=== PATIENT | male | born 1955 | race Caucasian/White ===

== ENCOUNTER 2021-10-15 08:17 | Outpatient (CLI) | payer MEDICARE, MEDICAID, SELFPAY | END 2021-10-15 08:18 | disposition home or self-care (01) | LOC: ANHBWCAUD 08:19 | DX: H90.3 Sensorineural hearing loss, bilateral (principal) | CPT/HCPCS: 92557; 92567 ==

== ENCOUNTER 2024-10-02 08:19 | Outpatient (CLI) | payer MEDICARE, MEDICAID, SELFPAY ==
--- OUTSIDE RECORDS SUMMARY | 2024-10-02 08:37 | XMS_ITS | Encounter Summary ---
Author Organization [facility] Address [address] [place] [address] Phone Care Team Providers Care Monotype Operator Name Role Phone Leopoldo Rodriguez MD Unavailable [phone] Chris Bourgeois MD Primary Care Provider [phone] Encounter Details Date Type Department Care Team (Late st Contact Info) Description 07/07/2021 [facility] 1 [place] [address] Sher Nuñez MD [address] [place] [address] [place] [address] Social History Tobacco Use Types Packs/Day Years Used Date Smoking Tobacco: Never Smokeless Tobacco: Never Alcohol Use Standard Drinks/Week Comments Not Currently 0 (1 standard drink = 0.6 oz pur e alcohol) Sexually Active Control Partners Comments Never Sex and Gender Information Value Date Recorded Sex Assigned at Not on file Legal Sex Male 4:11 PM RINK RAT Gender Identity Not on file Sexual Orientation Not on file documented as of this encounter Plan of Treatment Not on file documented as of this encounter Visit Diagnoses Not on filedocumented in this encounter Additional Health Concerns Infection Onset Date Last Indicated Resolved Time COVID - 19 04/14/2021 08/11/2021 08/13/2021 9:45 AM RINK RAT COVID - 19 Confirmed 08/11/2021 08/11/2021 022 12:16 AM RINK RAT COVID - 19 09/01/2021 09/01/2021 09/21/2021 12:1 6 AM RINK RAT COVID - 19 09/29/2021 10/06/2021 10/26/2021 12:1 7 AM CDT COVID - 19 11/03/2021 05/04/2022 05/05/2022 12:1 8 AM CDT COVID - 19 Confirmed 05/04/2022 05/04/2022 022 12:16 AM CDT COVID - 19 07/20/2022 10/05/2022 10/15/2022 12:1 6 AM CDT COVID - 19 06/09/2024 06/09/2024 06/09/2024 1:18 AM RINK RAT Respiratory Rule-Out 08/27/2024 08/27/2024 025 12:16 AM RINK RAT documented as of this encounter Care Teams Monotype Operator Relationship Specialty Start Date End Date Chris Bourgeois MD [address] [place] [address] PCP - General Internal Medicine 07/03/19 Leopoldo Rodriguez MD Consulting Physician Neurology 09/14/17 06/09/24 documented as of this encounter
--- OUTSIDE RECORDS SUMMARY | 2024-10-02 08:37 | XMS_ITS | Encounter Summary ---
Author Organization [facility] Address [address] [place] [address] Phone Care Team Providers Care Math And Physics Instructor Name Role Phone Leopoldo Rodriguez MD Unavailable [phone] Chris Bourgeois MD Primary Care Provider [phone] Encounter Details Date Type Department Care Team (Late st Contact Info) Description 04/21/2021 Lab Requisition [facility] Laboratory Services 1 [place] [id number] Sher Nuñez MD [address] [place] [address] [facility] [address] [place] [address] Social History Tobacco Use Types Packs/Day Years Used Date Smoking Tobacco: Never Smokeless Tobacco: Never Alcohol Use Standard Drinks/Week Comments Not Currently 0 (1 standard drink = 0.6 oz pur e alcohol) Sexually Active Control Partners Comments Never Sex and Gender Information Value Date Recorded Sex Assigned at Not on file Legal Sex Male 4:11 PM STUDENT SUCCESS COUNSELOR Gender Identity Not on file Sexual Orientation Not on file documented as of this encounter Plan of Treatment Not on file documented as of this encounter Procedures Procedure Name Priority Date/Time Associated Diagnosis Comments SARS-COV-2 BY MOLECULAR Routine 04/21/2021 7:50 AM CDT documented in this encounter Results * SARS-COV-2 BY MOLECULAR (04/21/2021 7:50 AM CDT) SARSCOV2 NOT DETECTED (Referen ce Range for this test is Not Detected ) [facility] THERMOFISHER FAST DX 04/22/2021 5:10 AM CDT [facility] Comment:This test was perfor med by a RT-PCR method. Other Non-Phlebotomy Collection / Unknown 04/21/2021 7:50 AM CDT 04/21/2021 10:55 AM CDT Narrative [facility] - 04/22/2021 5:10 AM CDT Authorized Fact Sheets about this test for providers and patients are available at: https://www.fda.gov/medical-devices/ttaqokkml-znkabilfka-sxlkkmq-devices/emergen -us e-authorizations us Sher Nuñez MD MICROBIOLOGY - GENERAL ORDERAB LES Final Result [facility] [address] [place] [address], documented in this encounter Visit Diagnoses Not on filedocumented in this encounter Additional Health Concerns Infection Onset Date Last Indicated Resolved Time COVID - 19 04/14/2021 08/11/2021 08/13/2021 9:45 AM STUDENT SUCCESS COUNSELOR COVID - 19 Confirmed 08/11/2021 08/11/2021 022 12:16 AM STUDENT SUCCESS COUNSELOR COVID - 19 09/01/2021 09/01/2021 09/21/2021 12:1 6 AM STUDENT SUCCESS COUNSELOR COVID - 19 09/29/2021 10/06/2021 10/26/2021 12:1 7 AM CDT COVID - 19 11/03/2021 05/04/2022 05/05/2022 12:1 8 AM CDT COVID - 19 Confirmed 05/04/2022 05/04/2022 022 12:16 AM CDT COVID - 19 07/20/2022 10/05/2022 10/15/2022 12:1 6 AM CDT COVID - 19 06/09/2024 06/09/2024 06/09/2024 1:18 AM STUDENT SUCCESS COUNSELOR Respiratory Rule-Out 08/27/2024 08/27/2024 025 12:16 AM STUDENT SUCCESS COUNSELOR documented as of this encounter Care Teams Math And Physics Instructor Relationship Specialty Start Date End Date Chris Bourgeois MD [address] [place] [address] PCP - General Internal Medicine 07/03/19 Leopoldo Rodriguez MD Consulting Physician Neurology 09/14/17 06/09/24 documented as of this encounter
--- OUTSIDE RECORDS SUMMARY | 2024-10-02 08:37 | XMS_ITS | Encounter Summary ---
Author Organization [facility] Address [address] [place] [address] Phone Care Team Providers Care Cook Frozen Dessert Name Role Phone Leopoldo Rodriguez MD Unavailable [phone] Chris Bourgeois MD Primary Care Provider [phone] Encounter Details Date Type Department Care Team (Late st Contact Info) Description 07/21/2021 Lab Requisition [facility] Laboratory Services 1 [place] [address] Sher Nuñez MD [address] [place] [address] [facility] [address] [place] [address] Encounter for screening for COVID-19 Social History Tobacco Use Types Packs/Day Years Used Date Smoking Tobacco: Never Smokeless Tobacco: Never Alcohol Use Standard Drinks/Week Comments Not Currently 0 (1 standard drink = 0.6 oz pur e alcohol) Sexually Active Control Partners Comments Never Sex and Gender Information Value Date Recorded Sex Assigned at Not on file Legal Sex Male 4:11 PM DINKEY OPERATOR [place]ATE Gender Identity Not on file Sexual Orientation Not on file documented as of this encounter Plan of Treatment Not on file documented as of this encounter Procedures Procedure Name Priority Date/Time Associated Diagnosis Comments SARS-COV-2 BY MOLECULAR Routine 07/21/2021 7:42 AM DINKEY OPERATOR [place]ATE Encounter for screening for COVID-19 documented in this encounter Results * SARS-COV-2 BY MOLECULAR (07/21/2021 7:42 AM DINKEY OPERATOR [place]) SARSCOV2 NOT DETECTED (Referen ce Range for this test is Not Detected ) [facility] THERMOFISHER FAST DX 07/24/2021 11:18 AM DINKEY OPERATOR [place] [facility] Comment:This test was perfor med by a RT-PCR method. Other No Phlebotomy Charged / Unknown 07/21/2021 7:42 AM DINKEY OPERATOR [place] 07/21/2021 11:03 AM DINKEY OPERATOR [place] Narrative [facility] - 07/24/2021 11:18 AM DINKEY OPERATOR [place] Authorized Fact Sheets about this test for providers and patients are available at: https://www.fda.gov/medical-devices/quffsxtyi-iledqejtlo-eshwfnb-devices/emergen cy-us e-authorizations us Sher Nuñez MD MICROBIOLOGY - GENERAL ORDERAB LES Final Result [facility] [address] [place] [address], documented in this encounter Visit Diagnoses Diagnosis Encounter for screening for COVID-19 documented in this encounter Additional Health Concerns Infection Onset Date Last Indicated Resolved Time COVID - 19 04/14/2021 08/11/2021 08/13/2021 9:45 AM DINKEY OPERATOR [place] COVID - 19 Confirmed 08/11/2021 08/11/2021 022 12:16 AM DINKEY OPERATOR [place] COVID - 19 09/01/2021 09/01/2021 09/21/2021 12:1 6 AM DINKEY OPERATOR [place] COVID - 19 09/29/2021 10/06/2021 10/26/2021 12:1 7 AM CDT COVID - 19 11/03/2021 05/04/2022 05/05/2022 12:1 8 AM CDT COVID - 19 Confirmed 05/04/2022 05/04/2022 022 12:16 AM CDT COVID - 19 07/20/2022 10/05/2022 10/15/2022 12:1 6 AM CDT COVID - 19 06/09/2024 06/09/2024 06/09/2024 1:18 AM DINKEY OPERATOR [place] Respiratory Rule-Out 08/27/2024 08/27/2024 025 12:16 AM DINKEY OPERATOR [place] documented as of this encounter Care Teams Cook Frozen Dessert Relationship Specialty Start Date End Date Chris Bourgeois MD [address] [facility] [address] [place] [address] PCP - General Internal Medicine 07/03/19 Leopoldo Rodriguez MD Consulting Physician Neurology 09/14/17 06/09/24 documented as of this encounter
--- OUTSIDE RECORDS SUMMARY | 2024-10-02 08:37 | XMS_ITS | Encounter Summary ---
Author Organization [facility] Address [address] [place] [address] Phone Care Team Providers Care Chief Design Branch Name Role Phone Leopoldo Rodriguez MD Unavailable [phone] Chris Bourgeois MD Primary Care Provider [phone] Encounter Details Date Type Department Care Team (Late st Contact Info) Description 07/14/2021 Lab Requisition [facility] Laboratory Services 1 [place] [address] Sher Nuñez MD [address] [place] [address] [facility] [address] [place] [address] Encounter for screening for COVID-19 Social History Tobacco Use Types Packs/Day Years Used Date Smoking Tobacco: Never Smokeless Tobacco: Never Alcohol Use Standard Drinks/Week Comments Not Currently 0 (1 standard drink = 0.6 oz pur e alcohol) Sexually Active Control Partners Comments Never Sex and Gender Information Value Date Recorded Sex Assigned at Not on file Legal Sex Male 4:11 PM GOLF CLUB HEAD INSPECTOR AND ADJUSTER Gender Identity Not on file Sexual Orientation Not on file documented as of this encounter Plan of Treatment Not on file documented as of this encounter Procedures Procedure Name Priority Date/Time Associated Diagnosis Comments SARS-COV-2 BY MOLECULAR Routine 07/14/2021 7:30 AM GOLF CLUB HEAD INSPECTOR AND ADJUSTER Encounter for screening for COVID-19 documented in this encounter Results * SARS-COV-2 BY MOLECULAR (07/14/2021 7:30 AM GOLF CLUB HEAD INSPECTOR AND ADJUSTER) SARSCOV2 NOT DETECTED (Referen ce Range for this test is Not Detected ) [facility] THERMOFISHER FAST DX 07/17/2021 8:57 AM GOLF CLUB HEAD INSPECTOR AND ADJUSTER [facility] Comment:This test was perfor med by a RT-PCR method. Other No Phlebotomy Charged / Unknown 07/14/2021 7:30 AM GOLF CLUB HEAD INSPECTOR AND ADJUSTER 07/14/2021 10:46 AM GOLF CLUB HEAD INSPECTOR AND ADJUSTER Narrative [facility] - 07/17/2021 8:57 AM GOLF CLUB HEAD INSPECTOR AND ADJUSTER Authorized Fact Sheets about this test for providers and patients are available at: https://www.fda.gov/medical-devices/ubupnbjlo-yzhtlljmyz-oupjunb-devices/emergen cy-us e-authorizations us Sher Nuñez MD MICROBIOLOGY - GENERAL ORDERAB LES Final Result [facility] [address] [place] [address], documented in this encounter Visit Diagnoses Diagnosis Encounter for screening for COVID-19 documented in this encounter Additional Health Concerns Infection Onset Date Last Indicated Resolved Time COVID - 19 04/14/2021 08/11/2021 08/13/2021 9:45 AM GOLF CLUB HEAD INSPECTOR AND ADJUSTER COVID - 19 Confirmed 08/11/2021 08/11/2021 022 12:16 AM GOLF CLUB HEAD INSPECTOR AND ADJUSTER COVID - 19 09/01/2021 09/01/2021 09/21/2021 12:1 6 AM GOLF CLUB HEAD INSPECTOR AND ADJUSTER COVID - 19 09/29/2021 10/06/2021 10/26/2021 12:1 7 AM CDT COVID - 19 11/03/2021 05/04/2022 05/05/2022 12:1 8 AM CDT COVID - 19 Confirmed 05/04/2022 05/04/2022 022 12:16 AM CDT COVID - 19 07/20/2022 10/05/2022 10/15/2022 12:1 6 AM CDT COVID - 19 06/09/2024 06/09/2024 06/09/2024 1:18 AM GOLF CLUB HEAD INSPECTOR AND ADJUSTER Respiratory Rule-Out 08/27/2024 08/27/2024 025 12:16 AM GOLF CLUB HEAD INSPECTOR AND ADJUSTER documented as of this encounter Care Teams Chief Design Branch Relationship Specialty Start Date End Date Chris Bourgeois MD [address] [facility] [address] [place] [address] PCP - General Internal Medicine 07/03/19 Leopoldo Rodriguez MD Consulting Physician Neurology 09/14/17 06/09/24 documented as of this encounter
--- OUTSIDE RECORDS SUMMARY | 2024-10-02 08:37 | XMS_ITS | Encounter Summary ---
Author Organization [facility] Address [address] [place] [address] Phone Care Team Providers Care Bean Sorter Name Role Phone Leopoldo Rodriguez MD Unavailable [phone] Chris Bourgeois MD Primary Care Provider [phone] Encounter Details Date Type Department Care Team (Late st Contact Info) Description 07/07/2021 Lab Requisition [facility] Laboratory Services 1 [place] [address] Sher Nuñez MD [address] [place] [address] [facility] [address] [place] [address] Encounter for screening for COVID-19 Social History Tobacco Use Types Packs/Day Years Used Date Smoking Tobacco: Never Smokeless Tobacco: Never Alcohol Use Standard Drinks/Week Comments Not Currently 0 (1 standard drink = 0.6 oz pur e alcohol) Sexually Active Control Partners Comments Never Sex and Gender Information Value Date Recorded Sex Assigned at Not on file Legal Sex Male 4:11 PM FOOD SERVICE TECHNICIAN Gender Identity Not on file Sexual Orientation Not on file documented as of this encounter Plan of Treatment Not on file documented as of this encounter Procedures Procedure Name Priority Date/Time Associated Diagnosis Comments SARS-COV-2 BY MOLECULAR Routine 07/07/2021 7:34 AM FOOD SERVICE TECHNICIAN Encounter for screening for COVID-19 documented in this encounter Results * SARS-COV-2 BY MOLECULAR (07/07/2021 7:34 AM FOOD SERVICE TECHNICIAN) SARSCOV2 NOT DETECTED (Referen ce Range for this test is Not Detected ) [facility] THERMOFISHER FAST DX 07/09/2021 2:29 PM FOOD SERVICE TECHNICIAN [facility] Comment:This test was perfor med by a RT-PCR method. Other No Phlebotomy Charged / Unknown 07/07/2021 7:34 AM FOOD SERVICE TECHNICIAN 07/07/2021 11:34 AM FOOD SERVICE TECHNICIAN Narrative [facility] - 07/09/2021 2:29 PM FOOD SERVICE TECHNICIAN Authorized Fact Sheets about this test for providers and patients are available at: https://www.fda.gov/medical-devices/mvusiqdnt-cwmymehppt-thoupik-devices/emergen cy-us e-authorizations us Sher Nuñez MD MICROBIOLOGY - GENERAL ORDERAB LES Final Result [facility] [address] [place] [address], documented in this encounter Visit Diagnoses Diagnosis Encounter for screening for COVID-19 documented in this encounter Additional Health Concerns Infection Onset Date Last Indicated Resolved Time COVID - 19 04/14/2021 08/11/2021 08/13/2021 9:45 AM FOOD SERVICE TECHNICIAN COVID - 19 Confirmed 08/11/2021 08/11/2021 022 12:16 AM FOOD SERVICE TECHNICIAN COVID - 19 09/01/2021 09/01/2021 09/21/2021 12:1 6 AM FOOD SERVICE TECHNICIAN COVID - 19 09/29/2021 10/06/2021 10/26/2021 12:1 7 AM CDT COVID - 19 11/03/2021 05/04/2022 05/05/2022 12:1 8 AM CDT COVID - 19 Confirmed 05/04/2022 05/04/2022 022 12:16 AM CDT COVID - 19 07/20/2022 10/05/2022 10/15/2022 12:1 6 AM CDT COVID - 19 06/09/2024 06/09/2024 06/09/2024 1:18 AM FOOD SERVICE TECHNICIAN Respiratory Rule-Out 08/27/2024 08/27/2024 025 12:16 AM FOOD SERVICE TECHNICIAN documented as of this encounter Care Teams Bean Sorter Relationship Specialty Start Date End Date Chris Bourgeois MD [address] [place] [address] PCP - General Internal Medicine 07/03/19 Leopoldo Rodriguez MD Consulting Physician Neurology 09/14/17 06/09/24 documented as of this encounter
--- OUTSIDE RECORDS SUMMARY | 2024-10-02 08:37 | XMS_ITS | Encounter Summary ---
Author Organization [facility] Address [address] [place] [address] Phone Care Team Providers Care Calibration Specialist Name Role Phone Leopoldo Rodriguez MD Unavailable [phone] Chris Bourgeois MD Primary Care Provider [phone] Encounter Details Date Type Department Care Team (Late st Contact Info) Description 04/14/2021 Lab Requisition [facility] Laboratory Services 1 [place] [address] Sher Nuñez MD [address] [place] [address] [address] [place] [address] Encounter for screening for COVID-19 Social History Tobacco Use Types Packs/Day Years Used Date Smoking Tobacco: Never Smokeless Tobacco: Never Alcohol Use Standard Drinks/Week Comments Not Currently 0 (1 standard drink = 0.6 oz pur e alcohol) Sexually Active Control Partners Comments Never Sex and Gender Information Value Date Recorded Sex Assigned at Not on file Legal Sex Male 4:11 PM CLAIMS SERVICE ADJUSTOR Gender Identity Not on file Sexual Orientation Not on file documented as of this encounter Plan of Treatment Not on file documented as of this encounter Procedures Procedure Name Priority Date/Time Associated Diagnosis Comments SARS-COV-2 BY MOLECULAR Routine 04/14/2021 8:58 AM CDT documented in this encounter Results * SARS-COV-2 BY MOLECULAR (04/14/2021 8:58 AM CDT) SARSCOV2 NOT DETECTED (Referen ce Range for this test is Not Detected ) [facility] THERMOFISHER FAST DX 04/15/2021 8:26 AM CDT [facility] Comment:This test was perfor med by a RT-PCR method. Other No Phlebotomy Charged / Unknown 04/14/2021 8:58 AM CDT 04/14/2021 11:15 AM CDT Narrative [facility] - 04/15/2021 8:26 AM CDT Authorized Fact Sheets about this test for providers and patients are available at: https://www.fda.gov/medical-devices/ikrsozeqq-ilrdabbwzm-xjugnwn-devices/emergen cy-us e-authorizations us Sher Nuñez MD MICROBIOLOGY - GENERAL ORDERAB LES Final Result [facility] [address] [place] [address], documented in this encounter Visit Diagnoses Diagnosis Encounter for screening for COVID-19 documented in this encounter Additional Health Concerns Infection Onset Date Last Indicated Resolved Time COVID - 19 04/14/2021 08/11/2021 08/13/2021 9:45 AM CLAIMS SERVICE ADJUSTOR COVID - 19 Confirmed 08/11/2021 08/11/2021 022 12:16 AM CLAIMS SERVICE ADJUSTOR COVID - 19 09/01/2021 09/01/2021 09/21/2021 12:1 6 AM CLAIMS SERVICE ADJUSTOR COVID - 19 09/29/2021 10/06/2021 10/26/2021 12:1 7 AM CDT COVID - 19 11/03/2021 05/04/2022 05/05/2022 12:1 8 AM CDT COVID - 19 Confirmed 05/04/2022 05/04/2022 022 12:16 AM CDT COVID - 19 07/20/2022 10/05/2022 10/15/2022 12:1 6 AM CDT COVID - 19 06/09/2024 06/09/2024 06/09/2024 1:18 AM CLAIMS SERVICE ADJUSTOR Respiratory Rule-Out 08/27/2024 08/27/2024 025 12:16 AM CLAIMS SERVICE ADJUSTOR documented as of this encounter Care Teams Calibration Specialist Relationship Specialty Start Date End Date Chris Bourgeois MD [address] [place] [address] PCP - General Internal Medicine 07/03/19 Leopoldo Rodriguez MD Consulting Physician Neurology 09/14/17 06/09/24 documented as of this encounter
--- OUTSIDE RECORDS SUMMARY | 2024-10-02 08:37 | XMS_ITS | Encounter Summary ---
Author Organization [facility] Address [address] [place] [address] Phone Care Team Providers Care Chinchilla Machine Operator Name Role Phone Leopoldo Rodriguez MD Unavailable [phone] Chris Bourgeois MD Primary Care Provider [phone] Reason for Referral * Radiology Services (Routine) - Closed Specialty Diagnoses / Procedures Referred By Yoav levine Referred To Contact Radiology Diagnoses Pre-operative cardiovascular examination Encounter for preoperative screening laboratory testing for COVID-19 virus Localized osteoarthritis of knees, bilateral Procedures EKG 12 LEAD Yohan Camargo MD Phone: tel: fax: Referral ID Status Reason Start Date Expiration Date Visits Re quested Visits Authorized [id number] Closed 08/05/2020 1 1 TING CLERK * Radiology Services (Routine) - Closed Specialty Diagnoses / Procedures Referred By Yoav levine Referred To Contact Radiology Diagnoses Pre-operative cardiovascular examination Encounter for preoperative screening laboratory testing for COVID-19 virus Localized osteoarthritis of knees, bilateral Procedures XR CHEST SINGLE VIEW Yohan Camargo MD Phone: tel: fax: Referral ID Status Reason Start Date Expiration Date Visits Re quested Visits Authorized [id number] Closed 08/05/2020 1 1 TING CLERK Encounter Details Date Type Department Care Team (Latest Contact Info) Description 08/05/2020 Transcribe Orders [facility] Admitting 1 [place] [address] Yohan Camargo MD [address] [id number] Pre-operative cardiovascular examination (Primary Dx); Encounter for preoperative screening laboratory testing for COVID-19 virus; Localized osteoarthritis of knees, bilateral Social History Tobacco Use Types Packs/Day Years Used Date Smoking Tobacco: Never Smokeless Tobacco: Never Alcohol Use Standard Drinks/Week Comments Not Currently 0 (1 standard drink = 0.6 oz pur e alcohol) Sexually Active Control Partners Comments Never Sex and Gender Information Value Date Recorded Sex Assigned at Not on file Legal Sex Male 4:11 PM CHARTING CLERK Gender Identity Not on file Sexual Orientation Not on file COVID-19 Exposure Response Date Recorded In the last month, have you been in contact with someone who was confirmed or suspected to have Coronavirus / COVID-19? No / Unsure 08/06/2020 8:45 AM CHARTING CLERK documented as of this encounter Plan of Treatment Scheduled Orders Name Type Priority Associated Diagnoses Orde r Schedule XR CHEST SINGLE VIEW Imaging Routine Pre-operative cardiovascular examination Encounter for preoperative screening laboratory testing for COVID-19 virus Localized osteoarthritis of knees, bilateral Expected: 08/05/2020, Expires: 08/05/2021 EKG 12 LEAD ECG Routine Pre-operative cardiovascular examination Encounter for preoperative screening laboratory testing for COVID-19 virus Localized osteoarthritis of knees, bilateral Expected: 08/05/2020, Expires: 08/05/2021 documented as of this encounter Visit Diagnoses Diagnosis Pre-operative cardiovascular examination- Primary Encounter for preoperative screening laboratory testing for COVID-19 virus Localized osteoarthritis of knees, bilateral documented in this encounter Additional Health Concerns Infection Onset Date Last Indicated Resolved Time COVID - 19 04/14/2021 08/11/2021 08/13/2021 9:45 AM CHARTING CLERK COVID - 19 Confirmed 08/11/2021 08/11/2021 022 12:16 AM CHARTING CLERK COVID - 19 09/01/2021 09/01/2021 09/21/2021 12:1 6 AM CHARTING CLERK COVID - 19 09/29/2021 10/06/2021 10/26/2021 12:1 7 AM CDT COVID - 19 11/03/2021 05/04/202205/0505/05/2022 12:1 8 AM CDT COVID - 19 Confirmed 05/04/2022 05/04/2022 022 12:16 AM CDT COVID - 19 07/20/2022 10/05/2022 10/15/2022 12:1 6 AM CDT COVID - 19 06/09/2024 06/09/2024 06/09/2024 1:18 AM CHARTING CLERK Respiratory Rule-Out 08/27/2024 08/27/2024 025 12:16 AM CHARTING CLERK documented as of this encounter Care Teams Chinchilla Machine Operator Relationship Specialty Start Date End Date Chris Bourgeois MD [address] [address] PCP - General Internal Medicine 07/03/19 Leopoldo Rodriguez MD Consulting Physician Neurology 09/14/17 06/09/24 documented as of this encounter
--- OUTSIDE RECORDS SUMMARY | 2024-10-02 08:38 | XMS_ITS | Encounter Summary ---
Author Organization [facility] Address [address] [place] [address] Phone Care Team Providers Care River Guide Name Role Phone Leopoldo Rodriguez MD Unavailable [phone] Chris Bourgeois MD Primary Care Provider [phone] Encounter Details Date Type Department Care Team (Late st Contact Info) Description 09/14/2022 Lab Requisition [facility] Laboratory Services 1 [place] [address] Sher Nuñez MD [address] [place] [address] [facility] [address] [place] [address] Encounter for screening for COVID-19 Social History Tobacco Use Types Packs/Day Years Used Date Smoking Tobacco: Never Smokeless Tobacco: Never Alcohol Use Standard Drinks/Week Comments Not Currently 0 (1 standard drink = 0.6 oz pur e alcohol) Sexually Active Control Partners Comments Never Sex and Gender Information Value Date Recorded Sex Assigned at Not on file Legal Sex Male 4:11 PM CARBIDE POWDER PROCESSOR Gender Identity Not on file Sexual Orientation Not on file documented as of this encounter Plan of Treatment Not on file documented as of this encounter Procedures Procedure Name Priority Date/Time Associated Diagnosis Comments SARS-COV-2 BY MOLECULAR Routine 09/14/2022 7:36 AM CARBIDE POWDER PROCESSOR Encounter for screening for COVID-19 documented in this encounter Results * SARS-COV-2 BY MOLECULAR (09/14/2022 7:36 AM CARBIDE POWDER PROCESSOR) SARSCOV2 NOT DETECTED (Referen ce Range for this test is Not Detected ) [facility] THERMOFISHER FAST DX 09/15/2022 12:34 AM CARBIDE POWDER PROCESSOR [facility] Comment:This test was perfor med by a RT-PCR method. Other Non-Phlebotomy Collection / Unknown 09/14/2022 7:36 AM CARBIDE POWDER PROCESSOR 09/14/2022 10:21 AM CARBIDE POWDER PROCESSOR Narrative [facility] - 09/15/2022 12:34 AM CARBIDE POWDER PROCESSOR Authorized Fact Sheets about this test for providers and patients are available at: https://www.fda.gov/medical-devices/pdvrlbckx-lchgthtqnt-sehvrgo-devices/emergen cy-us e-authorizations us Sher Nuñez MD MICROBIOLOGY - GENERAL ORDERAB LES Final Result [facility] [address] [place] [address], documented in this encounter Visit Diagnoses Diagnosis Encounter for screening for COVID-19 documented in this encounter Additional Health Concerns Infection Onset Date Last Indicated Resolved Time COVID - 19 07/20/2022 10/05/2022 10/15/2022 12:1 6 AM CDT COVID - 19 06/09/2024 06/09/2024 06/09/2024 1:18 AM CARBIDE POWDER PROCESSOR Respiratory Rule-Out 08/27/2024 08/27/2024 025 12:16 AM CARBIDE POWDER PROCESSOR documented as of this encounter Care Teams River Guide Relationship Specialty Start Date End Date Chris Bourgeois MD [address] [facility] [address] [place] [address] PCP - General Internal Medicine 07/03/19 Leopoldo Rodriguez MD Consulting Physician Neurology 09/14/17 06/09/24 documented as of this encounter
--- OUTSIDE RECORDS SUMMARY | 2024-10-02 08:38 | XMS_ITS | Encounter Summary ---
Author Organization [facility] Address [address] [place] [address] Phone Care Team Providers Care Bottom Liquor Attendant Name Role Phone Leopoldo Rodriguez MD Unavailable [phone] Chris Bourgeois MD Primary Care Provider Encounter Details Date Type Department Care Team (Late st Contact Info) Description 06/23/2021 Lab Requisition [facility] Laboratory Services 1 [place] [id number] Sher Nuñez MD [address] [place] [address] [facility] [address] [place] [address] Social History Tobacco Use Types Packs/Day Years Used Date Smoking Tobacco: Never Smokeless Tobacco: Never Alcohol Use Standard Drinks/Week Comments Not Currently 0 (1 standard drink = 0.6 oz pur e alcohol) Sexually Active Control Partners Comments Never Sex and Gender Information Value Date Recorded Sex Assigned at Not on file Legal Sex Male 4:11 PM CHEMICAL INSPECTOR Gender Identity Not on file Sexual Orientation Not on file documented as of this encounter Plan of Treatment Not on file documented as of this encounter Procedures Procedure Name Priority Date/Time Associated Diagnosis Comments SARS-COV-2 BY MOLECULAR Routine 06/23/2021 7:23 AM CHEMICAL INSPECTOR documented in this encounter Results * SARS-COV-2 BY MOLECULAR (06/23/2021 7:23 AM CHEMICAL INSPECTOR) SARSCOV2 NOT DETECTED (Referen ce Range for this test is Not Detected ) [facility] THERMOFISHER FAST DX 06/24/2021 6:32 PM CHEMICAL INSPECTOR [facility] Comment:This test was perfor med by a RT-PCR method. Other Non-Phlebotomy Collection / Unknown 06/23/2021 7:23 AM CHEMICAL INSPECTOR 06/23/2021 11:28 AM CHEMICAL INSPECTOR Narrative [facility] - 06/24/2021 6:32 PM CHEMICAL INSPECTOR Authorized Fact Sheets about this test for providers and patients are available at: https://www.fda.gov/medical-devices/fwmxdjnjx-fgqpqkfikf-ezeevbk-devices/emergen cy-us e-authorizations us Sher Nuñez MD MICROBIOLOGY - GENERAL ORDERAB LES Final Result [facility] [address] [place] [address], documented in this encounter Visit Diagnoses Not on filedocumented in this encounter Additional Health Concerns Infection Onset Date Last Indicated Resolved Time COVID - 19 04/14/2021 08/11/2021 08/13/2021 9:45 AM CHEMICAL INSPECTOR COVID - 19 Confirmed 08/11/2021 08/11/2021 022 12:16 AM CHEMICAL INSPECTOR COVID - 19 09/01/2021 09/01/2021 09/21/2021 12:1 6 AM CHEMICAL INSPECTOR COVID - 19 09/29/2021 10/06/2021 10/26/2021 12:1 7 AM CDT COVID - 19 11/03/2021 05/04/2022 05/05/2022 12:1 8 AM CDT COVID - 19 Confirmed 05/04/2022 05/04/2022 022 12:16 AM CDT COVID - 19 07/20/2022 10/05/2022 10/15/2022 12:1 6 AM CDT COVID - 19 06/09/2024 06/09/2024 06/09/2024 1:18 AM CHEMICAL INSPECTOR Respiratory Rule-Out 08/27/2024 08/27/2024 025 12:16 AM CHEMICAL INSPECTOR documented as of this encounter Care Teams Bottom Liquor Attendant Relationship Specialty Start Date End Date Chris Bourgeois MD [address] [place] [address] PCP - General Internal Medicine 07/03/19 Leopoldo Rodriguez MD Consulting Physician Neurology 09/14/17 06/09/24 documented as of this encounter
--- OUTSIDE RECORDS SUMMARY | 2024-10-02 08:38 | XMS_ITS | Encounter Summary ---
Author Organization [facility] Address [address] [place] [address] Phone Care Team Providers Care Insurance Billing Clerk Name Role Phone Leopoldo Rodriguez MD Unavailable [phone] Chris Bourgeois MD Primary Care Provider [phone] Encounter Details Date Type Department Care Team (Late st Contact Info) Description 09/21/2022 Lab Requisition [facility] Laboratory Services 1 [place] [address] Sher Nuñez MD [address] [place] [address] [facility] [address] [place] [address] Encounter for screening for COVID-19 Social History Tobacco Use Types Packs/Day Years Used Date Smoking Tobacco: Never Smokeless Tobacco: Never Alcohol Use Standard Drinks/Week Comments Not Currently 0 (1 standard drink = 0.6 oz pur e alcohol) Sexually Active Control Partners Comments Never Sex and Gender Information Value Date Recorded Sex Assigned at Not on file Legal Sex Male 4:11 PM MESSAGING ARCHITECT Gender Identity Not on file Sexual Orientation Not on file documented as of this encounter Plan of Treatment Not on file documented as of this encounter Procedures Procedure Name Priority Date/Time Associated Diagnosis Comments SARS-COV-2 BY MOLECULAR Routine 09/21/2022 7:44 AM MESSAGING ARCHITECT Encounter for screening for COVID-19 documented in this encounter Results * SARS-COV-2 BY MOLECULAR (09/21/2022 7:44 AM MESSAGING ARCHITECT) SARSCOV2 NOT DETECTED (Referen ce Range for this test is Not Detected ) [facility] THERMOFISHER FAST DX 09/22/2022 8:02 AM MESSAGING ARCHITECT [facility] Comment:This test was perfor med by a RT-PCR method. Other Non-Phlebotomy Collection / Unknown 09/21/2022 7:44 AM MESSAGING ARCHITECT 09/21/2022 10:38 AM MESSAGING ARCHITECT Narrative [facility] - 09/22/2022 8:02 AM MESSAGING ARCHITECT Authorized Fact Sheets about this test for providers and patients are available at: https://www.fda.gov/medical-devices/dhfjdgukt-wjlqjphabn-shgjpha-devices/emergen cy-us e-authorizations us Sher Nuñez MD MICROBIOLOGY - GENERAL ORDERAB LES Final Result [facility] [address] [place] [address], documented in this encounter Visit Diagnoses Diagnosis Encounter for screening for COVID-19 documented in this encounter Additional Health Concerns Infection Onset Date Last Indicated Resolved Time COVID - 19 07/20/2022 10/05/2022 10/15/2022 12:1 6 AM CDT COVID - 19 06/09/2024 06/09/2024 06/09/2024 1:18 AM MESSAGING ARCHITECT Respiratory Rule-Out 08/27/2024 08/27/2024 025 12:16 AM MESSAGING ARCHITECT documented as of this encounter Care Teams Insurance Billing Clerk Relationship Specialty Start Date End Date Chris Bourgeois MD [address] [facility] [address] [place] [address] PCP - General Internal Medicine 07/03/19 Leopoldo Rodriguez MD Consulting Physician Neurology 09/14/17 06/09/24 documented as of this encounter
--- OUTSIDE RECORDS SUMMARY | 2024-10-02 08:38 | XMS_ITS | Encounter Summary ---
Author Organization [facility] Address [address] [place] [address] Phone Care Team Providers Care Electron Microscopist Name Role Phone Leopoldo Rodriguez MD Unavailable [phone] Chris Bourgeois MD Primary Care Provider [phone] Encounter Details Date Type Department Care Team (Late st Contact Info) Description 08/31/2022 Lab Requisition [facility] Laboratory Services 1 [place] [address] Sher Nuñez MD [address] [place] [address] [facility] [address] [place] [address] Encounter for screening for COVID-19 Social History Tobacco Use Types Packs/Day Years Used Date Smoking Tobacco: Never Smokeless Tobacco: Never Alcohol Use Standard Drinks/Week Comments Not Currently 0 (1 standard drink = 0.6 oz pur e alcohol) Sexually Active Control Partners Comments Never Sex and Gender Information Value Date Recorded Sex Assigned at Not on file Legal Sex Male 4:11 PM FLOUR INSPECTOR Gender Identity Not on file Sexual Orientation Not on file documented as of this encounter Plan of Treatment Not on file documented as of this encounter Procedures Procedure Name Priority Date/Time Associated Diagnosis Comments SARS-COV-2 BY MOLECULAR Routine 08/31/2022 7:33 AM FLOUR INSPECTOR Encounter for screening for COVID-19 documented in this encounter Results * SARS-COV-2 BY MOLECULAR (08/31/2022 7:33 AM FLOUR INSPECTOR) SARSCOV2 NOT DETECTED (Referen ce Range for this test is Not Detected ) [facility] THERMOFISHER FAST DX 08/31/2022 11:05 PM FLOUR INSPECTOR [facility] Comment:This test was perfor med by a RT-PCR method. Other Non-Phlebotomy Collection / Unknown 08/31/2022 7:33 AM FLOUR INSPECTOR 08/31/2022 10:20 AM FLOUR INSPECTOR Narrative [facility] - 08/31/2022 11:05 PM FLOUR INSPECTOR Authorized Fact Sheets about this test for providers and patients are available at: https://www.fda.gov/medical-devices/jngxhybxt-kujdqvuvau-obwhkig-devices/emergen cy-us e-authorizations us Sher Nuñez MD MICROBIOLOGY - GENERAL ORDERAB LES Final Result [facility] [address] [place] [address], documented in this encounter Visit Diagnoses Diagnosis Encounter for screening for COVID-19 documented in this encounter Additional Health Concerns Infection Onset Date Last Indicated Resolved Time COVID - 19 07/20/2022 10/05/2022 10/15/2022 12:1 6 AM CDT COVID - 19 06/09/2024 06/09/2024 06/09/2024 1:18 AM FLOUR INSPECTOR Respiratory Rule-Out 08/27/2024 08/27/2024 025 12:16 AM FLOUR INSPECTOR documented as of this encounter Care Teams Electron Microscopist Relationship Specialty Start Date End Date Chris Bourgeois MD [address] [facility] [address] [place] [address] PCP - General Internal Medicine 07/03/19 Leopoldo Rodriguez MD Consulting Physician Neurology 09/14/17 06/09/24 documented as of this encounter
--- OUTSIDE RECORDS SUMMARY | 2024-10-02 08:38 | XMS_ITS | Encounter Summary ---
Author Organization [facility] Address [address] [place] [address] Phone Care Team Providers Care Field Secretary Name Role Phone Leoopldo Rodriguez MD Unavailable [phone] Chris Bourgeois MD Primary Care Provider [phone] Encounter Details Date Type Department Care Team (Late st Contact Info) Description 08/10/2022 Lab Requisition [facility] Laboratory Services 1 [place] [address] Sher Nuñez MD [address] [place] [address] [facility] [address] [place] [address] Encounter for screening for COVID-19 Social History Tobacco Use Types Packs/Day Years Used Date Smoking Tobacco: Never Smokeless Tobacco: Never Alcohol Use Standard Drinks/Week Comments Not Currently 0 (1 standard drink = 0.6 oz pur e alcohol) Sexually Active Control Partners Comments Never Sex and Gender Information Value Date Recorded Sex Assigned at Not on file Legal Sex Male 4:11 PM CASH APPLICATIONS SPECIALIST Gender Identity Not on file Sexual Orientation Not on file documented as of this encounter Plan of Treatment Not on file documented as of this encounter Procedures Procedure Name Priority Date/Time Associated Diagnosis Comments SARS-COV-2 BY MOLECULAR Routine 08/10/2022 7:24 AM CASH APPLICATIONS SPECIALIST Encounter for screening for COVID-19 documented in this encounter Results * SARS-COV-2 BY MOLECULAR (08/10/2022 7:24 AM CASH APPLICATIONS SPECIALIST) SARSCOV2 NOT DETECTED (Referen ce Range for this test is Not Detected ) [facility] THERMOFISHER FAST DX 08/10/2022 8:36 PM CASH APPLICATIONS SPECIALIST [facility] Comment:This test was perfor med by a RT-PCR method. Other COVID 19 Collection / Unknown 08/10/2022 7:24 AM CASH APPLICATIONS SPECIALIST 08/10/2022 10:03 AM CASH APPLICATIONS SPECIALIST Narrative [facility] - 08/10/2022 8:36 PM CASH APPLICATIONS SPECIALIST Authorized Fact Sheets about this test for providers and patients are available at: https://www.fda.gov/medical-devices/vwjgrxmma-nklqzndgkt-puwvcbu-devices/emergen cy-us e-authorizations us Sher Nuñez MD MICROBIOLOGY - GENERAL ORDERAB LES Final Result [facility] [address] [place] [address], documented in this encounter Visit Diagnoses Diagnosis Encounter for screening for COVID-19 documented in this encounter Additional Health Concerns Infection Onset Date Last Indicated Resolved Time COVID - 19 07/20/2022 10/05/2022 10/15/2022 12:1 6 AM CDT COVID - 19 06/09/2024 06/09/2024 06/09/2024 1:18 AM CASH APPLICATIONS SPECIALIST Respiratory Rule-Out 08/27/2024 08/27/2024 025 12:16 AM CASH APPLICATIONS SPECIALIST documented as of this encounter Care Teams Field Secretary Relationship Specialty Start Date End Date Chris Bourgeois MD [address] [facility] [address] [place] [address] PCP - General Internal Medicine 07/03/19 Leopoldo Rodriguez MD Consulting Physician Neurology 09/14/17 06/09/24 documented as of this encounter
--- OUTSIDE RECORDS SUMMARY | 2024-10-02 08:38 | XMS_ITS | Encounter Summary ---
Author Organization [facility] Address [address] [place] [address] Phone Care Team Providers Care .Net Architect Name Role Phone Leopoldo Rodriguez MD Unavailable [phone] Chris Bourgeois MD Primary Care Provider [phone] Encounter Details Date Type Department Care Team (Late st Contact Info) Description 07/27/2022 Lab Requisition [facility] Laboratory Services 1 [place] [address] Sher Nuñez MD [address] [place] [address] [facility] [address] [place] [address] Encounter for screening for COVID-19 Social History Tobacco Use Types Packs/Day Years Used Date Smoking Tobacco: Never Smokeless Tobacco: Never Alcohol Use Standard Drinks/Week Comments Not Currently 0 (1 standard drink = 0.6 oz pur e alcohol) Sexually Active Control Partners Comments Never Sex and Gender Information Value Date Recorded Sex Assigned at Not on file Legal Sex Male 4:11 PM INSTRUMENT OPERATOR Gender Identity Not on file Sexual Orientation Not on file documented as of this encounter Plan of Treatment Not on file documented as of this encounter Procedures Procedure Name Priority Date/Time Associated Diagnosis Comments SARS-COV-2 BY MOLECULAR Routine 07/27/2022 7:17 AM INSTRUMENT OPERATOR Encounter for screening for COVID-19 documented in this encounter Results * SARS-COV-2 BY MOLECULAR (07/27/2022 7:17 AM INSTRUMENT OPERATOR) SARSCOV2 NOT DETECTED (Referen ce Range for this test is Not Detected ) [facility] THERMOFISHER FAST DX 07/27/2022 9:20 PM INSTRUMENT OPERATOR [facility] Comment:This test was perfor med by a RT-PCR method. Other COVID 19 Collection / Unknown 07/27/2022 7:17 AM INSTRUMENT OPERATOR 07/27/2022 9:50 AM INSTRUMENT OPERATOR Narrative [facility] - 07/27/2022 9:20 PM INSTRUMENT OPERATOR Authorized Fact Sheets about this test for providers and patients are available at: https://www.fda.gov/medical-devices/cfnqgwilm-hhlpzkbqrw-lddpaed-devices/emergen cy-us e-authorizations us Sher Nuñez MD MICROBIOLOGY - GENERAL ORDERAB LES Final Result [facility] [address] [place] [address], documented in this encounter Visit Diagnoses Diagnosis Encounter for screening for COVID-19 documented in this encounter Additional Health Concerns Infection Onset Date Last Indicated Resolved Time COVID - 19 07/20/2022 10/05/2022 10/15/2022 12:1 6 AM CDT COVID - 19 06/09/2024 06/09/2024 06/09/2024 1:18 AM INSTRUMENT OPERATOR Respiratory Rule-Out 08/27/2024 08/27/2024 025 12:16 AM INSTRUMENT OPERATOR documented as of this encounter Care Teams .Net Architect Relationship Specialty Start Date End Date Chris Bourgeois MD [address] [facility] [address] [place] [address] PCP - General Internal Medicine 07/03/19 Leopoldo Rodriguez MD Consulting Physician Neurology 09/14/17 06/09/24 documented as of this encounter
--- OUTSIDE RECORDS SUMMARY | 2024-10-02 08:38 | XMS_ITS | Encounter Summary ---
Author Organization [facility] Address [address] [place] [address] Phone Care Team Providers Care Split Leather Mosser Name Role Phone Leopoldo Rodriguez MD Unavailable [phone] Chris Bourgeois MD Primary Care Provider [phone] Reason for Visit * Reason Comments Medication Refill Encounter Details Date Type Department Care Team (Late st Contact Info) Description 04/21/2021 Refill [facility] [place] [address] Josue Lira MD [address] [facility] [address] [place] [address] Medication Refill Social History Tobacco Use Types Packs/Day Years Used Date Smoking Tobacco: Never Smokeless Tobacco: Never Alcohol Use Standard Drinks/Week Comments Not Currently 0 (1 standard drink = 0.6 oz pur e alcohol) Sexually Active Control Partners Comments Never Sex and Gender Information Value Date Recorded Sex Assigned at Not on file Legal Sex Male 4:11 PM POST ADOPTION COORDINATOR Gender Identity Not on file Sexual Orientation Not on file documented as of this encounter Miscellaneous Notes * Telephone Encounter - Bonnie Cody RN - 04/22/2021 7:39 AM CDT Medication failed the protocol, provider to review and approve the medication order if appropriate. Requested Prescriptions Pending Prescriptions Disp Refills oxybutynin (DITROPAN) 5 MG Tablet [Pharmacy Med Name: OXYBUTYNIN 5 MG TABLET] 60 Tablet 0 Sig: TAKE (1) TABLET BY MOUTH TWICE DAILY. Urinary Anticholinergics Protocol Failed - 04/21/2021 4:38 PM Failed - Active on medication list Passed - Visit with relevant provider in past 12 months or upcoming 90 days Recent Visits Date Type Provider Dept 08/03/20 Telemedicine Josue Lira MD [facility] [place] 06/15/20 Telemedicine Josue Lira MD [facility] [place] Showing recent visits within past 365 days and meeting all other requirements Future Appointments No visits were found meeting these conditions. Showing future appointments within next 90 days and meeting all other requirements Passed - GFR greater than or equal to 30 in past 12 months GFR, EST. NONAFRICAN Date Value Ref Range Status 08/14/2020 >60 >=60 Final documented in this encounter Plan of Treatment Not on file documented as of this encounter Visit Diagnoses Not on filedocumented in this encounter Additional Health Concerns Infection Onset Date Last Indicated Resolved Time COVID - 19 04/14/2021 08/11/2021 08/13/2021 9:45 AM POST ADOPTION COORDINATOR COVID - 19 Confirmed 08/11/2021 08/11/2021 022 12:16 AM POST ADOPTION COORDINATOR COVID - 19 09/01/2021 09/01/2021 09/21/2021 12:1 6 AM POST ADOPTION COORDINATOR COVID - 19 09/29/2021 10/06/2021 10/26/2021 12:1 7 AM CDT COVID - 19 11/03/2021 05/04/2022 05/05/2022 12:1 8 AM CDT COVID - 19 Confirmed 05/04/2022 05/04/2022 022 12:16 AM CDT COVID - 19 07/20/2022 10/05/2022 10/15/2022 12:1 6 AM CDT COVID - 19 06/09/2024 06/09/2024 06/09/2024 1:18 AM POST ADOPTION COORDINATOR Respiratory Rule-Out 08/27/2024 08/27/2024 025 12:16 AM POST ADOPTION COORDINATOR documented as of this encounter Care Teams Split Leather Mosser Relationship Specialty Start Date End Date Chris Bourgeois MD [address] [place] [address] PCP - General Internal Medicine 07/03/19 Leopoldo Rodriguez MD Consulting Physician Neurology 09/14/17 06/09/24 documented as of this encounter
--- OUTSIDE RECORDS SUMMARY | 2024-10-02 08:38 | XMS_ITS | Encounter Summary ---
Author Organization [facility] Address [address] [place] [address] Phone Care Team Providers Care Conductor/Brakeman Name Role Phone Leopoldo Rodriguez MD Unavailable [phone] Chris Bourgeois MD Primary Care Provider [phone] Encounter Details Date Type Department Care Team (Late st Contact Info) Description 08/04/2021 Lab Requisition [facility] Laboratory Services 1 [place] [id number] Sher Nuñez MD [address] [place] [address] [facility] [address] [place] [address] Social History Tobacco Use Types Packs/Day Years Used Date Smoking Tobacco: Never Smokeless Tobacco: Never Alcohol Use Standard Drinks/Week Comments Not Currently 0 (1 standard drink = 0.6 oz pur e alcohol) Sexually Active Control Partners Comments Never Sex and Gender Information Value Date Recorded Sex Assigned at Not on file Legal Sex Male 4:11 PM SCHEDULE CHECKER Gender Identity Not on file Sexual Orientation Not on file documented as of this encounter Plan of Treatment Not on file documented as of this encounter Procedures Procedure Name Priority Date/Time Associated Diagnosis Comments SARS-COV-2 BY MOLECULAR Routine 08/04/2021 8:26 AM SCHEDULE CHECKER documented in this encounter Results * SARS-COV-2 BY MOLECULAR (08/04/2021 8:26 AM SCHEDULE CHECKER) SARSCOV2 NOT DETECTED (Referen ce Range for this test is Not Detected ) [facility] THERMOFISHER FAST DX 08/06/2021 6:12 AM SCHEDULE CHECKER [facility] Comment:This test was perfor med by a RT-PCR method. Other Non-Phlebotomy Collection / Unknown 08/04/2021 8:26 AM SCHEDULE CHECKER 08/04/2021 11:00 AM SCHEDULE CHECKER Narrative [facility] - 08/06/2021 6:12 AM SCHEDULE CHECKER Authorized Fact Sheets about this test for providers and patients are available at: https://www.fda.gov/medical-devices/nfwpctrve-bthiwucedr-znmvgnj-devices/emergen cy-us e-authorizations us Sher Nuñez MD MICROBIOLOGY - GENERAL ORDERAB LES Final Result [facility] [address] [place] [address], documented in this encounter Visit Diagnoses Not on filedocumented in this encounter Additional Health Concerns Infection Onset Date Last Indicated Resolved Time COVID - 19 04/14/2021 08/11/2021 08/13/2021 9:45 AM SCHEDULE CHECKER COVID - 19 Confirmed 08/11/2021 08/11/2021 022 12:16 AM SCHEDULE CHECKER COVID - 19 09/01/2021 09/01/2021 09/21/2021 12:1 6 AM SCHEDULE CHECKER COVID - 19 09/29/2021 10/06/2021 10/26/2021 12:1 7 AM CDT COVID - 19 11/03/2021 05/04/2022 05/05/2022 12:1 8 AM CDT COVID - 19 Confirmed 05/04/2022 05/04/2022 022 12:16 AM CDT COVID - 19 07/20/2022 10/05/2022 10/15/2022 12:1 6 AM CDT COVID - 19 06/09/2024 06/09/2024 06/09/2024 1:18 AM SCHEDULE CHECKER Respiratory Rule-Out 08/27/2024 08/27/2024 025 12:16 AM SCHEDULE CHECKER documented as of this encounter Care Teams Conductor/Brakeman Relationship Specialty Start Date End Date Chris Bourgeois MD [address] [place] [address] PCP - General Internal Medicine 07/03/19 Leopoldo Rodriguez MD Consulting Physician Neurology 09/14/17 06/09/24 documented as of this encounter
--- OUTSIDE RECORDS SUMMARY | 2024-10-02 08:38 | XMS_ITS | Encounter Summary ---
Author Organization [facility] Address [address] [place] [address] Phone Care Team Providers Care Labor Relations Manager Name Role Phone Leopoldo Rodriguez MD Unavailable [phone] Chris Bourgeois MD Primary Care Provider [phone] Encounter Details Date Type Department Care Team (Late st Contact Info) Description 06/16/2021 Lab Requisition [facility] Laboratory Services 1 [place] [phone] Sher Nuñez MD [address] [place] [address] [facility] [address] [place] [address] Social History Tobacco Use Types Packs/Day Years Used Date Smoking Tobacco: Never Smokeless Tobacco: Never Alcohol Use Standard Drinks/Week Comments Not Currently 0 (1 standard drink = 0.6 oz pur e alcohol) Sexually Active Control Partners Comments Never Sex and Gender Information Value Date Recorded Sex Assigned at Not on file Legal Sex Male 4:11 PM DELIVERY AIDE Gender Identity Not on file Sexual Orientation Not on file documented as of this encounter Plan of Treatment Not on file documented as of this encounter Procedures Procedure Name Priority Date/Time Associated Diagnosis Comments SARS-COV-2 BY MOLECULAR Routine 06/16/2021 7:25 AM DELIVERY AIDE documented in this encounter Results * SARS-COV-2 BY MOLECULAR (06/16/2021 7:25 AM DELIVERY AIDE) SARSCOV2 NOT DETECTED (Referen ce Range for this test is Not Detected ) [facility] THERMOFISHER FAST DX 06/17/2021 12:07 PM DELIVERY AIDE [facility] Comment:This test was perfor med by a RT-PCR method. Other No Phlebotomy Charged / Unknown 06/16/2021 7:25 AM DELIVERY AIDE 06/16/2021 10:35 AM DELIVERY AIDE Narrative [facility] - 06/17/2021 12:07 PM DELIVERY AIDE Authorized Fact Sheets about this test for providers and patients are available at: https://www.fda.gov/medical-devices/odysuswtv-bvnwckqqcm-jndkrig-devices/emergen cy-us e-authorizations us Sher Nuñez MD MICROBIOLOGY - GENERAL ORDERAB LES Final Result [facility] [address] [place] [address], documented in this encounter Visit Diagnoses Not on filedocumented in this encounter Additional Health Concerns Infection Onset Date Last Indicated Resolved Time COVID - 19 04/14/2021 08/11/2021 08/13/2021 9:45 AM DELIVERY AIDE COVID - 19 Confirmed 08/11/2021 08/11/2021 022 12:16 AM DELIVERY AIDE COVID - 19 09/01/2021 09/01/2021 09/21/2021 12:1 6 AM DELIVERY AIDE COVID - 19 09/29/2021 10/06/2021 10/26/2021 12:1 7 AM CDT COVID - 19 11/03/2021 05/04/2022 05/05/2022 12:1 8 AM CDT COVID - 19 Confirmed 05/04/2022 05/04/2022 022 12:16 AM CDT COVID - 19 07/20/2022 10/05/2022 10/15/2022 12:1 6 AM CDT COVID - 19 06/09/2024 06/09/2024 06/09/2024 1:18 AM DELIVERY AIDE Respiratory Rule-Out 08/27/2024 08/27/2024 025 12:16 AM DELIVERY AIDE documented as of this encounter Care Teams Labor Relations Manager Relationship Specialty Start Date End Date Chris Bourgeois MD [address] [place] [address] PCP - General Internal Medicine 07/03/19 Leopoldo Rodriguez MD Consulting Physician Neurology 09/14/17 06/09/24 documented as of this encounter
--- OUTSIDE RECORDS SUMMARY | 2024-10-02 08:38 | XMS_ITS | Encounter Summary ---
Author Organization [facility] Address [address] [place] [address] Phone Care Team Providers Care Cabinet And Trim Installer Name Role Phone Leopoldo Rodriguez MD Unavailable [phone] Chris Bourgeois MD Primary Care Provider [phone] Encounter Details Date Type Department Care Team (Late st Contact Info) Description 04/28/2021 Lab Requisition [facility] Laboratory Services 1 [place] [address] Sher Nuñez MD [address] [place] [address] [address] [place] [address] Encounter for screening for COVID-19 Social History Tobacco Use Types Packs/Day Years Used Date Smoking Tobacco: Never Smokeless Tobacco: Never Alcohol Use Standard Drinks/Week Comments Not Currently 0 (1 standard drink = 0.6 oz pur e alcohol) Sexually Active Control Partners Comments Never Sex and Gender Information Value Date Recorded Sex Assigned at Not on file Legal Sex Male 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 Gender Identity Not on file Sexual Orientation Not on file documented as of this encounter Plan of Treatment Not on file documented as of this encounter Procedures Procedure Name Priority Date/Time Associated Diagnosis Comments SARS-COV-2 BY MOLECULAR Routine 04/28/2021 7:49 AM CDT Encounter for screening for COVID-19 documented in this encounter Results * SARS-COV-2 BY MOLECULAR (04/28/2021 7:49 AM CDT) SARSCOV2 NOT DETECTED (Referen ce Range for this test is Not Detected ) [facility] THERMOFISHER FAST DX 04/29/2021 11:08 AM CDT [facility] Comment:This test was perfor med by a RT-PCR method. Other Non-Phlebotomy Collection / Unknown 04/28/2021 7:49 AM CDT 04/28/2021 10:55 AM CDT Narrative [facility] - 04/29/2021 11:08 AM CDT Authorized Fact Sheets about this test for providers and patients are available at: https://www.fda.gov/medical-devices/lkbzgifrx-ngpgysqsoe-xhjruab-devices/emergen cy-us e-authorizations us Sher Nuñez MD MICROBIOLOGY - GENERAL ORDERAB LES Final Result [facility] [address] [place] [address], documented in this encounter Visit Diagnoses Diagnosis Encounter for screening for COVID-19 documented in this encounter Additional Health Concerns Infection Onset Date Last Indicated Resolved Time COVID - 19 04/14/2021 08/11/2021 08/13/2021 9:45 AM CESSPOOL CLEANER COVID - 19 Confirmed 08/11/2021 08/11/2021 022 12:16 AM CESSPOOL CLEANER COVID - 19 09/01/2021 09/01/2021 09/21/2021 12:1 6 AM CESSPOOL CLEANER COVID - 19 09/29/2021 10/06/2021 10/26/2021 12:1 7 AM CDT COVID - 19 11/03/2021 05/04/2022 05/05/2022 12:1 8 AM CDT COVID - 19 Confirmed 05/04/2022 05/04/2022 022 12:16 AM CDT COVID - 19 07/20/2022 10/05/2022 10/15/2022 12:1 6 AM CDT COVID - 19 06/09/2024 06/09/2024 06/09/2024 1:18 AM CESSPOOL CLEANER Respiratory Rule-Out 08/27/2024 08/27/2024 025 12:16 AM CESSPOOL CLEANER documented as of this encounter Care Teams Cabinet And Trim Installer Relationship Specialty Start Date End Date Chris Bourgeois MD [address] [facility] [address] [place] [address] PCP - General Internal Medicine 07/03/19 Leopoldo Rodriguez MD Consulting Physician Neurology 09/14/17 06/09/24 documented as of this encounter
--- OUTSIDE RECORDS SUMMARY | 2024-10-02 08:38 | XMS_ITS | Encounter Summary ---
Author Organization [facility] Address [address] [place] [address] Phone Care Team Providers Care Laboratory Tech Name Role Phone Leopoldo Rodriguez MD Unavailable [phone] Chris Bourgeois MD Primary Care Provider [phone] Encounter Details Date Type Department Care Team (Late st Contact Info) Description 05/05/2021 Lab Requisition [facility] Laboratory Services 1 [place] [phone] Sher Nuñez MD [address] [place] [address] [facility] [address] [place] [address] Social History Tobacco Use Types Packs/Day Years Used Date Smoking Tobacco: Never Smokeless Tobacco: Never Alcohol Use Standard Drinks/Week Comments Not Currently 0 (1 standard drink = 0.6 oz pur e alcohol) Sexually Active Control Partners Comments Never Sex and Gender Information Value Date Recorded Sex Assigned at Not on file 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 Gender Identity Not on file Sexual Orientation Not on file documented as of this encounter Plan of Treatment Not on file documented as of this encounter Procedures Procedure Name Priority Date/Time Associated Diagnosis Comments SARS-COV-2 BY MOLECULAR Routine 05/05/2021 7:41 AM CDT documented in this encounter Results * SARS-COV-2 BY MOLECULAR (05/05/2021 7:41 AM CDT) SARSCOV2 NOT DETECTED (Referen ce Range for this test is Not Detected ) [facility] THERMOFISHER FAST DX 05/06/2021 10:46 AM CDT [facility] Comment:This test was perfor med by a RT-PCR method. Other Non-Phlebotomy Collection / Unknown 05/05/2021 7:41 AM CDT 05/05/2021 10:49 AM CDT Narrative [facility] - 05/06/2021 10:46 AM CDT Authorized Fact Sheets about this test for providers and patients are available at: https://www.fda.gov/medical-devices/wkpqtknqi-ieuagxrecg-jaiaclb-devices/emergen -us e-authorizations us Sher Nuñez MD MICROBIOLOGY - GENERAL ORDERAB LES Final Result [facility] [address] [place] [address], documented in this encounter Visit Diagnoses Not on filedocumented in this encounter Additional Health Concerns Infection Onset Date Last Indicated Resolved Time COVID - 19 04/14/2021 08/11/2021 08/13/2021 9:45 AM STAYING MACHINE OPERATOR COVID - 19 Confirmed 08/11/2021 08/11/2021 022 12:16 AM STAYING MACHINE OPERATOR COVID - 19 09/01/2021 09/01/2021 09/21/2021 12:1 6 AM STAYING MACHINE OPERATOR COVID - 19 09/29/2021 10/06/2021 10/26/2021 12:1 7 AM CDT COVID - 19 11/03/2021 05/04/2022 05/05/2022 12:1 8 AM CDT COVID - 19 Confirmed 05/04/2022 05/04/2022 022 12:16 AM CDT COVID - 19 07/20/2022 10/05/2022 10/15/2022 12:1 6 AM CDT COVID - 19 06/09/2024 06/09/2024 06/09/2024 1:18 AM STAYING MACHINE OPERATOR Respiratory Rule-Out 08/27/2024 08/27/2024 025 12:16 AM STAYING MACHINE OPERATOR documented as of this encounter Care Teams Laboratory Tech Relationship Specialty Start Date End Date Chris Bourgeois MD [address] [place] [address] PCP - General Internal Medicine 07/03/19 Leopoldo Rodriguez MD Consulting Physician Neurology 09/14/17 06/09/24 documented as of this encounter
--- OUTSIDE RECORDS SUMMARY | 2024-10-02 08:38 | XMS_ITS | Encounter Summary ---
Author Organization [facility] Address [address] [place] [address] Phone Care Team Providers Care Nurse Aide Evaluator Name Role Phone Leopoldo Rodriguez MD Unavailable [phone] Chris Bourgeois MD Primary Care Provider [phone] Encounter Details Date Type Department Care Team (Late st Contact Info) Description 05/26/2021 Lab Requisition 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 Other Non-Phlebotomy Collection / Unknown 05/26/2021 7:19 AM CDT 05/26/2021 10:54 AM CDT Narrative [facility] - 05/27/2021 12:01 AM CDT Authorized Fact Sheets about this test for providers and patients are available at: https://www.fda.gov/medical-devices/xbphtuxas-swbffhcwjw-opjwlui-devices/emergen -us e-authorizations us Sher Nuñez MD MICROBIOLOGY - GENERAL ORDERAB LES Final Result [facility] [address] [place] [address], documented in this encounter Visit Diagnoses Not on filedocumented in this encounter Additional Health Concerns Infection Onset Date Last Indicated Resolved Time COVID - 19 04/14/2021 08/11/2021 08/13/2021 9:45 AM OPERATIONAL REVIEW SERGEANT COVID - 19 Confirmed 08/11/2021 08/11/2021 022 12:16 AM OPERATIONAL REVIEW SERGEANT COVID - 19 09/01/2021 09/01/2021 09/21/2021 12:1 6 AM OPERATIONAL REVIEW SERGEANT COVID - 19 09/29/2021 10/06/2021 10/26/2021 12:1 7 AM CDT COVID - 19 11/03/2021 05/04/2022 05/05/2022 12:1 8 AM CDT COVID - 19 Confirmed 05/04/2022 05/04/2022 022 12:16 AM CDT COVID - 19 07/20/2022 10/05/2022 10/15/2022 12:1 6 AM CDT COVID - 19 06/09/2024 06/09/2024 06/09/2024 1:18 AM OPERATIONAL REVIEW SERGEANT Respiratory Rule-Out 08/27/2024 08/27/2024 025 12:16 AM OPERATIONAL REVIEW SERGEANT documented as of this encounter Care Teams Nurse Aide Evaluator Relationship Specialty Start Date End Date Chris Bourgeois MD [address] [place] [address] PCP - General Internal Medicine 07/03/19 Leopoldo Rodriguez MD Consulting Physician Neurology 09/14/17 06/09/24 documented as of this encounter
--- OUTSIDE RECORDS SUMMARY | 2024-10-02 08:38 | XMS_ITS | Clinical Summary ---
Author Organization [facility] Address [address], [address] [address] Phone Care Team Providers Care Lead Quality Technician Name Role Phone Chris Bourgeois MD Primary Care Provider Allergies No known active allergies Medications ABILIFY MAINTENA 400 MG Suspension Reconstituted ERIndications:MDD with Psychosis 400 mg every 28 days. Indications: MDD with Psychosis Active amantadine (SYMMETREL) 100 MG Capsule Take 100 mg by mouth daily. Before breakfast Active levothyroxine (SYNTHROID) 112 MCG Tablet Active fluvoxaMINE (LUVOX) 100 MG Tablet Take 100 mg by mouth daily. Active carbidopa-levodop a (SINEMET) 25-100 MG TabletIndications :Parkinson's Disease Take 1 Tablet by mouth 3 times daily. Indications: Parkinson's Disease Active docusate sodium (COLACE) 100 MG Capsule Take 100 mg by mouth daily. Active Niacinamide 500 MG Tablet Controlled Release Take 1 Tab by mouth every morning and at bedtime. Active ascorbic acid (ASCORBIC ACID) 500 MG Tablet Take 500 mg by mouth every morning and at bedtime. Active traZODone (DESYREL) 50 MG Tablet Take 25 mg by mouth nightly. Active valproic acid (DEPAKENE) 250 MG/5ML SolutionIndicatio ns:OCD Take 750 mg by mouth every morning and at bedtime. Take 15 ML 2 times a day Indications: OCD Active ARIPiprazole (ABILIFY) 10 MG TabletIndications :Major Depressive Disorder Take 10 mg by mouth daily. Take one tablet by mouth 5X/weekly Monday thru Monday at 1200 noon Indications: Major Depressive Disorder Active Multiple Vitamin (DAILY KIET PO) Take 1 Tab by mouth nightly. Active valproate (DEPAKENE) 250 MG/5ML SolutionIndicatio ns:OCD Take 500 mg by mouth nightly. Indications: OCD Active dextromethorphan- guaiFENesin (ROBITUSSIN-DM) 10-100 MG/5ML Syrup Take 10 mL by mouth every 4 hours as needed. Not to exceed 6 doses in 24 hours Active acetaminophen (TYLENOL) 325 MG Tablet Take 650 mg by mouth every 4 hours as needed for Mild or more severe pain or Fever. Active Neomycin-Bacitrac in-Polymyxin (HCA TRIPLE ANTIBIOTIC OINTMENT EX) by Apply externally route every 8 hours as needed (max 3 doses daily to wounds). Active tamsulosin (FLOMAX) 0.4 MG Capsule Take 0.4 mg by mouth nightly. Active FAMOTIDINE PO Take 40 mg by mouth. Active polyethylene glycol (MIRALAX) 17 GM/SCOOP PowderIndications :Diarrhea, unspecified type Take 17 g by mouth daily. 17 g = 1 scoop. Dissolve in 4 -8 oz of water or other liquid. 225 g 3 0 Active Oxybutynin Chloride (DITROPAN PO) Take 5 mg by mouth every morning and at bedtime. Active valproic acid (DEPAKENE) 250 MG Capsule Take 500 mg by mouth nightly. Active diclofenac (VOLTAREN) 0.1 % Solution Place 1 Drop in affected eye(s) 4 times daily. Active Ascorbic Acid (VITAMIN C PO) Take by mouth. 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 07/02/2019 Encounters Date Type Department Care Team Description 08/28/[facility]24 [facility] [address] [place] [address] Chris Bourgeois MD Pure hypercholesterolemia, unspecified; Other half-way (current) drug therapy; Moderate intellectual disabilities 08/[facility]/2024 [facility] [address] [place] [address] Sher Nuñez MD Contact with and (suspected) exposure to unspecified communicable disease; Acute cough 08/27/2024 Lab Requisition [facility] Services [address] [place] [address] Sher Nuñez MD Contact with and (suspected) exposure to unspecified communicable disease; Acute cough 08/06/2024 Nursing Facility [facility] [address] [place] [address] Leopoldo Rodriguez MD Drug-induced parkinsonism (HCC) (Primary Dx); Tremor from Last 3 Months Immunizations Immunization Administration Dates Next Due Covid-19, Mrna, Lnp-s, Pf, 30 Mcg/0.3 Ml Dose (P fizer) 05/28/2021 Influenza Vaccine 05/24/2018,05/06/2017 Influenza Vaccine, Quadrivalent, PF 05/27/2020 Family History Relation Name Status Comments Father Alive Mother Alive Social History Tobacco Use Types Packs/Day Years Used Date Smoking Tobacco: Never Smokeless Tobacco: Never Tobacco Cessation:Counseling Given: Not Answered Alcohol Use Standard Drinks/Week Comments Not Currently 0 (1 standard drink = 0.6 oz pur e alcohol) Sexually Active Control Partners Comments Never Sex and Gender Information Value Date Recorded Sex Assigned at Not on file Legal Sex Male 4:11 PM MOLDER SHOULDER PAD Gender Identity Not on file Sexual Orientation Not on file Last Filed Vital Signs Vital Sign Reading Time Taken Comments Blood Pressure 116/71 08/06/2024 11:12 AM MOLDER SHOULDER PAD Pulse 114 08/06/2024 11:12 AM MOLDER SHOULDER PAD Temperature 36.7 C (98.1 F) 08/06/2024 11:12 AM MOLDER SHOULDER PAD Respiratory Rate 18 08/06/2024 11:12 AM MOLDER SHOULDER PAD Oxygen Saturation 96% 08/06/2024 11:12 AM MOLDER SHOULDER PAD Inhaled Oxygen Concentration - - Weight 84.6 kg (186 lb 9.6 oz) 08/06/2024 11:12 AM MOLDER SHOULDER PAD Height 177.8 cm (5' 10 ) 08/06/2024 11:12 AM MOLDER SHOULDER PAD Body Mass Index 26.77 08/06/2024 11:12 AM MOLDER SHOULDER PAD Plan of Treatment Health Maintenance Due Date Last Done Comments Hepatitis C Virus (HCV) Screening 1955 Colonoscopy 1999 Colorectal Cancer Screening 1999 Hepatitis B Immunization (2 of 3 - 19+ 3-dose series) 03/21/2002 02/21/2002 Cologuard 2004 Immunochemical Fecal Occult Blood 2004 Pneumococcal Immunization (50+ years) (2 of 2 - PCV) 10/19/2007 10/18/2006 Zoster Immunization (2 of 2) 04/02/2020 02/06/2020 Influenza Immunization (#1) 03/24/202410/2019, 05/22/2019, 05/24/2018, Additional history exists SARS-COV-2 Immunization ( season) 2024 05/28/2021, 09/25/2020, 09/03/2020 Respiratory Syncytial Virus (RSV) Immunization (Adult) (1 - 1-dose 75+ series) 2029 Pneumococcal Immunization Combined Discontinued 10/18/2006 DTaP/Tdap/Td Immunization Discontinued 02/06/2020, TdaP Immunization Completed 02/06/2020, 10/19/2006 PSA Discussion Discontinued 05/13/2020 Meningococcal Immunization (ACWY) Aged Out No longer eligible based on patient's age to complete this topic Rotavirus Immunization Aged Out No lo nger eligible based on patient's age to complete this topic Medical Devices Implanted Type Area Ship Wirer Device Identifier Shelf Expiration Date Model / Serial / Lot Shell Actb 60mm Hip 7 Screw Hole Biofoam Dynasty - [id number] Implanted:Qty: 1 on 08/13/2020 by Yohan Camargo MD at [facility] IMPLANT Left: Hip [employer] 07/09/2027 [id number] / [id number] / [id number] Screw Bone 6.5mm 30mm Dynasty Lineage Biofoam Actb - [id number] Implanted:Qty: 1 on 08/13/2020 by Yohan Camargo MD at [facility] IMPLANT Left: Hip [employer] 09/20/2027 [id number] / [id number] / [id number] Screw Bone 6.5mm 25mm Dynasty Lineage Biofoam Actb - [id number] Implanted:Qty: 2 on 08/13/2020 by Yohan Camargo MD at [facility] IMPLANT Left: Hip [employer] 10/01/2027 [id number] / [id number] / [id number] Screw Bone 6.5mm 20mm Dynasty Lineage Biofoam Actb - [id number] Implanted:Qty: 1 on 08/13/2020 by Yohan Camargo MD at [facility] IMPLANT Left: Hip [employer] 01/13/2026 [id number] / [id number] / [id number] Liner Actb Dynasty A-Class 15d 42mm Poly Biofoam Hip - [id number] Implanted:Qty: 1 on 08/13/2020 by Yohan Camargo MD at [facility] IMPLANT Left: Hip [employer] 11/21/2025 [id number] / [id number] / [id number] Sleeve Centering Conserve Total Neck - [id number] Implanted:Qty: 1 on 08/13/2020 by Yohan Camargo MD at [facility] IMPLANT Left: Hip [employer] 10/01/2027 [id number] / [id number] / [id number] Head Fem Big 42mm Hip 3 Screw Hole Ceramic Dynasty Conserve - [id number] Implanted:Qty: 1 on 08/13/2020 by Yohan Camargo MD at [facility] IMPLANT Left: Hip [employer] 12/13/2026 [id number] / [id number] / [id number] [employer] Profemur Renaissance Classic Femoral Stem W/Short Neck Implanted:Qty: 1 on 08/13/2020 by Yohan Camargo MD at [facility] Left: Hip [employer] 01/20/2022 [id number] / [id number] / [id number] Procedures Procedure Name Priority Date/Time Associated Diagnosis Comments CBC WITH AUTO DIFFERENTIAL Routine 08/28/2024 6:40 AM MOLDER SHOULDER PAD Pure hypercholesterolemia , unspecified Other intermodal owner operator truck driver (current) drug therapy Moderate intellectual disabilities COMPLETE BLOOD COUNT (CBC) WITH DIFF Routine 08/28/2024 6:40 AM MOLDER SHOULDER PAD Pure hypercholesterolemia , unspecified Other half-way (current) drug therapy Moderate intellectual disabilities VALPROIC ACID (DEPAKENE) Routine 08/28/2024 6:40 AM MOLDER SHOULDER PAD Pure hypercholesterolemia , unspecified Other intermodal owner operator truck driver (current) drug therapy Moderate intellectual disabilities LIPID PANEL Routine 08/28/2024 6:40 AM MOLDER SHOULDER PAD Pure hypercholesterolemia , unspecified Other intermodal owner operator truck driver (current) drug therapy Moderate intellectual disabilities RSV,SARS-COV-2,INFLUE NZA A&B BY PCR Routine 08/27/2024 6:25 AM MOLDER SHOULDER PAD Contact with and (suspected) exposure to unspecified communicable disease Acute cough PSA SCREEN Routine 05/13/2020 Prostate cancer screening from Last 3 Months or Most Recently Relevant to Health Maintenance Results * (ABNORMAL) CBC WITH AUTO DIFFERENTIAL (08/28/2024 6:40 AM MOLDER SHOULDER PAD) WBC 5.65 4.00 - 12.00 10(3)/mcL 08/28/2024 8:00 AM [facility] RBC 4.40 4.40 - 5.80 10(6)/mcL 08/28/2024 8:00 AM [facility] HEMOGLOBIN (HGB) 13.9 13.0 - 16.5 g/dL 08/28/2024 8:00 AM [facility] HEMATOCRIT (HCT) 42.7 38.0 - 50.0 % 08/28/2024 8:00 AM [facility] MCV 97.0(H) 82.0 - 96.0 fL 08/28/2024 8:00 AM [facility] MCH 31.6 26.0 - 32.0 pg 08/28/2024 8:00 AM MOLDER SHOULDER PAD [facility] MCHC 32.6 31.0 - 36.0 g/dL 08/28/2024 8:00 AM [facility] PLATELET COUNT 224 140 - 440 10(3)/[facility] 08/28/2024 8:00 AM [facility] RDW 14.0 11.8 - 15.5 % 08/28/2024 8:00 AM [facility] MPV 9.6 8.0 - 12.6 fL 08/28/2024 8:00 AM [facility] NEUTROPHILS 59.8 40.0 - 68.0 % 08/28/2024 8:00 AM [facility] LYMPHOCYTES 22.5 19.0 - 49.0 % 08/28/2024 8:00 AM [facility] MONOCYTES 14.9(H) 3.0 - 13.0 % 08/28/2024 8:00 AM [facility] EOSINOPHILS 2.3 0.0 - 8.0 % 08/28/2024 8:00 AM [facility] BASOPHILS 0.5 0.0 - 1.0 % 08/28/2024 8:00 AM [facility] ABSOLUTE NEUTROPHILS 3.38 1.40 - 5.30 10(3)/[facility] 08/28/2024 8:00 AM [facility] ABSOLUTE LYMPHOCYTES 1.27 0.90 - 3.30 10(3)/[facility] 08/28/2024 8:00 AM [facility] ABSOLUTE MONOCYTES 0.84 0.10 - 0.90 10(3)/[facility] 08/28/2024 8:00 AM [facility] ABSOLUTE EOSINOPHIL 0.13 0.00 - 0.50 10(3)/[facility] 08/28/2024 8:00 AM [facility] ABSOLUTE BASOPHILS 0.03 0.00 - 0.10 10(3)/[facility] 08/28/2024 8:00 AM [facility] NRBC PER 100 WBC 0 08/28/19 8:00 AM [facility] Blood Venipuncture / Unknown 08/28/2024 6:40 AM MOLDER SHOULDER PAD 08/28/2024 7:53 AM MOLDER SHOULDER PAD us Chris Bourgeois MD HEMATOLOGY ORDERABLES Final Res ult Performing Organization Address City/[facility]/ZIP Co de Phone Number [facility] [address] [place] [address] * (ABNORMAL) VALPROIC ACID (DEPAKENE) (08/28/2024 6:40 AM MOLDER SHOULDER PAD) VALPROIC ACID TOTAL 42(L) 50 - 100 mcg/mL 08/28/2024 8:57 AM MOLDER SHOULDER PAD [facility] Blood Venipuncture / Unknown 08/28/2024 6:40 AM MOLDER SHOULDER PAD 08/28/2024 7:53 AM MOLDER SHOULDER PAD us Chris Bourgeois MD CHEMISTRY ORDERABLES Final Resu lt Performing Organization Address City/[facility]/ZIP Co de Phone Number [facility] [address] [place] [address] * LIPID PANEL (08/28/2024 6:40 AM MOLDER SHOULDER PAD) CHOLESTEROL 165 <200 mg/dL 08/28/2024 8:57 AM MOL[employer] SHOULDER PAD [facility] TRIGLYCERIDES 111 <150 mg/dL 08/28/2024 8:57 AM M[employer] SHOULD[employer] PAD [facility] HDL CHOLESTEROL 48 >40 mg/dL 8:57 AM [employer] SH[employer] PAD [facility] LDL 95 <130 mg/dL 08/28/2024 8:57 AM M[employer] SHOULDER PAD [facility] VLDL 22 10 - 50 mg/dL 08/28/2024 8:57 AM MOLDER SHOULDER PAD [facility] CHOL/HDL RATIO 3.4 0.0 - 4.4 08/28/2024 8:57 AM MOLDER SHOULDER PAD [facility] NON-HDL CHOLESTEROL 117 <130 mg/dL 08/28/2024 8:57 AM MOLDER SHOULDER PAD [facility] Blood Venipuncture / Unknown 08/28/2024 6:40 AM MOLDER SHOULDER PAD 08/28/2024 7:53 AM MOLDER SHOULDER PAD Chris Bourgeois MD CHEMISTRY ORDERABLES Final Resu lt Performing Organization Address City/[facility]/ZIP Co de Phone Number [facility] [address] [place] [address] * RSV,SARS-COV-2,INFLUENZA A&B BY PCR (08/27/2024 6:25 AM MOLDER SHOULDER PAD) FLU A Negative Negative, Error 08/27/2024 11:06 AM MOLDER SHOULDER PAD [facility] FLU B Negative Negative 08/27/2024 11:06 AM MOLDER SHOULDER PAD [facility] RESP SYNC VIRUS Negative Negative 11:06 AM MOLDER SHOULDER PAD [facility] SARSCOV2 NOT DETECTED (Reference Range for this test is Not Detected) 08/27/2024 11:06 AM MOLDER SHOULDER PAD [facility] Comment:This test was perfor med by a Reverse Mri Ct Tech PCR Method. Swab Non-Phlebotomy Collection / Unknown 08/27/2024 6:25 AM MOLDER SHOULDER PAD 08/27/2024 7:59 AM MOLDER SHOULDER PAD Sher Nuñez MD MICROBIOLOGY - GENERAL ORDERAB LES Final Result Performing Organization Address [facility] Co de Phone Number [facility] [address] [place] [address] * PSA SCREEN (05/13/2020) PSA (PROSTATE SPECIFIC ANTIGEN) 1.18 ng/mL Blood specimen (specimen) 05/13/2020 Josue Lira MD CHEMISTRY ORDERABLES Edited Result - Final from Last 3 Months or Most Recently Relevant to Health Maintenance Insurance MEDICAID [place] MEDICARE C [employer] Advance Directives Documents on File Type Date Recorded Patient [place] [employer] [employer] Expl anation Living Will 08/19/2020 9:35 AM [id number] Care Teams Lead Quality Technician Relationship Specialty Start Date End Date Chris Bourgeois MD [address] [facility] [address] [place] [address] PCP - General Internal Medicine 07/03/19
--- OUTSIDE RECORDS SUMMARY | 2024-10-02 08:38 | XMS_ITS | Encounter Summary ---
Author Organization [facility] Address [address] [place] [address] Phone Care Team Providers Care Floor Person Name Role Phone Leopoldo Rodriguez MD Unavailable [phone] Chris Bourgeois MD Primary Care Provider [phone] Encounter Details Date Type Department Care Team (Latest Contact Info) Description 05/29/2024 Lab Requisition [facility] Laboratory Services [address] [place] [address] Chris Bourgeois MD [address] [address] Other detention (current) drug therapy; Moderate intellectual disabilities; Pure hypercholesterolemia, unspecified; Hormone replacement therapy; Encounter for general adult medical examination without abnormal findings; buttermilk drier operator (current) use of anticoagulants Social History Tobacco Use Types Packs/Day Years Used Date Smoking Tobacco: Never Smokeless Tobacco: Never Alcohol Use Standard Drinks/Week Comments Not Currently 0 (1 standard drink = 0.6 oz pur e alcohol) Sexually Active Control Partners Comments Never Sex and Gender Information Value Date Recorded Sex Assigned at Not on file Legal Sex Male 4:11 PM CILNICAL SCIENTIST Gender Identity Not on file Sexual Orientation Not on file documented as of this encounter Plan of Treatment Not on file documented as of this encounter Procedures Procedure Name Priority Date/Time Associated Diagnosis Comments CBC WITH AUTO DIFFERENTIAL Routine 05/29/2024 7:28 AM CILNICAL SCIENTIST Other detention (current) drug therapy Moderate intellectual disabilities Pure hypercholesterolemia, unspecified Hormone replacement therapy Encounter for general adult medical examination without abnormal findings buttermilk drier operator (current) use of anticoagulants VALPROIC ACID (DEPAKENE) Routine 05/29/2024 7:28 AM CILNICAL SCIENTIST Other detention (current) drug therapy Moderate intellectual disabilities Pure hypercholesterolemia, unspecified Hormone replacement therapy Encounter for general adult medical examination without abnormal findings [facility] (current) use of anticoagulants THYROID STIMULATING HORMONE (TSH) Routine 05/29/2024 7:28 AM CILNICAL SCIENTIST Other detention (current) drug therapy Moderate intellectual disabilities Pure hypercholesterolemia, unspecified Hormone replacement therapy Encounter for general adult medical examination without abnormal findings buttermilk drier operator (current) use of anticoagulants LIPID PANEL Routine 05/29/2024 7:28 AM CILNICAL SCIENTIST Other termite helper (current) drug therapy Moderate intellectual disabilities Pure hypercholesterolemia, unspecified COMPLETE BLOOD COUNT (CBC) WITH DIFF Routine 05/29/2024 7:28 AM CILNICAL SCIENTIST Other termite helper (current) drug therapy Moderate intellectual disabilities Pure hypercholesterolemia, unspecified Hormone replacement therapy Encounter for general adult medical examination without abnormal findings buttermilk drier operator (current) use of anticoagulants documented in this encounter Results * (ABNORMAL) CBC WITH AUTO DIFFERENTIAL (05/29/2024 7:28 AM CILNICAL SCIENTIST) Pathologist [facility] WBC 5.81 4.00 - 12.00 10(3)/mcL 05/29/2024 9:34 AM CILNICAL SCIENTIST [facility] RBC 4.66 4.40 - 5.80 10(6)/mcL 05/29/2024 9:34 AM CILNICAL SCIENTIST [facility] HEMOGLOBIN (HGB) 14.8 13.0 - 16.5 g/dL 05/29/2024 9:34 AM CILNICAL SCIENTIST [facility] HEMATOCRIT (HCT) 44.9 38.0 - 50.0 % 05/29/2024 9:34 AM CILNICAL SCIENTIST [facility] MCV 96.4(H) 82.0 - 96.0 fL 05/29/2024 9:34 AM CILNICAL SCIENTIST [facility] MCH 31.8 26.0 - 32.0 pg 05/29/2024 9:34 AM CILNICAL SCIENTIST [facility] MCHC 33.0 31.0 - 36.0 g/dL 05/29/2024 9:34 AM [facility] PLATELET COUNT 253 140 - 440 10(3)/[facility] 05/29/2024 9:34 AM [facility] RDW 13.5 11.8 - 15.5 % 05/29/2024 9:34 AM [facility] MPV 9.7 8.0 - 12.6 fL 05/29/2024 9:34 AM [facility] NEUTROPHILS 55.5 40.0 - 68.0 % 05/29/2024 9:34 AM [facility] LYMPHOCYTES 33.9 19.0 - 49.0 % 05/29/2024 9:34 AM [facility] MONOCYTES 8.8 3.0 - 13.0 % 05/29/2024 9:34 AM [facility] EOSINOPHILS 1.5 0.0 - 8.0 % 05/29/2024 9:34 AM [facility] BASOPHILS 0.3 0.0 - 1.0 % 05/29/2024 9:34 AM [facility] ABSOLUTE NEUTROPHILS 3.22 1.40 - 5.30 10(3)/[facility] 05/29/2024 9:34 AM [facility] ABSOLUTE LYMPHOCYTES 1.97 0.90 - 3.30 10(3)/[facility] 05/29/2024 9:34 AM [facility] ABSOLUTE MONOCYTES 0.51 0.10 - 0.90 10(3)/[facility] 05/29/2024 9:34 AM [facility] ABSOLUTE EOSINOPHIL 0.09 0.00 - 0.50 10(3)/[facility] 05/29/2024 9:34 AM [facility] ABSOLUTE BASOPHILS 0.02 0.00 - 0.10 10(3)/[facility] 05/29/2024 9:34 AM [facility] NRBC PER 100 WBC 0 05/29/20 9:34 AM [facility] Blood Venipuncture / Unknown 05/29/2024 7:28 AM CILNICAL SCIENTIST 05/29/2024 9:08 AM CILNICAL SCIENTIST us Chris Bourgeois MD HEMATOLOGY ORDERABLES Final Res ult Performing Organization Address City/[facility]/ZIP Co de Phone Number [facility] [address] [place] [address] * (ABNORMAL) THYROID STIMULATING HORMONE (TSH) (05/29/2024 7:28 AM CILNICAL SCIENTIST) TSH 7.297(H) 0.300 - 5.000 mIU/L 05/29/2024 10:13 AM CILNICAL SCIENTIST [facility] Blood Venipuncture / Unknown 05/29/2024 7:28 AM CILNICAL SCIENTIST 05/29/2024 9:08 AM CILNICAL SCIENTIST us Chris Bourgeois MD CHEMISTRY ORDERABLES Final Resu lt Performing Organization Address City/[facility]/ZIP Co de Phone Number [facility] [address] [place] [address] * VALPROIC ACID (DEPAKENE) (05/29/2024 7:28 AM CILNICAL SCIENTIST) Pathologist [facility] VALPROIC ACID TOTAL 76 50 - 100 mcg/mL 05/29/2024 9:55 AM CILNICAL SCIENTIST [facility] Blood Venipuncture / Unknown 05/29/2024 7:28 AM CILNICAL SCIENTIST 05/29/2024 9:08 AM CILNICAL SCIENTIST us Chris Bourgeois MD CHEMISTRY ORDERABLES Final Resu lt [facility] [address] [place] [address] * (ABNORMAL) LIPID PANEL (05/29/2024 7:28 AM CILNICAL SCIENTIST) Pathologist [facility] CHOLESTEROL 175 <200 mg/dL 05/29/2024 9:55 AM CILNICAL SCIENTIST [facility] TRIGLYCERIDES 152(H) <150 mg/dL 05/29/2024 9:55 AM CILNICAL SCIENTIST [facility] HDL CHOLESTEROL 57 >40 mg/dL 9:55 AM CILNICAL SCIENTIST [facility] LDL 88 <130 mg/dL 05/29/2024 9:55 AM CILNICAL SCIENTIST [facility] VLDL 30 10 - 50 mg/dL 05/29/2024 9:55 AM CILNICAL SCIENTIST [facility] CHOL/HDL RATIO 3.1 0.0 - 4.4 05/29/2024 9:55 AM CILNICAL SCIENTIST [facility] NON-HDL CHOLESTEROL 118 <130 mg/dL 05/29/2024 9:55 AM CILNICAL SCIENTIST [facility] Blood Venipuncture / Unknown 05/29/2024 7:28 AM CILNICAL SCIENTIST 05/29/2024 9:08 AM CILNICAL SCIENTIST us Chris Bourgeois MD CHEMISTRY ORDERABLES Final Resu lt [facility] [address] [place] [address] documented in this encounter Visit Diagnoses Diagnosis Other detention (current) drug therapy Moderate intellectual disabilities Pure hypercholesterolemia, unspecified Hormone replacement therapy Encounter for general adult medical examination without abnormal findings Routine general medical examination at a health care facility [facility] (current) use of anticoagulants Long-term (current) use of anticoagulants documented in this encounter Additional Health Concerns Infection Onset Date Last Indicated Resolved Time COVID - 19 06/09/2024 06/09/2024 06/09/2024 1:18 AM CILNICAL SCIENTIST Respiratory Rule-Out 08/27/2024 08/27/2024 025 12:16 AM CILNICAL SCIENTIST documented as of this encounter Care Teams Floor Person Relationship Specialty Start Date End Date Chris Bourgeois MD [address] [facility] [address] [place] [address] PCP - General Internal Medicine 07/03/19 Leopoldo Rodriguez MD Consulting Physician Neurology 09/14/17 06/09/24 documented as of this encounter
--- OUTSIDE RECORDS SUMMARY | 2024-10-02 08:38 | XMS_ITS | Encounter Summary ---
Author Organization [facility] Address [address] [place] [address] Phone Care Team Providers Care Drop Hammer Setter Up Name Role Phone Leopoldo Rodriguez MD Unavailable [phone] Chris Bourgeois MD Primary Care Provider [phone] Encounter Details Date Type Department Care Team (Late st Contact Info) Description 08/18/2022 Lab Requisition [facility] Laboratory Services 1 [place] [address] Sher Nuñez MD [address] [place] [address] [facility] [address] [place] [address] Encounter for screening for COVID-19 Social History Tobacco Use Types Packs/Day Years Used Date Smoking Tobacco: Never Smokeless Tobacco: Never Alcohol Use Standard Drinks/Week Comments Not Currently 0 (1 standard drink = 0.6 oz pur e alcohol) Sexually Active Control Partners Comments Never Sex and Gender Information Value Date Recorded Sex Assigned at Not on file Legal Sex Male 4:11 PM MUD TEMPERER Gender Identity Not on file Sexual Orientation Not on file documented as of this encounter Plan of Treatment Not on file documented as of this encounter Procedures Procedure Name Priority Date/Time Associated Diagnosis Comments SARS-COV-2 BY MOLECULAR Routine 08/18/2022 7:50 AM MUD TEMPERER Encounter for screening for COVID-19 documented in this encounter Results * SARS-COV-2 BY MOLECULAR (08/18/2022 7:50 AM MUD TEMPERER) SARSCOV2 NOT DETECTED (Referen ce Range for this test is Not Detected ) [facility] THERMOFISHER FAST DX 08/18/2022 5:12 PM MUD TEMPERER [facility] Comment:This test was perfor med by a RT-PCR method. Other Non-Phlebotomy Collection / Unknown 08/18/2022 7:50 AM MUD TEMPERER 08/18/2022 9:57 AM MUD TEMPERER Narrative [facility] - 08/18/2022 5:12 PM MUD TEMPERER Authorized Fact Sheets about this test for providers and patients are available at: https://www.fda.gov/medical-devices/gpuhckqjb-bllmnoaqqx-cncotgu-devices/emergen cy-us e-authorizations us Sher Nuñez MD MICROBIOLOGY - GENERAL ORDERAB LES Final Result [facility] [address] [place] [address], documented in this encounter Visit Diagnoses Diagnosis Encounter for screening for COVID-19 documented in this encounter Additional Health Concerns Infection Onset Date Last Indicated Resolved Time COVID - 19 07/20/2022 10/05/2022 10/15/2022 12:1 6 AM CDT COVID - 19 06/09/2024 06/09/2024 06/09/2024 1:18 AM MUD TEMPERER Respiratory Rule-Out 08/27/2024 08/27/2024 025 12:16 AM MUD TEMPERER documented as of this encounter Care Teams Drop Hammer Setter Up Relationship Specialty Start Date End Date Chris Bourgeois MD [address] [facility] [address] [place] [address] PCP - General Internal Medicine 07/03/19 Leopoldo Rodriguez MD Consulting Physician Neurology 09/14/17 06/09/24 documented as of this encounter
--- OUTSIDE RECORDS SUMMARY | 2024-10-02 08:38 | XMS_ITS | Encounter Summary ---
Author Organization [facility] Address [address] [place] [address] Phone Care Team Providers Care Food Server Name Role Phone Leopoldo Rodriguez MD Unavailable Chris Bourgeois MD Primary Care Provider [phone] Encounter Details Date Type Department Care Team (Late st Contact Info) Description 08/24/2022 Lab Requisition [facility] Laboratory Services 1 [place] [address] Sher Nuñez MD [address] [place] [address] [address] [place] [address] Encounter for screening for COVID-19 Social History Tobacco Use Types Packs/Day Years Used Date Smoking Tobacco: Never Smokeless Tobacco: Never Alcohol Use Standard Drinks/Week Comments Not Currently 0 (1 standard drink = 0.6 oz pur e alcohol) Sexually Active Control Partners Comments Never Sex and Gender Information Value Date Recorded Sex Assigned at Not on file Legal Sex Male 4:11 PM NATIONAL BUSINESS DIRECTOR Gender Identity Not on file Sexual Orientation Not on file documented as of this encounter Plan of Treatment Not on file documented as of this encounter Procedures Procedure Name Priority Date/Time Associated Diagnosis Comments SARS-COV-2 BY MOLECULAR Routine 08/24/2022 7:24 AM NATIONAL BUSINESS DIRECTOR Encounter for screening for COVID-19 documented in this encounter Results * SARS-COV-2 BY MOLECULAR (08/24/2022 7:24 AM NATIONAL BUSINESS DIRECTOR) SARSCOV2 NOT DETECTED (Referen ce Range for this test is Not Detected ) [facility] THERMOFISHER FAST DX 08/24/2022 9:47 PM NATIONAL BUSINESS DIRECTOR [facility] Comment:This test was perfor med by a RT-PCR method. Other Non-Phlebotomy Collection / Unknown 08/24/2022 7:24 AM NATIONAL BUSINESS DIRECTOR 08/24/2022 10:26 AM NATIONAL BUSINESS DIRECTOR Narrative [facility] - 08/24/2022 9:47 PM NATIONAL BUSINESS DIRECTOR Authorized Fact Sheets about this test for providers and patients are available at: https://www.fda.gov/medical-devices/nyffvccfu-qxieszebng-ipqrcxv-devices/emergen cy-us e-authorizations us Sher Nuñez MD MICROBIOLOGY - GENERAL ORDERAB LES Final Result [facility] [address] [place] [address], documented in this encounter Visit Diagnoses Diagnosis Encounter for screening for COVID-19 documented in this encounter Additional Health Concerns Infection Onset Date Last Indicated Resolved Time COVID - 19 07/20/2022 10/05/2022 10/15/2022 12:1 6 AM CDT COVID - 19 06/09/2024 06/09/2024 06/09/2024 1:18 AM NATIONAL BUSINESS DIRECTOR Respiratory Rule-Out 08/27/2024 08/27/2024 025 12:16 AM NATIONAL BUSINESS DIRECTOR documented as of this encounter Care Teams Food Server Relationship Specialty Start Date End Date Chris Bourgeois MD [address] [facility] [address] [place] [address] PCP - General Internal Medicine 07/03/19 Leopoldo Rodriguez MD Consulting Physician Neurology 09/14/17 06/09/24 documented as of this encounter
--- OUTSIDE RECORDS SUMMARY | 2024-10-02 08:38 | XMS_ITS | Encounter Summary ---
Author Organization [facility] Address [address] [place] [address] Phone Care Team Providers Care Photo Retoucher Name Role Phone Leopoldo Rodriguez MD Unavailable [phone] Chris Bourgeois MD Primary Care Provider [phone] Encounter Details Date Type Department Care Team (Late st Contact Info) Description 05/04/2022 Lab Requisition [facility] Laboratory Services 1 [place] [address] Sher Nuñez MD [address] [place] [address] [address] [place] [address] Encounter for screening for COVID-19 Social History Tobacco Use Types Packs/Day Years Used Date Smoking Tobacco: Never Smokeless Tobacco: Never Alcohol Use Standard Drinks/Week Comments Not Currently 0 (1 standard drink = 0.6 oz pur e alcohol) Sexually Active Control Partners Comments Never Sex and Gender Information Value Date Recorded Sex Assigned at Not on file Legal Sex Male 4:11 PM PLASTIC PROCESS TECHNICIAN Gender Identity Not on file Sexual Orientation Not on file COVID-19 Exposure Response Date Recorded In the last 10 days, have yo u been in contact with someone who was confirmed or suspected to have Coronavirus/COVID-19? No / Unsure 04/05/2022 3:26 PM CDT documented as of this encounter Plan of Treatment Not on file documented as of this encounter Procedures Procedure Name Priority Date/Time Associated Diagnosis Comments SARS-COV-2 BY MOLECULAR Routine 05/04/2022 7:30 AM CDT Encounter for screening for COVID-19 documented in this encounter Results * (ABNORMAL) SARS-COV-2 BY MOLECULAR (05/04/2022 7:30 AM CDT) SARSCOV2 DETECTED( A) (Referenc e Range for this test is Not Detected) [facility] THERMOFISHER FAST DX 05/05/2022 12:18 AM CDT [facility] Comment:This test was perfor med by a RT-PCR method. Other Non-Phlebotomy Collection / Unknown 05/04/2022 7:30 AM CDT 05/04/2022 11:43 AM CDT Narrative [facility] - 05/05/2022 12:18 AM CDT Authorized Fact Sheets about this test for providers and patients are available at: https://www.fda.gov/medical-devices/nvprgarbm-asthapmycr-hdilcnb-devices/emergen cy-us e-authorizations us Sher Nuñez MD MICROBIOLOGY - GENERAL ORDERAB LES Final Result Performing Organization Address City/State/[facility] Co de Phone Number [facility] [address] [place] [address], documented in this encounter Visit Diagnoses Diagnosis Encounter for screening for COVID-19 documented in this encounter Additional Health Concerns Infection Onset Date Last Indicated Resolved Time COVID - 19 11/03/2021 05/04/2022 05/05/2022 12:1 8 AM CDT COVID - 19 Confirmed 05/04/2022 05/04/2022 022 12:16 AM CDT COVID - 19 07/20/2022 10/05/2022 10/15/2022 12:1 6 AM CDT COVID - 19 06/09/2024 06/09/2024 06/09/2024 1:18 AM PLASTIC PROCESS TECHNICIAN Respiratory Rule-Out 08/27/2024 08/27/2024 025 12:16 AM PLASTIC PROCESS TECHNICIAN documented as of this encounter Care Teams Photo Retoucher Relationship Specialty Start Date End Date Chris Bourgeois MD [address] [place] [address] PCP - General Internal Medicine 07/03/19 Leopoldo Rodriguez MD Consulting Physician Neurology 09/14/17 06/09/24 documented as of this encounter
--- OUTSIDE RECORDS SUMMARY | 2024-10-02 08:38 | XMS_ITS | Encounter Summary ---
Author Organization [facility] Address [address] [place] [address] Phone Care Team Providers Care Contact Person Name Role Phone Leopoldo Rodriguez MD Unavailable Chris Bourgeois MD Primary Care Provider [phone] Encounter Details Date Type Department Care Team (Late st Contact Info) Description 10/05/2022 Lab Requisition [facility] Laboratory Services 1 [place] [address] Sher Nuñez MD [address] [place] [address] [facility] [address] [place] [address] Encounter for screening for COVID-19 Social History Tobacco Use Types Packs/Day Years Used Date Smoking Tobacco: Never Smokeless Tobacco: Never Alcohol Use Standard Drinks/Week Comments Not Currently 0 (1 standard drink = 0.6 oz pur e alcohol) Sexually Active Control Partners Comments Never Sex and Gender Information Value Date Recorded Sex Assigned at Not on file Legal Sex Male 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 MECHANIC Gender Identity Not on file Sexual Orientation Not on file documented as of this encounter Plan of Treatment Not on file documented as of this encounter Procedures Procedure Name Priority Date/Time Associated Diagnosis Comments SARS-COV-2 BY MOLECULAR Routine 10/05/2022 7:35 AM CDT Encounter for screening for COVID-19 documented in this encounter Results * SARS-COV-2 BY MOLECULAR (10/05/2022 7:35 AM CDT) SARSCOV2 NOT DETECTED (Referen ce Range for this test is Not Detected ) [facility] THERMOFISHER FAST DX 10/05/2022 5:01 PM CDT [facility] Comment:This test was perfor med by a RT-PCR method. Other Non-Phlebotomy Collection / Unknown 10/05/2022 7:35 AM CDT 10/05/2022 9:48 AM CDT Narrative [facility] - 10/05/2022 5:01 PM CDT Authorized Fact Sheets about this test for providers and patients are available at: https://www.fda.gov/medical-devices/mkmbddjfw-oddrzuuasy-achfixi-devices/emergen cy-us e-authorizations us Sher Nuñez MD MICROBIOLOGY - GENERAL ORDERAB LES Final Result [facility] [address] [place] [address], documented in this encounter Visit Diagnoses Diagnosis Encounter for screening for COVID-19 documented in this encounter Additional Health Concerns Infection Onset Date Last Indicated Resolved Time COVID - 19 07/20/2022 10/05/2022 10/15/2022 12:1 6 AM CDT COVID - 19 06/09/2024 06/09/2024 06/09/2024 1:18 AM SWITCHBOARD MECHANIC Respiratory Rule-Out 08/27/2024 08/27/2024 025 12:16 AM SWITCHBOARD MECHANIC documented as of this encounter Care Teams Contact Person Relationship Specialty Start Date End Date Chris Bourgeois MD [address] [facility] [address] [place] [address] PCP - General Internal Medicine 07/03/19 Leopoldo Rodriguez MD Consulting Physician Neurology 09/14/17 06/09/24 documented as of this encounter
--- OUTSIDE RECORDS SUMMARY | 2024-10-02 08:38 | XMS_ITS | Encounter Summary ---
Author Organization [facility] Address [address] [place] [address] Phone Care Team Providers Care Installers Mechanical Name Role Phone Leopoldo Rodriguez MD Unavailable [phone] Chris Bourgeois MD Primary Care Provider [phone] Encounter Details Date Type Department Care Team (Late st Contact Info) Description 05/12/2021 Lab Requisition [facility] Laboratory Services 1 [place] [address] Sher Nuñez MD [address] [place] [address] [address] [place] [address] Encounter for screening for COVID-19 Social History Tobacco Use Types Packs/Day Years Used Date Smoking Tobacco: Never Smokeless Tobacco: Never Alcohol Use Standard Drinks/Week Comments Not Currently 0 (1 standard drink = 0.6 oz pur e alcohol) Sexually Active Control Partners Comments Never Sex and Gender Information Value Date Recorded Sex Assigned at Not on file Legal Sex Male 4:11 PM WAREHOUSE MATERIAL HANDLER Gender Identity Not on file Sexual Orientation Not on file documented as of this encounter Plan of Treatment Not on file documented as of this encounter Procedures Procedure Name Priority Date/Time Associated Diagnosis Comments SARS-COV-2 BY MOLECULAR Routine 05/12/2021 7:24 AM CDT Encounter for screening for COVID-19 documented in this encounter Results * SARS-COV-2 BY MOLECULAR (05/12/2021 7:24 AM CDT) SARSCOV2 NOT DETECTED (Referen ce Range for this test is Not Detected ) [facility] THERMOFISHER FAST DX 05/12/2021 5:44 PM CDT [facility] Comment:This test was perfor med by a RT-PCR method. Other Non-Phlebotomy Collection / Unknown 05/12/2021 7:24 AM CDT 05/12/2021 10:49 AM CDT Narrative [facility] - 05/12/2021 5:44 PM CDT Authorized Fact Sheets about this test for providers and patients are available at: https://www.fda.gov/medical-devices/bnnmdylbr-iaxbnnoyid-yjoqudt-devices/emergen cy-us e-authorizations us Sher Nuñez MD MICROBIOLOGY - GENERAL ORDERAB LES Final Result [facility] [address] [place] [address], documented in this encounter Visit Diagnoses Diagnosis Encounter for screening for COVID-19 documented in this encounter Additional Health Concerns Infection Onset Date Last Indicated Resolved Time COVID - 19 04/14/2021 08/11/2021 08/13/2021 9:45 AM WAREHOUSE MATERIAL HANDLER COVID - 19 Confirmed 08/11/2021 08/11/2021 022 12:16 AM WAREHOUSE MATERIAL HANDLER COVID - 19 09/01/2021 09/01/2021 09/21/2021 12:1 6 AM WAREHOUSE MATERIAL HANDLER COVID - 19 09/29/2021 10/06/2021 10/26/2021 12:1 7 AM CDT COVID - 19 11/03/2021 05/04/2022 05/05/2022 12:1 8 AM CDT COVID - 19 Confirmed 05/04/2022 05/04/2022 022 12:16 AM CDT COVID - 19 07/20/2022 10/05/2022 10/15/2022 12:1 6 AM CDT COVID - 19 06/09/2024 06/09/2024 06/09/2024 1:18 AM WAREHOUSE MATERIAL HANDLER Respiratory Rule-Out 08/27/2024 08/27/2024 025 12:16 AM WAREHOUSE MATERIAL HANDLER documented as of this encounter Care Teams Installers Mechanical Relationship Specialty Start Date End Date Chris Bourgeois MD [address] [facility] [address] [place] [address] PCP - General Internal Medicine 07/03/19 Leopoldo Rodriguez MD Consulting Physician Neurology 09/14/17 06/09/24 documented as of this encounter
--- OUTSIDE RECORDS SUMMARY | 2024-10-02 08:38 | XMS_ITS | Encounter Summary ---
Author Organization [facility] Address [address] [place] [address] Phone Care Team Providers Care Director Manufacturing Engineering Name Role Phone Leopoldo Rodriguez MD Unavailable [phone] Chris Bourgeois MD Primary Care Provider [phone] Encounter Details Date Type Department Care Team (Late st Contact Info) Description 05/19/2021 Lab Requisition [facility] Laboratory Services 1 [place] [address] Sher Nuñez MD [address] [place] [address] [address] [place] [address] Encounter for screening for other bacterial diseases Social History Tobacco Use Types Packs/Day Years Used Date Smoking Tobacco: Never Smokeless Tobacco: Never Alcohol Use Standard Drinks/Week Comments Not Currently 0 (1 standard drink = 0.6 oz pur e alcohol) Sexually Active Control Partners Comments Never Sex and Gender Information Value Date Recorded Sex Assigned at Not on file Legal Sex Male 4:11 PM PROBATION OFFICER Gender Identity Not on file Sexual Orientation Not on file documented as of this encounter Plan of Treatment Not on file documented as of this encounter Procedures Procedure Name Priority Date/Time Associated Diagnosis Comments SARS-COV-2 BY MOLECULAR Routine 05/19/2021 7:27 AM CDT Encounter for screening for other bacterial diseases documented in this encounter Results * SARS-COV-2 BY MOLECULAR (05/19/2021 7:27 AM CDT) SARSCOV2 NOT DETECTED (Referen ce Range for this test is Not Detected ) [facility] THERMOFISHER FAST DX 05/20/2021 7:12 AM CDT [facility] Comment:This test was perfor med by a RT-PCR method. Other COVID 19 Collection / Unknown 05/19/2021 7:27 AM CDT 05/19/2021 11:53 AM CDT Narrative [facility] - 05/20/2021 7:12 AM CDT Authorized Fact Sheets about this test for providers and patients are available at: https://www.fda.gov/medical-devices/fmzkommce-dzinrvfevf-bodqzdk-devices/emergen cy-us e-authorizations us Sher Nuñez MD MICROBIOLOGY - GENERAL ORDERAB LES Final Result [facility] [address] [place] [address], documented in this encounter Visit Diagnoses Diagnosis Encounter for screening for other bacterial diseases documented in this encounter Additional Health Concerns Infection Onset Date Last Indicated Resolved Time COVID - 19 04/14/2021 08/11/2021 08/13/2021 9:45 AM PROBATION OFFICER COVID - 19 Confirmed 08/11/2021 08/11/2021 022 12:16 AM PROBATION OFFICER COVID - 19 09/01/2021 09/01/2021 09/21/2021 12:1 6 AM PROBATION OFFICER COVID - 19 09/29/2021 10/06/2021 10/26/2021 12:1 7 AM CDT COVID - 19 11/03/2021 05/04/2022 05/05/2022 12:1 8 AM CDT COVID - 19 Confirmed 05/04/2022 05/04/2022 022 12:16 AM CDT COVID - 19 07/20/2022 10/05/2022 10/15/2022 12:1 6 AM CDT COVID - 19 06/09/2024 06/09/2024 06/09/2024 1:18 AM PROBATION OFFICER Respiratory Rule-Out 08/27/2024 08/27/2024 025 12:16 AM PROBATION OFFICER documented as of this encounter Care Teams Director Manufacturing Engineering Relationship Specialty Start Date End Date Chris Bourgeois MD [address] [place] [address] PCP - General Internal Medicine 07/03/19 Leopoldo Rodriguez MD Consulting Physician Neurology 09/14/17 06/09/24 documented as of this encounter
--- OUTSIDE RECORDS SUMMARY | 2024-10-02 08:38 | XMS_ITS | Encounter Summary ---
Author Organization [facility] Address [address] [place] [address] Phone Care Team Providers Care Hospitality Host Name Role Phone Leopoldo Rodriguez MD Unavailable [phone] Chris Bourgeois MD Primary Care Provider [phone] Encounter Details Date Type Department Care Team (Late st Contact Info) Description 07/28/2021 Lab Requisition [facility] Laboratory Services 1 [place] [id number] Sher Nuñez MD [address] [place] [address] [facility] [address] [place] [address] Social History Tobacco Use Types Packs/Day Years Used Date Smoking Tobacco: Never Smokeless Tobacco: Never Alcohol Use Standard Drinks/Week Comments Not Currently 0 (1 standard drink = 0.6 oz pur e alcohol) Sexually Active Control Partners Comments Never Sex and Gender Information Value Date Recorded Sex Assigned at Not on file Legal Sex Male 4:11 PM CLARITY DEVELOPER Gender Identity Not on file Sexual Orientation Not on file documented as of this encounter Plan of Treatment Not on file documented as of this encounter Procedures Procedure Name Priority Date/Time Associated Diagnosis Comments SARS-COV-2 BY MOLECULAR Routine 07/28/2021 7:39 AM CLARITY DEVELOPER documented in this encounter Results * SARS-COV-2 BY MOLECULAR (07/28/2021 7:39 AM CLARITY DEVELOPER) SARSCOV2 NOT DETECTED (Referen ce Range for this test is Not Detected ) [facility] THERMOFISHER FAST DX 07/30/2021 7:20 PM CLARITY DEVELOPER [facility] Comment:This test was perfor med by a RT-PCR method. Other Non-Phlebotomy Collection / Unknown 07/28/2021 7:39 AM CLARITY DEVELOPER 07/28/2021 11:44 AM CLARITY DEVELOPER Narrative [facility] - 07/30/2021 7:20 PM CLARITY DEVELOPER Authorized Fact Sheets about this test for providers and patients are available at: https://www.fda.gov/medical-devices/uztbtwhcb-wlhsoyixbk-cuzkash-devices/emergen cy-us e-authorizations us Sher Nuñez MD MICROBIOLOGY - GENERAL ORDERAB LES Final Result [facility] [address] [place] [address], documented in this encounter Visit Diagnoses Not on filedocumented in this encounter Additional Health Concerns Infection Onset Date Last Indicated Resolved Time COVID - 19 04/14/2021 08/11/2021 08/13/2021 9:45 AM CLARITY DEVELOPER COVID - 19 Confirmed 08/11/2021 08/11/2021 022 12:16 AM CLARITY DEVELOPER COVID - 19 09/01/2021 09/01/2021 09/21/2021 12:1 6 AM CLARITY DEVELOPER COVID - 19 09/29/2021 10/06/2021 10/26/2021 12:1 7 AM CDT COVID - 19 11/03/2021 05/04/2022 05/05/2022 12:1 8 AM CDT COVID - 19 Confirmed 05/04/2022 05/04/2022 022 12:16 AM CDT COVID - 19 07/20/2022 10/05/2022 10/15/2022 12:1 6 AM CDT COVID - 19 06/09/2024 06/09/2024 06/09/2024 1:18 AM CLARITY DEVELOPER Respiratory Rule-Out 08/27/2024 08/27/2024 025 12:16 AM CLARITY DEVELOPER documented as of this encounter Care Teams Hospitality Host Relationship Specialty Start Date End Date Chris Bourgeois MD [address] [place] [address] PCP - General Internal Medicine 07/03/19 Leopoldo Rodriguez MD Consulting Physician Neurology 09/14/17 06/09/24 documented as of this encounter
--- OUTSIDE RECORDS SUMMARY | 2024-10-02 08:38 | XMS_ITS | Encounter Summary ---
Author Organization [facility] Address [address] [place] [address] Phone Care Team Providers Care Sales Professional Name Role Phone Leopoldo Rodriguez MD Unavailable [phone] Chris Bourgeois MD Primary Care Provider [phone] Encounter Details Date Type Department Care Team (Late st Contact Info) Description 06/30/2021 Lab Requisition [facility] Laboratory Services 1 [place] [address] Sher Nuñez MD [address] [place] [address] [facility] [address] [place] [address] Encounter for screening for COVID-19 Social History Tobacco Use Types Packs/Day Years Used Date Smoking Tobacco: Never Smokeless Tobacco: Never Alcohol Use Standard Drinks/Week Comments Not Currently 0 (1 standard drink = 0.6 oz pur e alcohol) Sexually Active Control Partners Comments Never Sex and Gender Information Value Date Recorded Sex Assigned at Not on file Legal Sex Male 4:11 PM TOW MOTOR MECHANIC Gender Identity Not on file Sexual Orientation Not on file documented as of this encounter Plan of Treatment Not on file documented as of this encounter Procedures Procedure Name Priority Date/Time Associated Diagnosis Comments SARS-COV-2 BY MOLECULAR Routine 06/30/2021 7:39 AM TOW MOTOR MECHANIC Encounter for screening for COVID-19 documented in this encounter Results * SARS-COV-2 BY MOLECULAR (06/30/2021 7:39 AM TOW MOTOR MECHANIC) SARSCOV2 NOT DETECTED (Referen ce Range for this test is Not Detected ) [facility] THERMOFISHER FAST DX 07/01/2021 3:36 PM TOW MOTOR MECHANIC [facility] Comment:This test was perfor med by a RT-PCR method. Other No Phlebotomy Charged / Unknown 06/30/2021 7:39 AM TOW MOTOR MECHANIC 06/30/2021 11:24 AM TOW MOTOR MECHANIC Narrative [facility] - 07/01/2021 3:36 PM TOW MOTOR MECHANIC Authorized Fact Sheets about this test for providers and patients are available at: https://www.fda.gov/medical-devices/ohcvnjwra-napporzjhy-ainrvth-devices/emergen cy-us e-authorizations us Sher Nuñez MD MICROBIOLOGY - GENERAL ORDERAB LES Final Result [facility] [address] [place] [address], documented in this encounter Visit Diagnoses Diagnosis Encounter for screening for COVID-19 documented in this encounter Additional Health Concerns Infection Onset Date Last Indicated Resolved Time COVID - 19 04/14/2021 08/11/2021 08/13/2021 9:45 AM TOW MOTOR MECHANIC COVID - 19 Confirmed 08/11/2021 08/11/2021 022 12:16 AM TOW MOTOR MECHANIC COVID - 19 09/01/2021 09/01/2021 09/21/2021 12:1 6 AM TOW MOTOR MECHANIC COVID - 19 09/29/2021 10/06/2021 10/26/2021 12:1 7 AM CDT COVID - 19 11/03/2021 05/04/2022 05/05/2022 12:1 8 AM CDT COVID - 19 Confirmed 05/04/2022 05/04/2022 022 12:16 AM CDT COVID - 19 07/20/2022 10/05/2022 10/15/2022 12:1 6 AM CDT COVID - 19 06/09/2024 06/09/2024 06/09/2024 1:18 AM TOW MOTOR MECHANIC Respiratory Rule-Out 08/27/2024 08/27/2024 025 12:16 AM TOW MOTOR MECHANIC documented as of this encounter Care Teams Sales Professional Relationship Specialty Start Date End Date Chris Bourgeois MD [address] [facility] [address] [place] [address] PCP - General Internal Medicine 07/03/19 Leopoldo Rodriguez MD Consulting Physician Neurology 09/14/17 06/09/24 documented as of this encounter
--- OUTSIDE RECORDS SUMMARY | 2024-10-02 08:38 | XMS_ITS | Encounter Summary ---
Author Organization [facility] Address [address] [place] [address] Phone Care Team Providers Care Pick Up Operator Name Role Phone Leopoldo Rodriguez MD Unavailable [phone] Chris Bourgeois MD Primary Care Provider [phone] Encounter Details Date Type Department Care Team (Late st Contact Info) Description 06/02/2021 Lab Requisition [facility] Laboratory Services 1 [place] [id number] Sher Nuñez MD [address] [place] [address] [facility] [address] [place] [address] Social History Tobacco Use Types Packs/Day Years Used Date Smoking Tobacco: Never Smokeless Tobacco: Never Alcohol Use Standard Drinks/Week Comments Not Currently 0 (1 standard drink = 0.6 oz pur e alcohol) Sexually Active Control Partners Comments Never Sex and Gender Information Value Date Recorded Sex Assigned at Not on file Legal Sex Male 4:11 PM MANAGER MOBILITY Gender Identity Not on file Sexual Orientation Not on file documented as of this encounter Plan of Treatment Not on file documented as of this encounter Procedures Procedure Name Priority Date/Time Associated Diagnosis Comments SARS-COV-2 BY MOLECULAR Routine 06/02/2021 7:35 AM MANAGER MOBILITY documented in this encounter Results * SARS-COV-2 BY MOLECULAR (06/02/2021 7:35 AM MANAGER MOBILITY) SARSCOV2 NOT DETECTED (Referen ce Range for this test is Not Detected ) [facility] THERMOFISHER FAST DX 06/03/2021 10:05 AM MANAGER MOBILITY [facility] Comment:This test was perfor med by a RT-PCR method. Other Non-Phlebotomy Collection / Unknown 06/02/2021 7:35 AM MANAGER MOBILITY 06/02/2021 10:19 AM MANAGER MOBILITY Narrative [facility] - 06/03/2021 10:05 AM MANAGER MOBILITY Authorized Fact Sheets about this test for providers and patients are available at: https://www.fda.gov/medical-devices/imcrjmybk-rookhcreiw-zwikcux-devices/emergen cy-us e-authorizations us Sher Nuñez MD MICROBIOLOGY - GENERAL ORDERAB LES Final Result [facility] [address] [place] [address], documented in this encounter Visit Diagnoses Not on filedocumented in this encounter Additional Health Concerns Infection Onset Date Last Indicated Resolved Time COVID - 19 04/14/2021 08/11/2021 08/13/2021 9:45 AM MANAGER MOBILITY COVID - 19 Confirmed 08/11/2021 08/11/2021 022 12:16 AM MANAGER MOBILITY COVID - 19 09/01/2021 09/01/2021 09/21/2021 12:1 6 AM MANAGER MOBILITY COVID - 19 09/29/2021 10/06/2021 10/26/2021 12:1 7 AM CDT COVID - 19 11/03/2021 05/04/2022 05/05/2022 12:1 8 AM CDT COVID - 19 Confirmed 05/04/2022 05/04/2022 022 12:16 AM CDT COVID - 19 07/20/2022 10/05/2022 10/15/2022 12:1 6 AM CDT COVID - 19 06/09/2024 06/09/2024 06/09/2024 1:18 AM MANAGER MOBILITY Respiratory Rule-Out 08/27/2024 08/27/2024 025 12:16 AM MANAGER MOBILITY documented as of this encounter Care Teams Pick Up Operator Relationship Specialty Start Date End Date Chris Bourgeois MD [address] [place] [address] PCP - General Internal Medicine 07/03/19 Leopoldo Rodriguez MD Consulting Physician Neurology 09/14/17 06/09/24 documented as of this encounter
--- OUTSIDE RECORDS SUMMARY | 2024-10-02 08:38 | XMS_ITS | Encounter Summary ---
Author Organization [facility] Address [address] [place] [address] Phone Care Team Providers Care Supervisor Nurse Name Role Phone Leopoldo Rodriguez MD Unavailable [phone] Chris Bourgeois MD Primary Care Provider [phone] Encounter Details Date Type Department Care Team (Late st Contact Info) Description 07/20/2022 Lab Requisition [facility] Laboratory Services 1 [place] [address] Sher Nuñez MD [address] [place] [address] [facility] [address] [place] [address] Encounter for screening for COVID-19 Social History Tobacco Use Types Packs/Day Years Used Date Smoking Tobacco: Never Smokeless Tobacco: Never Alcohol Use Standard Drinks/Week Comments Not Currently 0 (1 standard drink = 0.6 oz pur e alcohol) Sexually Active Control Partners Comments Never Sex and Gender Information Value Date Recorded Sex Assigned at Not on file Legal Sex Male 4:11 PM KIER HAND Gender Identity Not on file Sexual Orientation Not on file documented as of this encounter Plan of Treatment Not on file documented as of this encounter Procedures Procedure Name Priority Date/Time Associated Diagnosis Comments SARS-COV-2 BY MOLECULAR Routine 07/20/2022 7:20 AM KIER HAND Encounter for screening for COVID-19 documented in this encounter Results * SARS-COV-2 BY MOLECULAR (07/20/2022 7:20 AM KIER HAND) SARSCOV2 NOT DETECTED (Referen ce Range for this test is Not Detected ) [facility] THERMOFISHER FAST DX 07/21/2022 7:20 PM KIER HAND [facility] Comment:This test was perfor med by a RT-PCR method. Other Non-Phlebotomy Collection / Unknown 07/20/2022 7:20 AM KIER HAND 07/20/2022 12:49 PM KIER HAND Narrative [facility] - 07/21/2022 7:20 PM KIER HAND Authorized Fact Sheets about this test for providers and patients are available at: https://www.fda.gov/medical-devices/frrjsrvob-fmbyrpgifj-payepji-devices/emergen cy-us e-authorizations us Sher Nuñez MD MICROBIOLOGY - GENERAL ORDERAB LES Final Result [facility] [address] [place] [address], documented in this encounter Visit Diagnoses Diagnosis Encounter for screening for COVID-19 documented in this encounter Additional Health Concerns Infection Onset Date Last Indicated Resolved Time COVID - 19 07/20/2022 10/05/2022 10/15/2022 12:1 6 AM CDT COVID - 19 06/09/2024 06/09/2024 06/09/2024 1:18 AM KIER HAND Respiratory Rule-Out 08/27/2024 08/27/2024 025 12:16 AM KIER HAND documented as of this encounter Care Teams Supervisor Nurse Relationship Specialty Start Date End Date Chris Bourgeois MD [address] [facility] [address] [address] PCP - General Internal Medicine 07/03/19 Leopoldo Rodriguez MD Consulting Physician Neurology 09/14/17 06/09/24 documented as of this encounter
--- OUTSIDE RECORDS SUMMARY | 2024-10-02 08:38 | XMS_ITS | Encounter Summary ---
Author Organization [facility] Address [address] [place] [address] Phone Care Team Providers Care Bobbin Collector Name Role Phone Leopoldo Rodriguez MD Unavailable [phone] Chris Bouregois MD Primary Care Provider [phone] Encounter Details Date Type Department Care Team (Late st Contact Info) Description 09/28/2022 Lab Requisition [facility] Laboratory Services 1 [place] [address] Sher Nuñez MD [address] [place] [address] [facility] [address] [place] [address] Encounter for screening for COVID-19 Social History Tobacco Use Types Packs/Day Years Used Date Smoking Tobacco: Never Smokeless Tobacco: Never Alcohol Use Standard Drinks/Week Comments Not Currently 0 (1 standard drink = 0.6 oz pur e alcohol) Sexually Active Control Partners Comments Never Sex and Gender Information Value Date Recorded Sex Assigned at Not on file Legal Sex Male 4:11 PM DEPOT AGENT Gender Identity Not on file Sexual Orientation Not on file documented as of this encounter Plan of Treatment Not on file documented as of this encounter Procedures Procedure Name Priority Date/Time Associated Diagnosis Comments SARS-COV-2 BY MOLECULAR Routine 09/28/2022 7:20 AM DEPOT AGENT Encounter for screening for COVID-19 documented in this encounter Results * SARS-COV-2 BY MOLECULAR (09/28/2022 7:20 AM DEPOT AGENT) SARSCOV2 NOT DETECTED (Referen ce Range for this test is Not Detected ) [facility] THERMOFISHER FAST DX 09/28/2022 7:37 PM DEPOT AGENT [facility] Comment:This test was perfor med by a RT-PCR method. Other Non-Phlebotomy Collection / Unknown 09/28/2022 7:20 AM DEPOT AGENT 09/28/2022 9:57 AM DEPOT AGENT Narrative [facility] - 09/28/2022 7:37 PM DEPOT AGENT Authorized Fact Sheets about this test for providers and patients are available at: https://www.fda.gov/medical-devices/hkqsyklpv-rnqjqdenpt-khbpzlz-devices/emergen cy-us e-authorizations us Sher Nuñez MD MICROBIOLOGY - GENERAL ORDERAB LES Final Result [facility] [address] [place] [address], documented in this encounter Visit Diagnoses Diagnosis Encounter for screening for COVID-19 documented in this encounter Additional Health Concerns Infection Onset Date Last Indicated Resolved Time COVID - 19 07/20/2022 10/05/2022 10/15/2022 12:1 6 AM CDT COVID - 19 06/09/2024 06/09/2024 06/09/2024 1:18 AM DEPOT AGENT Respiratory Rule-Out 08/27/2024 08/27/2024 025 12:16 AM DEPOT AGENT documented as of this encounter Care Teams Bobbin Collector Relationship Specialty Start Date End Date Chris Bourgeois MD [address] [facility] [address] [place] [address] PCP - General Internal Medicine 07/03/19 Leopoldo Rodriguez MD Consulting Physician Neurology 09/14/17 06/09/24 documented as of this encounter
--- OUTSIDE RECORDS SUMMARY | 2024-10-02 08:38 | XMS_ITS | Encounter Summary ---
Author Organization [facility] Address [address] [place] [address] Phone Care Team Providers Care Resaw Feeder Name Role Phone Leopoldo Rodriguez MD Unavailable [phone] Chris Bourgeois MD Primary Care Provider Encounter Details Date Type Department Care Team (Late st Contact Info) Description 08/03/2022 Lab Requisition [facility] Laboratory Services 1 [place] [address] Sher Nuñez MD [address] [place] [address] [facility] [address] [place] [address] Encounter for screening for COVID-19 Social History Tobacco Use Types Packs/Day Years Used Date Smoking Tobacco: Never Smokeless Tobacco: Never Alcohol Use Standard Drinks/Week Comments Not Currently 0 (1 standard drink = 0.6 oz pur e alcohol) Sexually Active Control Partners Comments Never Sex and Gender Information Value Date Recorded Sex Assigned at Not on file Legal Sex Male 4:11 PM PEANUT CLEANER Gender Identity Not on file Sexual Orientation Not on file documented as of this encounter Plan of Treatment Not on file documented as of this encounter Procedures Procedure Name Priority Date/Time Associated Diagnosis Comments SARS-COV-2 BY MOLECULAR Routine 08/03/2022 7:26 AM PEANUT CLEANER Encounter for screening for COVID-19 documented in this encounter Results * SARS-COV-2 BY MOLECULAR (08/03/2022 7:26 AM PEANUT CLEANER) SARSCOV2 NOT DETECTED (Referen ce Range for this test is Not Detected ) [facility] THERMOFISHER FAST DX 08/03/2022 10:53 PM PEANUT CLEANER [facility] Comment:This test was perfor med by a RT-PCR method. Other Non-Phlebotomy Collection / Unknown 08/03/2022 7:26 AM PEANUT CLEANER 08/03/2022 10:15 AM PEANUT CLEANER Narrative [facility] - 08/03/2022 10:53 PM PEANUT CLEANER Authorized Fact Sheets about this test for providers and patients are available at: https://www.fda.gov/medical-devices/iwbrgkuam-stellzyowk-psirbqd-devices/emergen cy-us e-authorizations us Sher Nuñez MD MICROBIOLOGY - GENERAL ORDERAB LES Final Result [facility] [address] [place] [address], documented in this encounter Visit Diagnoses Diagnosis Encounter for screening for COVID-19 documented in this encounter Additional Health Concerns Infection Onset Date Last Indicated Resolved Time COVID - 19 07/20/2022 10/05/2022 10/15/2022 12:1 6 AM CDT COVID - 19 06/09/2024 06/09/2024 06/09/2024 1:18 AM PEANUT CLEANER Respiratory Rule-Out 08/27/2024 08/27/2024 025 12:16 AM PEANUT CLEANER documented as of this encounter Care Teams Resaw Feeder Relationship Specialty Start Date End Date Chris Bourgeois MD [address] [facility] [address] [place] [address] PCP - General Internal Medicine 07/03/19 Leopoldo Rodriguez MD Consulting Physician Neurology 09/14/17 06/09/24 documented as of this encounter
--- OUTSIDE RECORDS SUMMARY | 2024-10-02 08:38 | XMS_ITS | Encounter Summary ---
Author Organization [facility] Address [address] [place] [address] Phone Care Team Providers Care Sole Tacker Name Role Phone Leopoldo Rodriguez MD Unavailable [phone] Chris Bourgeois MD Primary Care Provider [phone] Encounter Details Date Type Department Care Team (Late st Contact Info) Description 09/07/2022 Lab Requisition [facility] Laboratory Services 1 [place] [address] Sher Nuñez MD [address] [place] [address] [facility] [address] [place] [address] Encounter for screening for COVID-19 Social History Tobacco Use Types Packs/Day Years Used Date Smoking Tobacco: Never Smokeless Tobacco: Never Alcohol Use Standard Drinks/Week Comments Not Currently 0 (1 standard drink = 0.6 oz pur e alcohol) Sexually Active Control Partners Comments Never Sex and Gender Information Value Date Recorded Sex Assigned at Not on file Legal Sex Male 4:11 PM WINDOW CASER Gender Identity Not on file Sexual Orientation Not on file documented as of this encounter Plan of Treatment Not on file documented as of this encounter Procedures Procedure Name Priority Date/Time Associated Diagnosis Comments SARS-COV-2 BY MOLECULAR Routine 09/07/2022 7:53 AM WINDOW CASER Encounter for screening for COVID-19 documented in this encounter Results * SARS-COV-2 BY MOLECULAR (09/07/2022 7:53 AM WINDOW CASER) SARSCOV2 NOT DETECTED (Referen ce Range for this test is Not Detected ) [facility] THERMOFISHER FAST DX 09/07/2022 8:07 PM WINDOW CASER [facility] Comment:This test was perfor med by a RT-PCR method. Other COVID 19 Collection / Unknown 09/07/2022 7:53 AM WINDOW CASER 09/07/2022 9:50 AM WINDOW CASER Narrative [facility] - 09/07/2022 8:07 PM WINDOW CASER Authorized Fact Sheets about this test for providers and patients are available at: https://www.fda.gov/medical-devices/xbgjbcewx-dhbwmsapny-njipsyo-devices/emergen cy-us e-authorizations us Sher Nuñez MD MICROBIOLOGY - GENERAL ORDERAB LES Final Result [facility] [address] [place] [address], documented in this encounter Visit Diagnoses Diagnosis Encounter for screening for COVID-19 documented in this encounter Additional Health Concerns Infection Onset Date Last Indicated Resolved Time COVID - 19 07/20/2022 10/05/2022 10/15/2022 12:1 6 AM CDT COVID - 19 06/09/2024 06/09/2024 06/09/2024 1:18 AM WINDOW CASER Respiratory Rule-Out 08/27/2024 08/27/2024 025 12:16 AM WINDOW CASER documented as of this encounter Care Teams Sole Tacker Relationship Specialty Start Date End Date Chris Bourgeois MD [address] [facility] [address] [place] [address] PCP - General Internal Medicine 07/03/19 Leopoldo Rodriguez MD Consulting Physician Neurology 09/14/17 06/09/24 documented as of this encounter
--- OUTSIDE RECORDS SUMMARY | 2024-10-02 08:38 | XMS_ITS | Encounter Summary ---
Author Organization [facility] Address [address] [place] [address] Phone Care Team Providers Care Weigh Box Tender Name Role Phone Leopoldo Rodriguez MD Unavailable [phone] Chris Bourgeois MD Primary Care Provider [phone] Encounter Details Date Type Department Care Team (Late st Contact Info) Description 04/27/2022 Lab Requisition [facility] Laboratory Services 1 [place] [address] Sher Nuñez MD [address] [place] [address] [address] [place] [address] Encounter for screening for COVID-19 Social History Tobacco Use Types Packs/Day Years Used Date Smoking Tobacco: Never Smokeless Tobacco: Never Alcohol Use Standard Drinks/Week Comments Not Currently 0 (1 standard drink = 0.6 oz pur e alcohol) Sexually Active Control Partners Comments Never Sex and Gender Information Value Date Recorded Sex Assigned at Not on file Legal Sex Male 4:11 PM TONNAGE COMPILATION CLERK Gender Identity Not on file Sexual [...] Associated Diagnosis Comments SARS-COV-2 BY MOLECULAR Routine 04/27/2022 7:29 AM CDT Encounter for screening for COVID-19 documented in this encounter Results * SARS-COV-2 BY MOLECULAR (04/27/2022 7:29 AM CDT) SARSCOV2 NOT DETECTED (Referen ce Range for this test is Not Detected ) [facility] THERMOFISHER FAST DX 04/28/2022 5:43 AM CDT [facility] Comment:This test was perfor med by a RT-PCR method. Other Non-Phlebotomy Collection / Unknown 04/27/2022 7:29 AM CDT 04/27/2022 1:36 PM CDT Narrative [facility] - 04/28/2022 5:43 AM CDT Authorized Fact Sheets about this test for providers and patients are available at: https://www.fda.gov/medical-devices/gohjwymgt-czszaokwmq-hadbzln-devices/emergen cy-us e-authorizations us Sher Nuñez MD MICROBIOLOGY - GENERAL ORDERAB LES Final Result Performing Organization Address City/State/[facility] Co de Phone Number [facility] [address] [place] [address], documented in this encounter Visit Diagnoses Diagnosis [...] - 19 06/09/2024 06/09/2024 06/09/2024 1:18 AM TONNAGE COMPILATION CLERK Respiratory Rule-Out 08/27/2024 08/27/2024 025 12:16 AM TONNAGE COMPILATION CLERK documented as of this encounter Care Teams Weigh Box Tender Relationship Specialty Start Date End Date Chris Bourgeois MD [address] [place] [address] PCP - General Internal Medicine 07/03/19 Leopoldo Rodriguez MD Consulting Physician Neurology 09/14/17 06/09/24 documented as of this encounter
--- OUTSIDE RECORDS SUMMARY | 2024-10-02 08:38 | XMS_ITS | Encounter Summary ---
Author Organization [facility] Address [address] [place] [address] Phone Care Team Providers Care Jordan Worker Name Role Phone Leopoldo Rodriguez MD Unavailable [phone] Chris Bourgeois MD Primary Care Provider [phone] Encounter Details Date Type Department Care Team (Late st Contact Info) Description 06/09/2021 Lab Requisition [facility] 1 [place] [address] Sher Nuñez MD [address] [place] [address] [facility] [address] [place] [address] Encounter for screening for COVID-19 Social History Tobacco Use Types Packs/Day Years Used Date Smoking Tobacco: Never Smokeless Tobacco: Never Alcohol Use Standard Drinks/Week Comments Not Currently 0 (1 standard drink = 0.6 oz pur e alcohol) Sexually Active Control Partners Comments Never Sex and Gender Information Value Date Recorded Sex Assigned at Not on file Legal Sex Male 4:11 PM VICE PRESIDENT NETWORK Gender Identity Not on file Sexual Orientation Not on file documented as of this encounter Plan of Treatment Not on file documented as of this encounter Procedures Procedure Name Priority Date/Time Associated Diagnosis Comments SARS-COV-2 BY MOLECULAR Routine 06/09/2021 7:32 AM VICE PRESIDENT NETWORK Encounter for screening for COVID-19 documented in this encounter Results * SARS-COV-2 BY MOLECULAR (06/09/2021 7:32 AM VICE PRESIDENT NETWORK) SARSCOV2 NOT DETECTED (Referen ce Range for this test is Not Detected ) [facility] THERMOFISHER FAST DX 06/10/2021 8:54 AM VICE PRESIDENT NETWORK [facility] Comment:This test was perfor med by a RT-PCR method. Other Non-Phlebotomy Collection / Unknown 06/09/2021 7:32 AM VICE PRESIDENT NETWORK 06/09/2021 10:45 AM VICE PRESIDENT NETWORK Narrative [facility] - 06/10/2021 8:54 AM VICE PRESIDENT NETWORK Authorized Fact Sheets about this test for providers and patients are available at: https://www.fda.gov/medical-devices/ecbufctov-kaynxfzdsp-mjnvpwf-devices/emergen cy-us e-authorizations us Sher Nuñez MD MICROBIOLOGY - GENERAL ORDERAB LES Final Result [facility] [address] [place] [address], documented in this encounter Visit Diagnoses Diagnosis Encounter for screening for COVID-19 documented in this encounter Additional Health Concerns Infection Onset Date Last Indicated Resolved Time COVID - 19 04/14/2021 08/11/2021 08/13/2021 9:45 AM VICE PRESIDENT NETWORK COVID - 19 Confirmed 08/11/2021 08/11/2021 022 12:16 AM VICE PRESIDENT NETWORK COVID - 19 09/01/2021 09/01/2021 09/21/2021 12:1 6 AM VICE PRESIDENT NETWORK COVID - 19 09/29/2021 10/06/2021 10/26/2021 12:1 7 AM CDT COVID - 19 11/03/2021 05/04/2022 05/05/2022 12:1 8 AM CDT COVID - 19 Confirmed 05/04/2022 05/04/2022 022 12:16 AM CDT COVID - 19 07/20/2022 10/05/2022 10/15/2022 12:1 6 AM CDT COVID - 19 06/09/2024 06/09/2024 06/09/2024 1:18 AM VICE PRESIDENT NETWORK Respiratory Rule-Out 08/27/2024 08/27/2024 025 12:16 AM VICE PRESIDENT NETWORK documented as of this encounter Care Teams Jordan Worker Relationship Specialty Start Date End Date Chris Bourgeois MD [address] [place] [address] PCP - General Internal Medicine 07/03/19 Leopoldo Rodriguez MD Consulting Physician Neurology 09/14/17 06/09/24 documented as of this encounter
--- OUTSIDE RECORDS SUMMARY | 2024-10-02 08:39 | XMS_ITS | Encounter Summary ---
Author Organization [facility] Address [address] [place] [address] Phone Care Team Providers Care Railroad Car Painter Name Role Phone Leopoldo Rodriguez MD Unavailable [phone] Chris Bourgeois MD Primary Care Provider Encounter Details Date Type Department Care Team (Late st Contact Info) Description 03/23/2022 Lab Requisition [facility] Laboratory Services 1 [place] [address] Sher Nuñez MD [address] [place] [address] [facility] [address] [place] [address] Encounter for screening for COVID-19 Social History Tobacco Use Types Packs/Day Years Used Date Smoking Tobacco: Never Smokeless Tobacco: Never Alcohol Use Standard Drinks/Week Comments Not Currently 0 (1 standard drink = 0.6 oz pur e alcohol) Sexually Active Control Partners Comments Never Sex and Gender Information Value Date Recorded Sex Assigned at Not on file Legal Sex Male 4:11 PM PAINT POURER Gender Identity Not on file Sexual Orientation Not on file documented as of this encounter Plan of Treatment Not on file documented as of this encounter Procedures Procedure Name Priority Date/Time Associated Diagnosis Comments SARS-COV-2 BY MOLECULAR Routine 03/23/2022 7:24 AM CDT Encounter for screening for COVID-19 documented in this encounter Results * SARS-COV-2 BY MOLECULAR (03/23/2022 7:24 AM CDT) SARSCOV2 NOT DETECTED (Referen ce Range for this test is Not Detected ) [facility] THERMOFISHER FAST DX 03/24/2022 6:15 AM CDT [facility] Comment:This test was perfor med by a RT-PCR method. Other Non-Phlebotomy Collection / Unknown 03/23/2022 7:24 AM CDT 03/23/2022 12:45 PM CDT Narrative [facility] - 03/24/2022 6:15 AM CDT Authorized Fact Sheets about this test for providers and patients are available at: https://www.fda.gov/medical-devices/qdonqituv-ywkxopylyl-rjbcvtf-devices/emergen cy-us e-authorizations us Sher Nuñez MD MICROBIOLOGY - GENERAL ORDERAB LES Final Result [facility] [address] [place] [address], documented in this encounter Visit Diagnoses Diagnosis [...] - 19 06/09/2024 06/09/2024 06/09/2024 1:18 AM PAINT POURER Respiratory Rule-Out 08/27/2024 08/27/2024 025 12:16 AM PAINT POURER documented as of this encounter Care Teams Railroad Car Painter Relationship Specialty Start Date End Date Chris Bourgeois MD [address] [facility] [address] [place] [address] PCP - General Internal Medicine 07/03/19 Leopoldo Rodriguez MD Consulting Physician Neurology 09/14/17 06/09/24 documented as of this encounter
--- OUTSIDE RECORDS SUMMARY | 2024-10-02 08:39 | XMS_ITS | Encounter Summary ---
Author Organization [facility] Address [address] [place] [address] Phone Care Team Providers Care Paying Teller Name Role Phone Chris Bourgeois MD Primary Care Provider [phone] Encounter Details Date Type Department Care Team (Late st Contact Info) Description 08/27/2024 Lab Requisition [facility] Laboratory Services 1 [place] [address] Sher Nuñez MD [address] [place] [address] [address] [place] [address] Contact with and (suspected) exposure to unspecified communicable disease; Acute cough Social History Tobacco Use Types Packs/Day Years Used Date Smoking Tobacco: Never Smokeless Tobacco: Never Alcohol Use Standard Drinks/Week Comments Not Currently 0 (1 standard drink = 0.6 oz pur e alcohol) Sexually Active Control Partners Comments Never Sex and Gender Information Value Date Recorded Sex Assigned at Not on file Legal Sex Male 4:11 PM RADIOLOGICAL TECHNOLOGIST Gender Identity Not on file Sexual Orientation Not on file documented as of this encounter Plan of Treatment Not on file documented as of this encounter Procedures Procedure Name Priority Date/Time Associated Diagnosis Comments RSV,SARS-COV-2,INF LUENZA A&B BY PCR Routine 08/27/2024 6:25 AM RADIOLOGICAL TECHNOLOGIST Contact with and (suspected) exposure to unspecified communicable disease Acute cough documented in this encounter Results * RSV,SARS-COV-2,INFLUENZA A&B BY PCR (08/27/2024 6:25 AM RADIOLOGICAL TECHNOLOGIST) FLU A Negative Negative, Error 08/27/2024 11:06 AM RADIOLOGICAL TECHNOLOGIST [facility] FLU B Negative Negative 08/27/2024 11:06 AM RADIOLOGICAL TECHNOLOGIST [facility] RESP SYNC VIRUS Negative Negative 11:06 AM RADIOLOGICAL TECHNOLOGIST [facility] SARSCOV2 NOT DETECTED (Reference Range for this test is Not Detected) 08/27/2024 11:06 AM RADIOLOGICAL TECHNOLOGIST [facility] Comment:This test was perfor med by a Reverse [employer] Architect PCR Method. Swab Non-Phlebotomy Collection / Unknown 08/27/2024 6:25 AM RADIOLOGICAL TECHNOLOGIST 08/27/2024 7:59 AM RADIOLOGICAL TECHNOLOGIST Sher Nuñez MD MICROBIOLOGY - GENERAL ORDERAB LES Final Result [facility] [place] [address] documented in this encounter Visit Diagnoses Diagnosis Contact with and (suspected) exposure to unspecified communicable disease Acute cough documented in this encounter Additional Health Concerns Infection Onset Date Last Indicated Resolved Time Respiratory Rule-Out 08/27/2024 08/27/2024 025 12:16 AM RADIOLOGICAL TECHNOLOGIST documented as of this encounter Care Teams Paying Teller Relationship Specialty Start Date End Date Chris Bourgeois MD [address] [place] [address] PCP - General Internal Medicine 07/03/19 documented as of this encounter
--- OUTSIDE RECORDS SUMMARY | 2024-10-02 08:39 | XMS_ITS | Encounter Summary ---
Author Organization [facility] Address [address] [place] [address] Phone Care Team Providers Care Vending Route Driver Name Role Phone Leopoldo Rodriguez MD Unavailable [phone] Chris Bourgeois MD Primary Care Provider [phone] Encounter Details Date Type Department Care Team (Late st Contact Info) Description 12/08/2021 Lab Requisition [facility] Laboratory Services 1 [place] [address] Sher Nuñez MD [address] [place] [address] [facility] [address] [place] [address] Encounter for screening for COVID-19 Social History Tobacco Use Types Packs/Day Years Used Date Smoking Tobacco: Never Smokeless Tobacco: Never Alcohol Use Standard Drinks/Week Comments Not Currently 0 (1 standard drink = 0.6 oz pur e alcohol) Sexually Active Control Partners Comments Never Sex and Gender Information Value Date Recorded Sex Assigned at Not on file Legal Sex Male 4:11 PM DEBUBBLIZER Gender Identity Not on file Sexual Orientation Not on file documented as of this encounter Plan of Treatment Not on file documented as of this encounter Procedures Procedure Name Priority Date/Time Associated Diagnosis Comments SARS-COV-2 BY MOLECULAR Routine 12/08/2021 7:09 AM CDT Encounter for screening for COVID-19 documented in this encounter Results * SARS-COV-2 BY MOLECULAR (12/08/2021 7:09 AM CDT) SARSCOV2 NOT DETECTED (Referen ce Range for this test is Not Detected ) [facility] THERMOFISHER FAST DX 12/09/2021 6:32 PM CDT [facility] Comment:This test was perfor med by a RT-PCR method. Other Non-Phlebotomy Collection / Unknown 12/08/2021 7:09 AM CDT 12/08/2021 12:29 PM CDT Narrative [facility] - 12/09/2021 6:32 PM CDT Authorized Fact Sheets about this test for providers and patients are available at: https://www.fda.gov/medical-devices/ikkjaphjg-ghjmfhxwzu-ityfilr-devices/emergen cy-us e-authorizations us Sher Nuñez MD MICROBIOLOGY - GENERAL ORDERAB LES Final Result [facility] [address] [place] [address], documented in this encounter Visit Diagnoses Diagnosis [...] - 19 06/09/2024 06/09/2024 06/09/2024 1:18 AM DEBUBBLIZER Respiratory Rule-Out 08/27/2024 08/27/2024 025 12:16 AM DEBUBBLIZER documented as of this encounter Care Teams Vending Route Driver Relationship Specialty Start Date End Date Chris Bourgeois MD [address] [facility] [address] [place] [address] PCP - General Internal Medicine 07/03/19 Leopoldo Rodriguez MD Consulting Physician Neurology 09/14/17 06/09/24 documented as of this encounter
--- OUTSIDE RECORDS SUMMARY | 2024-10-02 08:39 | XMS_ITS | Encounter Summary ---
Author Organization [facility] Address [address] [place] [address] Phone Care Team Providers Care District Court Administrator Name Role Phone Leopoldo Rodriguez MD Unavailable [phone] Chris Bourgeois MD Primary Care Provider Encounter Details Date Type Department Care Team (Late st Contact Info) Description 12/29/2021 Lab Requisition [facility] Laboratory Services 1 [place] [address] Sher Nuñez MD [address] [place] [address] [facility] [address] [place] [address] Encounter for screening for COVID-19 Social History Tobacco Use Types Packs/Day Years Used Date Smoking Tobacco: Never Smokeless Tobacco: Never Alcohol Use Standard Drinks/Week Comments Not Currently 0 (1 standard drink = 0.6 oz pur e alcohol) Sexually Active Control Partners Comments Never Sex and Gender Information Value Date Recorded Sex Assigned at Not on file Legal Sex Male 4:11 PM LIVING SKILLS ADVISOR Gender Identity Not on file Sexual Orientation Not on file documented as of this encounter Plan of Treatment Not on file documented as of this encounter Procedures Procedure Name Priority Date/Time Associated Diagnosis Comments SARS-COV-2 BY MOLECULAR Routine 12/29/2021 7:27 AM CDT Encounter for screening for COVID-19 documented in this encounter Results * SARS-COV-2 BY MOLECULAR (12/29/2021 7:27 AM CDT) SARSCOV2 NOT DETECTED (Referen ce Range for this test is Not Detected ) [facility] THERMOFISHER FAST DX 12/30/2021 9:54 AM CDT [facility] Comment:This test was perfor med by a RT-PCR method. Other Non-Phlebotomy Collection / Unknown 12/29/2021 7:27 AM CDT 12/29/2021 11:26 AM CDT Narrative [facility] - 12/30/2021 9:54 AM CDT Authorized Fact Sheets about this test for providers and patients are available at: https://www.fda.gov/medical-devices/syrbjlnjw-kjdccdathe-cgerbqk-devices/emergen cy-us e-authorizations us Sher Nuñez MD MICROBIOLOGY - GENERAL ORDERAB LES Final Result [facility] [address] [place] [address], documented in this encounter Visit Diagnoses Diagnosis [...] - 19 06/09/2024 06/09/2024 06/09/2024 1:18 AM LIVING SKILLS ADVISOR Respiratory Rule-Out 08/27/2024 08/27/2024 025 12:16 AM LIVING SKILLS ADVISOR documented as of this encounter Care Teams District Court Administrator Relationship Specialty Start Date End Date Chris Bourgeois MD [address] [facility] [address] [place] [address] PCP - General Internal Medicine 07/03/19 Leopoldo Rodriguez MD Consulting Physician Neurology 09/14/17 06/09/24 documented as of this encounter
--- OUTSIDE RECORDS SUMMARY | 2024-10-02 08:39 | XMS_ITS | Encounter Summary ---
Author Organization [facility] Address [address] [place] [address] Phone Care Team Providers Care Fire Boat Engineer Name Role Phone Leopoldo Rodriguez MD Unavailable [phone] Chris Bourgeois MD Primary Care Provider [phone] Encounter Details Date Type Department Care Team (Late st Contact Info) Description 04/13/2022 Lab Requisition [facility] Laboratory Services 1 [place] [address] Sher Nuñez MD [address] [place] [address] [address] [place] [address] Encounter for screening for COVID-19 Social History Tobacco Use Types Packs/Day Years Used Date Smoking Tobacco: Never Smokeless Tobacco: Never Alcohol Use Standard Drinks/Week Comments Not Currently 0 (1 standard drink = 0.6 oz pur e alcohol) Sexually Active Control Partners Comments Never Sex and Gender Information Value Date Recorded Sex Assigned at Not on file Legal Sex Male 4:11 PM LOW VISION THERAPIST Gender Identity Not on file Sexual Orientation [...] Associated Diagnosis Comments SARS-COV-2 BY MOLECULAR Routine 04/13/2022 7:17 AM CDT Encounter for screening for COVID-19 documented in this encounter Results * SARS-COV-2 BY MOLECULAR (04/13/2022 7:17 AM CDT) SARSCOV2 NOT DETECTED (Referen ce Range for this test is Not Detected ) [facility] THERMOFISHER FAST DX 04/14/2022 12:20 PM CDT [facility] Comment:This test was perfor med by a RT-PCR method. Other Non-Phlebotomy Collection / Unknown 04/13/2022 7:17 AM CDT 04/13/2022 11:28 AM CDT Narrative [facility] - 04/14/2022 12:20 PM CDT Authorized Fact Sheets about this test for providers and patients are available at: https://www.fda.gov/medical-devices/opysdfcqz-lneskdfrwb-scfzihc-devices/emergen cy-us e-authorizations us Sher Nuñez MD MICROBIOLOGY - GENERAL ORDERAB LES Final Result Performing Organization Address City/State/[facility] Co de Phone Number [facility] [address] [place] [address], documented in this encounter Visit Diagnoses Diagnosis [...] - 19 06/09/2024 06/09/2024 06/09/2024 1:18 AM LOW VISION THERAPIST Respiratory Rule-Out 08/27/2024 08/27/2024 025 12:16 AM LOW VISION THERAPIST documented as of this encounter Care Teams Fire Boat Engineer Relationship Specialty Start Date End Date Chris Bourgeois MD [address] [place] [address] PCP - General Internal Medicine 07/03/19 Leopoldo Rodriguez MD Consulting Physician Neurology 09/14/17 06/09/24 documented as of this encounter
--- OUTSIDE RECORDS SUMMARY | 2024-10-02 08:39 | XMS_ITS | Encounter Summary ---
Author Organization [facility] Address [address] [place] [address] Phone Care Team Providers Care Carton Stamper Name Role Phone Leopoldo Rodriguez MD Unavailable [phone] Chris Bourgeois MD Primary Care Provider [phone] Encounter Details Date Type Department Care Team (Late st Contact Info) Description 04/20/2022 Lab Requisition [facility] Laboratory Services 1 [place] [address] Sher Nuñez MD [address] [place] [address] [address] [place] [address] Encounter for screening for COVID-19 Social History Tobacco Use Types Packs/Day Years Used Date Smoking Tobacco: Never Smokeless Tobacco: Never Alcohol Use Standard Drinks/Week Comments Not Currently 0 (1 standard drink = 0.6 oz pur e alcohol) Sexually Active Control Partners Comments Never Sex and Gender Information Value Date Recorded Sex Assigned at Not on file Legal Sex Male 4:11 PM LEGUILLON DEBEADER Gender Identity Not on file Sexual Orientation [...] Associated Diagnosis Comments SARS-COV-2 BY MOLECULAR Routine 04/20/2022 7:25 AM CDT Encounter for screening for COVID-19 documented in this encounter Results * SARS-COV-2 BY MOLECULAR (04/20/2022 7:25 AM CDT) SARSCOV2 NOT DETECTED (Referen ce Range for this test is Not Detected ) [facility] THERMOFISHER FAST DX 04/21/2022 12:09 AM CDT [facility] Comment:This test was perfor med by a RT-PCR method. Other Non-Phlebotomy Collection / Unknown 04/20/2022 7:25 AM CDT 04/20/2022 11:58 AM CDT Narrative [facility] - 04/21/2022 12:09 AM CDT Authorized Fact Sheets about this test for providers and patients are available at: https://www.fda.gov/medical-devices/odswtvpum-igqlmcfijo-iiigfpa-devices/emergen cy-us e-authorizations us Sher Nuñez MD MICROBIOLOGY - GENERAL ORDERAB LES Final Result Performing Organization Address City/State/[facility] Co de Phone Number [facility] [address] [place] [address], documented in this encounter Visit Diagnoses Diagnosis [...] - 19 06/09/2024 06/09/2024 06/09/2024 1:18 AM LEGUILLON DEBEADER Respiratory Rule-Out 08/27/2024 08/27/2024 025 12:16 AM LEGUILLON DEBEADER documented as of this encounter Care Teams Carton Stamper Relationship Specialty Start Date End Date Chris Bourgeois MD [address] [place] [address] PCP - General Internal Medicine 07/03/19 Leopoldo Rodriguez MD Consulting Physician Neurology 09/14/17 06/09/24 documented as of this encounter
--- OUTSIDE RECORDS SUMMARY | 2024-10-02 08:39 | XMS_ITS | Encounter Summary ---
Author Organization [facility] Address [address] [place] [address] Phone Care Team Providers Care Stock Control Supervisor Name Role Phone Chris Bourgeois MD Primary Care Provider [phone] Encounter Details Date Type Department Care Team (Late st Contact Info) Description 08/28/2024 Lab Requisition [facility] Laboratory Services 1 [place] [address] Chris Bourgeois MD [address] [facility] [address] [place] [address] Pure hypercholesterolemia, unspecified; Other [place] [facility] ([facility] drug therapy; Moderate intellectual disabilities Social History Tobacco Use Types Packs/Day Years Used Date Smoking Tobacco: Never Smokeless Tobacco: Never Alcohol Use Standard Drinks/Week Comments Not Currently 0 (1 standard drink = 0.6 oz pur e alcohol) Sexually Active Control Partners Comments Never Sex and Gender Information Value Date Recorded Sex Assigned at Not on file Legal Sex Male 4:11 PM STEEL FINISHER Gender Identity Not on file Sexual Orientation Not on file documented as of this encounter Plan of Treatment Not on file documented as of this encounter Procedures Procedure Name Priority Date/Time Associated Diagnosis Comments CBC WITH AUTO DIFFERENTIAL Routine 08/28/2024 6:40 AM STEEL FINISHER Pure hypercholesterolemia , unspecified Other intermediate designer (current) drug therapy Moderate intellectual disabilities VALPROIC ACID (DEPAKENE) Routine 08/28/2024 6:40 AM STEEL FINISHER Pure hypercholesterolemia , unspecified Other intermediate designer (current) drug therapy Moderate intellectual disabilities LIPID PANEL Routine 08/28/2024 6:40 AM STEEL FINISHER Pure hypercholesterolemia , unspecified Other intermediate designer (current) drug therapy Moderate intellectual disabilities COMPLETE BLOOD COUNT (CBC) WITH DIFF Routine 08/28/2024 6:40 AM STEEL FINISHER Pure hypercholesterolemia , unspecified Other [place] [facility] drug therapy Moderate intellectual disabilities documented in this encounter Results * (ABNORMAL) CBC WITH AUTO DIFFERENTIAL (08/28/2024 6:40 AM [facility]) WBC 5.65 4.00 - 12.00 10(3)/mcL 08/28/2024 8:[address] [facility] RBC 4.40 4.40 - 5.80 10(6)/mcL 08/28/2024 8:[address] [facility] HEMOGLOBIN (HGB) 13.9 13.0 - 16.5 g/dL 08/28/2024 8:[address] [facility] HEMATOCRIT (HCT) 42.7 38.0 - 50.0 % 08/28/2024 8:[address] [facility] MCV 97.0(H) 82.0 - 96.0 fL 08/28/2024 8:[address] [facility] MCH 31.6 26.0 - 32.0 pg 08/28/2024 8:[address] [facility] MCHC 32.6 31.0 - 36.0 g/dL 08/28/2024 8:[address] [facility] PLATELET COUNT 224 140 - 440 10(3)/mcL 08/28/2024 8:[address] [facility] RDW 14.0 11.8 - 15.5 % 08/28/2024 8:[address] [facility] MPV 9.6 8.0 - 12.6 fL 08/28/2024 8:[address] [facility] NEUTROPHILS 59.8 40.0 - 68.0 % 08/28/2024 8:[address] [facility] LYMPHOCYTES 22.5 19.0 - 49.0 % 08/28/2024 8:[address] [facility] MONOCYTES 14.9(H) 3.0 - 13.0 % 08/28/2024 8:[address] [facility] EOSINOPHILS 2.3 0.0 - 8.0 % 08/28/2024 8:[address] [facility] BASOPHILS 0.5 0.0 - 1.0 % 08/28/2024 8:[address] [facility] ABSOLUTE NEUTROPHILS 3.38 1.40 - 5.30 10(3)/[facility] 08/28/2024 8:[address] [facility] ABSOLUTE LYMPHOCYTES 1.27 0.90 - 3.30 10(3)/[facility] 08/28/2024 8:[address] [facility] ABSOLUTE MONOCYTES 0.84 0.10 - 0.90 10(3)/[facility] 08/28/2024 8:[address] [facility] ABSOLUTE EOSINOPHIL 0.13 0.00 - 0.50 10(3)/[facility] 08/28/2024 8:[address] [facility] ABSOLUTE BASOPHILS 0.03 0.00 - 0.10 10(3)/[facility] 08/28/2024 8:[address] [facility] NRBC PER 100 WBC 0 08/28/19 25 8:[address] [facility] Blood Venipuncture / Unknown 08/28/2024 6:40 AM STEEL FINISHER 08/28/2024 7:53 AM [facility] us Chris Bourgeois MD HEMATOLOGY ORDERABLES Final Res ult [facility] #1 [place] [address] * (ABNORMAL) VALPROIC ACID (DEPAKENE) (08/28/2024 6:40 AM [facility]) VALPROIC ACID TOTAL 42(L) 50 - 100 mcg/mL 08/28/2024 8:[address] [facility] Blood Venipuncture / Unknown 08/28/2024 6:40 AM STEEL FINISHER 08/28/2024 7:53 AM STEEL FINISHER Chris Bourgeois MD CHEMISTRY ORDERABLES Final Resu lt Performing Organization Address [facility] Co de Phone Number [facility] [address] [place] [address] * LIPID PANEL (08/28/2024 6:40 AM STEEL FINISHER) CHOLESTEROL 165 <200 mg/dL 08/28/2024 8:57 AM STEEL FINISHER [facility] TRIGLYCERIDES 111 <150 mg/dL 08/28/2024 8:57 AM STEEL FINISHER [facility] HDL CHOLESTEROL 48 >40 mg/dL 8:57 AM STEEL FINISHER [facility] LDL 95 <130 mg/dL 08/28/2024 8:57 AM STEEL FINISHER [facility] VLDL 22 10 - 50 mg/dL 08/28/2024 8:57 AM STEEL FINISHER [facility] CHOL/HDL RATIO 3.4 0.0 - 4.4 08/28/2024 8:57 AM STEEL FINISHER [facility] NON-HDL CHOLESTEROL 117 <130 mg/dL 08/28/2024 8:57 AM STEEL FINISHER [facility] Blood Venipuncture / Unknown 08/28/2024 6:40 AM STEEL FINISHER 08/28/2024 7:53 AM STEEL FINISHER Chris Bourgeois MD CHEMISTRY ORDERABLES Final Resu lt Performing Organization Address [facility]/ZIP Co de Phone Number [facility] [address] [place] [address] documented in this encounter Visit Diagnoses Diagnosis Pure hypercholesterolemia, unspecified Other [place] [facility] (current) drug therapy Moderate intellectual disabilities documented in this encounter Additional Health Concerns Infection Onset Date Last Indicated Resolved Time Respiratory Rule-Out 08/27/2024 08/27/2024 025 12:16 AM STEEL FINISHER documented as of this encounter Care Teams Stock Control Supervisor Relationship Specialty Start Date End Date Chris Bourgeois MD [address] [place] [address] PCP - General Internal Medicine 07/03/19 documented as of this encounter
--- OUTSIDE RECORDS SUMMARY | 2024-10-02 08:39 | XMS_ITS | Encounter Summary ---
Author Organization [facility] Address [address] [place] [address] Phone Care Team Providers Care Professional System Administrator Name Role Phone Leopoldo Rodriguez MD Unavailable [phone] Chris Bourgeois MD Primary Care Provider [phone] Encounter Details Date Type Department Care Team (Late st Contact Info) Description 02/02/2022 Lab Requisition [facility] Laboratory Services 1 [place] [address] Sher Nuñez MD [address] [place] [address] [address] [place] [address] Encounter for screening for COVID-19 Social History Tobacco Use Types Packs/Day Years Used Date Smoking Tobacco: Never Smokeless Tobacco: Never Alcohol Use Standard Drinks/Week Comments Not Currently 0 (1 standard drink = 0.6 oz pur e alcohol) Sexually Active Control Partners Comments Never Sex and Gender Information Value Date Recorded Sex Assigned at Not on file Legal Sex Male 4:11 PM DIAMOND DIE MAKER Gender Identity Not on file Sexual Orientation Not on file documented as of this encounter Plan of Treatment Not on file documented as of this encounter Procedures Procedure Name Priority Date/Time Associated Diagnosis Comments SARS-COV-2 BY MOLECULAR Routine 02/02/2022 6:54 AM CDT Encounter for screening for COVID-19 documented in this encounter Results * SARS-COV-2 BY MOLECULAR (02/02/2022 6:54 AM CDT) SARSCOV2 NOT DETECTED (Referen ce Range for this test is Not Detected ) [facility] THERMOFISHER FAST DX 02/03/2022 10:49 AM CDT [facility] Comment:This test was perfor med by a RT-PCR method. Other Non-Phlebotomy Collection / Unknown 02/02/2022 6:54 AM CDT 02/02/2022 11:19 AM CDT Narrative [facility] - 02/03/2022 10:49 AM CDT Authorized Fact Sheets about this test for providers and patients are available at: https://www.fda.gov/medical-devices/vdqnzcekk-jhdyurxqro-bkamuvs-devices/emergen cy-us e-authorizations us Sher Nuñez MD MICROBIOLOGY - GENERAL ORDERAB LES Final Result [facility] [address] [place] [address], documented in this encounter Visit Diagnoses Diagnosis [...] - 19 06/09/2024 06/09/2024 06/09/2024 1:18 AM DIAMOND DIE MAKER Respiratory Rule-Out 08/27/2024 08/27/2024 025 12:16 AM DIAMOND DIE MAKER documented as of this encounter Care Teams Professional System Administrator Relationship Specialty Start Date End Date Chris Bourgeois MD [address] [facility] [address] [place] [address] PCP - General Internal Medicine 07/03/19 Leopoldo Rodriguez MD Consulting Physician Neurology 09/14/17 06/09/24 documented as of this encounter
--- OUTSIDE RECORDS SUMMARY | 2024-10-02 08:39 | XMS_ITS | Encounter Summary ---
Author Organization [facility] Address [address] [place] [address] Phone Care Team Providers Care Truck Guard Name Role Phone Leopoldo Rodriguez MD Unavailable [phone] Chris Bourgeois MD Primary Care Provider [phone] Encounter Details Date Type Department Care Team (Late st Contact Info) Description 02/09/2022 Lab Requisition [facility] Laboratory Services 1 [place] [address] Sher Nuñez MD [address] [place] [address] [facility] [address] [place] [address] Encounter for screening for COVID-19 Social History Tobacco Use Types Packs/Day Years Used Date Smoking Tobacco: Never Smokeless Tobacco: Never Alcohol Use Standard Drinks/Week Comments Not Currently 0 (1 standard drink = 0.6 oz pur e alcohol) Sexually Active Control Partners Comments Never Sex and Gender Information Value Date Recorded Sex Assigned at Not on file Legal Sex Male 4:11 PM BUFF WHEEL FABRICATOR Gender Identity Not on file Sexual Orientation Not on file documented as of this encounter Plan of Treatment Not on file documented as of this encounter Procedures Procedure Name Priority Date/Time Associated Diagnosis Comments SARS-COV-2 BY MOLECULAR Routine 02/09/2022 7:11 AM CDT Encounter for screening for COVID-19 documented in this encounter Results * SARS-COV-2 BY MOLECULAR (02/09/2022 7:11 AM CDT) SARSCOV2 NOT DETECTED (Referen ce Range for this test is Not Detected ) [facility] THERMOFISHER FAST DX 02/10/2022 7:37 AM CDT [facility] Comment:This test was perfor med by a RT-PCR method. Other Non-Phlebotomy Collection / Unknown 02/09/2022 7:11 AM CDT 02/09/2022 11:59 AM CDT Narrative [facility] - 02/10/2022 7:37 AM CDT Authorized Fact Sheets about this test for providers and patients are available at: https://www.fda.gov/medical-devices/qtyciexkv-rjhtrcsuxy-sewlbgl-devices/emergen cy-us e-authorizations us Sher Nuñez MD MICROBIOLOGY - GENERAL ORDERAB LES Final Result [facility] [address] [place] [address], documented in this encounter Visit Diagnoses Diagnosis [...] - 19 06/09/2024 06/09/2024 06/09/2024 1:18 AM BUFF WHEEL FABRICATOR Respiratory Rule-Out 08/27/2024 08/27/2024 025 12:16 AM BUFF WHEEL FABRICATOR documented as of this encounter Care Teams Truck Guard Relationship Specialty Start Date End Date Chris Bourgeois MD [address] [facility] [address] [place] [address] PCP - General Internal Medicine 07/03/19 Leopoldo Rodriguez MD Consulting Physician Neurology 09/14/17 06/09/24 documented as of this encounter
--- OUTSIDE RECORDS SUMMARY | 2024-10-02 08:39 | XMS_ITS | Encounter Summary ---
Author Organization [facility] Address [address] [place] [address] Phone Care Team Providers Care Radio News Anchor Name Role Phone Leopoldo Rodriguez MD Unavailable [phone] Chris Bourgeois MD Primary Care Provider [phone] Encounter Details Date Type Department Care Team (Late st Contact Info) Description 03/09/2022 Lab Requisition [facility] Laboratory Services 1 [place] [address] Sher Nuñez MD [address] [place] [address] [address] [place] [address] Encounter for screening for COVID-19 Social History Tobacco Use Types Packs/Day Years Used Date Smoking Tobacco: Never Smokeless Tobacco: Never Alcohol Use Standard Drinks/Week Comments Not Currently 0 (1 standard drink = 0.6 oz pur e alcohol) Sexually Active Control Partners Comments Never Sex and Gender Information Value Date Recorded Sex Assigned at Not on file Legal Sex Male 4:11 PM FLIGHT DIRECTOR Gender Identity Not on file Sexual Orientation Not on file documented as of this encounter Plan of Treatment Not on file documented as of this encounter Procedures Procedure Name Priority Date/Time Associated Diagnosis Comments SARS-COV-2 BY MOLECULAR Routine 03/09/2022 7:20 AM CDT documented in this encounter Results * SARS-COV-2 BY MOLECULAR (03/09/2022 7:20 AM CDT) SARSCOV2 NOT DETECTED (Referen ce Range for this test is Not Detected ) [facility] THERMOFISHER FAST DX 03/10/2022 8:15 AM CDT [facility] Comment:This test was perfor med by a RT-PCR method. Other Non-Phlebotomy Collection / Unknown 03/09/2022 7:20 AM CDT 03/09/2022 1:19 PM CDT Narrative [facility] - 03/10/2022 8:15 AM CDT Authorized Fact Sheets about this test for providers and patients are available at: https://www.fda.gov/medical-devices/accuypcqb-amllccpdva-ibeqefc-devices/emergen cy-us e-authorizations us Sher Nuñez MD MICROBIOLOGY - GENERAL ORDERAB LES Final Result [facility] [address] [place] [address], documented in this encounter Visit Diagnoses Diagnosis [...] - 19 06/09/2024 06/09/2024 06/09/2024 1:18 AM FLIGHT DIRECTOR Respiratory Rule-Out 08/27/2024 08/27/2024 025 12:16 AM FLIGHT DIRECTOR documented as of this encounter Care Teams Radio News Anchor Relationship Specialty Start Date End Date Chris Bourgeois MD [address] [facility] [address] [place] [address] PCP - General Internal Medicine 07/03/19 Leopoldo Rodriguez MD Consulting Physician Neurology 09/14/17 06/09/24 documented as of this encounter
--- OUTSIDE RECORDS SUMMARY | 2024-10-02 08:39 | XMS_ITS | Encounter Summary ---
Author Organization [facility] Address [address] [place] [address] Phone Care Team Providers Care County Director Welfare Name Role Phone Leopoldo Rodriguez MD Unavailable [phone] Chris Bourgeois MD Primary Care Provider [phone] Encounter Details Date Type Department Care Team (Late st Contact Info) Description 03/16/2022 Lab Requisition [facility] Laboratory Services 1 [place] [address] Sher Nuñez MD [address] [place] [address] [address] [place] [address] Encounter for screening for COVID-19 Social History Tobacco Use Types Packs/Day Years Used Date Smoking Tobacco: Never Smokeless Tobacco: Never Alcohol Use Standard Drinks/Week Comments Not Currently 0 (1 standard drink = 0.6 oz pur e alcohol) Sexually Active Control Partners Comments Never Sex and Gender Information Value Date Recorded Sex Assigned at Not on file Legal Sex Male 4:11 PM SET UP PERSON Gender Identity Not on file Sexual Orientation Not on file documented as of this encounter Plan of Treatment Not on file documented as of this encounter Procedures Procedure Name Priority Date/Time Associated Diagnosis Comments SARS-COV-2 BY MOLECULAR Routine 03/16/2022 6:51 AM CDT Encounter for screening for COVID-19 documented in this encounter Results * SARS-COV-2 BY MOLECULAR (03/16/2022 6:51 AM CDT) SARSCOV2 NOT DETECTED (Referen ce Range for this test is Not Detected ) [facility] THERMOFISHER FAST DX 03/17/2022 8:39 AM CDT [facility] Comment:This test was perfor med by a RT-PCR method. Other Non-Phlebotomy Collection / Unknown 03/16/2022 6:51 AM CDT 03/16/2022 11:31 AM CDT Narrative [facility] - 03/17/2022 8:39 AM CDT Authorized Fact Sheets about this test for providers and patients are available at: https://www.fda.gov/medical-devices/ftdepbivh-mzinfexdzx-giqejej-devices/emergen cy-us e-authorizations us Sher Nuñez MD MICROBIOLOGY - GENERAL ORDERAB LES Final Result [facility] [address] [place] [address], documented in this encounter Visit Diagnoses Diagnosis [...] - 19 06/09/2024 06/09/2024 06/09/2024 1:18 AM SET UP PERSON Respiratory Rule-Out 08/27/2024 08/27/2024 025 12:16 AM SET UP PERSON documented as of this encounter Care Teams County Director Welfare Relationship Specialty Start Date End Date Chris Bourgeois MD [address] [facility] [address] [place] [address] PCP - General Internal Medicine 07/03/19 Leopoldo Rodriguez MD Consulting Physician Neurology 09/14/17 06/09/24 documented as of this encounter
--- OUTSIDE RECORDS SUMMARY | 2024-10-02 08:39 | XMS_ITS | Encounter Summary ---
Author Organization [facility] Address [address] [place] [address] Phone Care Team Providers Care Medical Claims Manager Name Role Phone Leopoldo Rodriguez MD Unavailable [phone] Chris Bourgeois MD Primary Care Provider Encounter Details Date Type Department Care Team (Late st Contact Info) Description 11/17/2021 Lab Requisition [facility] Laboratory Services 1 [place] [address] Sher Nuñez MD [address] [place] [address] [address] [place] [address] Encounter for screening for COVID-19 Social History Tobacco Use Types Packs/Day Years Used Date Smoking Tobacco: Never Smokeless Tobacco: Never Alcohol Use Standard Drinks/Week Comments Not Currently 0 (1 standard drink = 0.6 oz pur e alcohol) Sexually Active Control Partners Comments Never Sex and Gender Information Value Date Recorded Sex Assigned at Not on file Legal Sex Male 4:11 PM SHIFT BOSS Gender Identity Not on file Sexual Orientation Not on file documented as of this encounter Plan of Treatment Not on file documented as of this encounter Procedures Procedure Name Priority Date/Time Associated Diagnosis Comments SARS-COV-2 BY MOLECULAR Routine 11/17/2021 7:17 AM CDT Encounter for screening for COVID-19 documented in this encounter Results * SARS-COV-2 BY MOLECULAR (11/17/2021 7:17 AM CDT) SARSCOV2 NOT DETECTED (Referen ce Range for this test is Not Detected ) [facility] THERMOFISHER FAST DX 11/18/2021 11:37 AM CDT [facility] Comment:This test was perfor med by a RT-PCR method. Other Non-Phlebotomy Collection / Unknown 11/17/2021 7:17 AM CDT 11/17/2021 1:38 PM CDT Narrative [facility] - 11/18/2021 11:37 AM CDT Authorized Fact Sheets about this test for providers and patients are available at: https://www.fda.gov/medical-devices/mxodshxem-zcscrufbpy-qqwaggn-devices/emergen cy-us e-authorizations us Sher Nuñez MD MICROBIOLOGY - GENERAL ORDERAB LES Final Result [facility] [address] [place] [address], documented in this encounter Visit Diagnoses Diagnosis [...] - 19 06/09/2024 06/09/2024 06/09/2024 1:18 AM SHIFT BOSS Respiratory Rule-Out 08/27/2024 08/27/2024 025 12:16 AM SHIFT BOSS documented as of this encounter Care Teams Medical Claims Manager Relationship Specialty Start Date End Date Chris Bourgeois MD [address] [facility] [address] [place] [address] PCP - General Internal Medicine 07/03/19 Leopoldo Rodriguez MD Consulting Physician Neurology 09/14/17 06/09/24 documented as of this encounter
--- OUTSIDE RECORDS SUMMARY | 2024-10-02 08:39 | XMS_ITS | Encounter Summary ---
Author Organization [facility] Address [address] [place] [address] Phone Care Team Providers Care Sewing Machine Attachment Tester Name Role Phone Leopoldo Rodriguez MD Unavailable [phone] Chris Bourgeois MD Primary Care Provider [phone] Encounter Details Date Type Department Care Team (Late st Contact Info) Description 03/30/2022 Lab Requisition [facility] Laboratory Services 1 [place] [address] Sher Nuñez MD [address] [place] [address] [address] [place] [address] Encounter for screening for COVID-19 Social History Tobacco Use Types Packs/Day Years Used Date Smoking Tobacco: Never Smokeless Tobacco: Never Alcohol Use Standard Drinks/Week Comments Not Currently 0 (1 standard drink = 0.6 oz pur e alcohol) Sexually Active Control Partners Comments Never Sex and Gender Information Value Date Recorded Sex Assigned at Not on file Legal Sex Male 4:11 PM ELECTRICIAN MASTER Gender Identity Not on file Sexual Orientation Not on file documented as of this encounter Plan of Treatment Not on file documented as of this encounter Procedures Procedure Name Priority Date/Time Associated Diagnosis Comments SARS-COV-2 BY MOLECULAR Routine 03/30/2022 7:24 AM CDT Encounter for screening for COVID-19 documented in this encounter Results * SARS-COV-2 BY MOLECULAR (03/30/2022 7:24 AM CDT) SARSCOV2 NOT DETECTED (Referen ce Range for this test is Not Detected ) [facility] THERMOFISHER FAST DX 03/31/2022 8:42 AM CDT [facility] Comment:This test was perfor med by a RT-PCR method. Other COVID 19 Home Health/ Residential Facility Collection / Unknown 03/30/2022 7:24 AM CDT 03/30/2022 1:17 PM CDT Narrative [facility] - 03/31/2022 8:42 AM CDT Authorized Fact Sheets about this test for providers and patients are available at: https://www.fda.gov/medical-devices/ccpywqeae-lpdhbofgum-akiygpg-devices/emergen -us e-authorizations us Sher Nuñez MD MICROBIOLOGY - GENERAL ORDERAB LES Final Result [facility] [address] [place] [address] [place] [address], documented in this encounter Visit Diagnoses Diagnosis [...] - 19 06/09/2024 06/09/2024 06/09/2024 1:18 AM ELECTRICIAN MASTER Respiratory Rule-Out 08/27/2024 08/27/2024 025 12:16 AM ELECTRICIAN MASTER documented as of this encounter Care Teams Sewing Machine Attachment Tester Relationship Specialty Start Date End Date Chris Bourgeois MD [address] [facility] [address] [place] [address] PCP - General Internal Medicine 07/03/19 Leopoldo Rodriguez MD Consulting Physician Neurology 09/14/17 06/09/24 documented as of this encounter
--- OUTSIDE RECORDS SUMMARY | 2024-10-02 08:39 | XMS_ITS | Encounter Summary ---
Author Organization [facility] Address [address] [place] [address] Phone Care Team Providers Care Instructional Support Services Director Name Role Phone Chris Bourgeois MD Primary Care Provider Encounter Details Date Type Department Care Team (Late st Contact Info) Description 08/27/2024 Lab Requisition [facility] Laboratory Services 1 [place] [address] Sher Nuñez MD [address] [place] [address] [address] [place] [address] Contact with and (suspected) exposure to unspecified [...] on file Legal Sex Male 4:11 PM SAMPLE TESTER Gender Identity Not on file Sexual Orientation Not on file documented as of this encounter Plan of Treatment Not on file documented as of this encounter Visit Diagnoses Diagnosis Contact with and (suspected) exposure to unspecified communicable disease Acute cough documented in this encounter Additional Health Concerns Infection Onset Date Last Indicated Resolved Time Respiratory Rule-Out 08/27/2024 08/27/2024 025 12:16 AM SAMPLE TESTER documented as of this encounter Care Teams Instructional Support Services Director Relationship Specialty Start Date End Date Chris Bourgeois MD [address] [facility] [address] [place] [address] PCP - General Internal Medicine 07/03/19 documented as of this encounter
--- OUTSIDE RECORDS SUMMARY | 2024-10-02 08:39 | XMS_ITS | Encounter Summary ---
Author Organization [facility] Address [address] [place] [address] Phone Care Team Providers Care Plant Breeder Scientist Name Role Phone Leopoldo Rodriguez MD Unavailable [phone] Chris Bourgeois MD Primary Care Provider [phone] Encounter Details Date Type Department Care Team (Late st Contact Info) Description 02/23/2022 Lab Requisition [facility] Laboratory Services 1 [place] [address] Sher Nuñez MD [address] [place] [address] [address] [place] [address] Encounter for screening for COVID-19 Social History Tobacco Use Types Packs/Day Years Used Date Smoking Tobacco: Never Smokeless Tobacco: Never Alcohol Use Standard Drinks/Week Comments Not Currently 0 (1 standard drink = 0.6 oz pur e alcohol) Sexually Active Control Partners Comments Never Sex and Gender Information Value Date Recorded Sex Assigned at Not on file Legal Sex Male 4:11 PM POWER PLANT SUPERINTENDENT Gender Identity Not on file Sexual Orientation Not on file documented as of this encounter Plan of Treatment Not on file documented as of this encounter Procedures Procedure Name Priority Date/Time Associated Diagnosis Comments SARS-COV-2 BY MOLECULAR Routine 02/23/2022 7:06 AM CDT documented in this encounter Results * SARS-COV-2 BY MOLECULAR (02/23/2022 7:06 AM CDT) SARSCOV2 NOT DETECTED (Referen ce Range for this test is Not Detected ) [facility] THERMOFISHER FAST DX 02/24/2022 1:01 PM CDT [facility] Comment:This test was perfor med by a RT-PCR method. Other Non-Phlebotomy Collection / Unknown 02/23/2022 7:06 AM CDT 02/23/2022 1:19 PM CDT Narrative [facility] - 02/24/2022 1:01 PM CDT Authorized Fact Sheets about this test for providers and patients are available at: https://www.fda.gov/medical-devices/vczlwllfg-udpzytuwek-pydnipq-devices/emergen cy-us e-authorizations us Sher Nuñez MD MICROBIOLOGY - GENERAL ORDERAB LES Final Result [facility] [address] [place] [address], documented in this encounter Visit Diagnoses Diagnosis [...] - 19 06/09/2024 06/09/2024 06/09/2024 1:18 AM POWER PLANT SUPERINTENDENT Respiratory Rule-Out 08/27/2024 08/27/2024 025 12:16 AM POWER PLANT SUPERINTENDENT documented as of this encounter Care Teams Plant Breeder Scientist Relationship Specialty Start Date End Date Chris Bourgeois MD [address] [facility] [address] [place] [address] PCP - General Internal Medicine 07/03/19 Leopoldo Rodriguez MD Consulting Physician Neurology 09/14/17 06/09/24 documented as of this encounter
--- OUTSIDE RECORDS SUMMARY | 2024-10-02 08:39 | XMS_ITS | Encounter Summary ---
Author Organization [facility] Address [address] [place] [address] Phone Care Team Providers Care Land Leasing Examiner Name Role Phone Leopoldo Rodriguez MD Unavailable [phone] Chris Bourgeois MD Primary Care Provider [phone] Encounter Details Date Type Department Care Team (Late st Contact Info) Description 12/01/2021 Lab Requisition [facility] Laboratory Services 1 [place] [address] Sher Nuñez MD [address] [place] [address] [facility] [address] [place] [address] Encounter for screening for COVID-19 Social History Tobacco Use Types Packs/Day Years Used Date Smoking Tobacco: Never Smokeless Tobacco: Never Alcohol Use Standard Drinks/Week Comments Not Currently 0 (1 standard drink = 0.6 oz pur e alcohol) Sexually Active Control Partners Comments Never Sex and Gender Information Value Date Recorded Sex Assigned at Not on file Legal Sex Male 4:11 PM INSPECTOR OUTSIDE PRODUCTION Gender Identity Not on file Sexual Orientation Not on file documented as of this encounter Plan of Treatment Not on file documented as of this encounter Procedures Procedure Name Priority Date/Time Associated Diagnosis Comments SARS-COV-2 BY MOLECULAR Routine 12/01/2021 7:16 AM CDT Encounter for screening for COVID-19 documented in this encounter Results * SARS-COV-2 BY MOLECULAR (12/01/2021 7:16 AM CDT) SARSCOV2 NOT DETECTED (Referen ce Range for this test is Not Detected ) [facility] THERMOFISHER FAST DX 12/02/2021 10:13 AM CDT [facility] Comment:This test was perfor med by a RT-PCR method. Other Non-Phlebotomy Collection / Unknown 12/01/2021 7:16 AM CDT 12/01/2021 1:10 PM CDT Narrative [facility] - 12/02/2021 10:13 AM CDT Authorized Fact Sheets about this test for providers and patients are available at: https://www.fda.gov/medical-devices/oupnjrcmo-jmvuexgaok-ixziydp-devices/emergen cy-us e-authorizations us Sher Nuñez MD MICROBIOLOGY - GENERAL ORDERAB LES Final Result [facility] [address] [place] [address], documented in this encounter Visit Diagnoses Diagnosis [...] - 19 06/09/2024 06/09/2024 06/09/2024 1:18 AM INSPECTOR OUTSIDE PRODUCTION Respiratory Rule-Out 08/27/2024 08/27/2024 025 12:16 AM INSPECTOR OUTSIDE PRODUCTION documented as of this encounter Care Teams Land Leasing Examiner Relationship Specialty Start Date End Date Chris Bourgeois MD [address] [facility] [address] [place] [address] PCP - General Internal Medicine 07/03/19 Leopoldo Rodriguez MD Consulting Physician Neurology 09/14/17 06/09/24 documented as of this encounter
--- OUTSIDE RECORDS SUMMARY | 2024-10-02 08:39 | XMS_ITS | Encounter Summary ---
Author Organization [facility] Address [address] [place] [address] Phone Care Team Providers Care Installation Helper Name Role Phone Leopoldo Rodriguez MD Unavailable [phone] Chris Bourgeois MD Primary Care Provider [phone] Encounter Details Date Type Department Care Team (Late st Contact Info) Description 01/05/2022 Lab Requisition [facility] Laboratory Services 1 [place] [address] Sher Nuñez MD [address] [place] [address] [facility] [address] [place] [address] Encounter for screening for COVID-19 Social History Tobacco Use Types Packs/Day Years Used Date Smoking Tobacco: Never Smokeless Tobacco: Never Alcohol Use Standard Drinks/Week Comments Not Currently 0 (1 standard drink = 0.6 oz pur e alcohol) Sexually Active Control Partners Comments Never Sex and Gender Information Value Date Recorded Sex Assigned at Not on file Legal Sex Male 4:11 PM SAUSAGE CUTTER Gender Identity Not on file Sexual Orientation Not on file documented as of this encounter Plan of Treatment Not on file documented as of this encounter Procedures Procedure Name Priority Date/Time Associated Diagnosis Comments SARS-COV-2 BY MOLECULAR Routine 01/05/2022 7:26 AM CDT Encounter for screening for COVID-19 documented in this encounter Results * SARS-COV-2 BY MOLECULAR (01/05/2022 7:26 AM CDT) SARSCOV2 NOT DETECTED (Referen ce Range for this test is Not Detected ) [facility] THERMOFISHER FAST DX 01/06/2022 8:31 AM CDT [facility] Comment:This test was perfor med by a RT-PCR method. Other Non-Phlebotomy Collection / Unknown 01/05/2022 7:26 AM CDT 01/05/2022 10:28 AM CDT Narrative [facility] - 01/06/2022 8:31 AM CDT Authorized Fact Sheets about this test for providers and patients are available at: https://www.fda.gov/medical-devices/viukcqcqi-zllwuzdcmh-gqtngeh-devices/emergen cy-us e-authorizations us Sher Nuñez MD MICROBIOLOGY - GENERAL ORDERAB LES Final Result [facility] [address] [place] [address], documented in this encounter Visit Diagnoses Diagnosis [...] - 19 06/09/2024 06/09/2024 06/09/2024 1:18 AM SAUSAGE CUTTER Respiratory Rule-Out 08/27/2024 08/27/2024 025 12:16 AM SAUSAGE CUTTER documented as of this encounter Care Teams Installation Helper Relationship Specialty Start Date End Date Chris Bourgeois MD [address] [facility] [address] [place] [address] PCP - General Internal Medicine 07/03/19 Leopoldo Rodriguez MD Consulting Physician Neurology 09/14/17 06/09/24 documented as of this encounter
--- OUTSIDE RECORDS SUMMARY | 2024-10-02 08:39 | XMS_ITS | Encounter Summary ---
Author Organization [facility] Address [address] [place] [address] Phone Care Team Providers Care Summer Law Associate Name Role Phone Leopoldo Rodriguez MD Unavailable [phone] Chris Bourgeois MD Primary Care Provider Encounter Details Date Type Department Care Team (Late st Contact Info) Description 01/26/2022 Lab Requisition [facility] Laboratory Services 1 [place] [address] Sher Nuñez MD [address] [place] [address] [facility] [address] [place] [address] Encounter for screening for COVID-19 Social History Tobacco Use Types Packs/Day Years Used Date Smoking Tobacco: Never Smokeless Tobacco: Never Alcohol Use Standard Drinks/Week Comments Not Currently 0 (1 standard drink = 0.6 oz pur e alcohol) Sexually Active Control Partners Comments Never Sex and Gender Information Value Date Recorded Sex Assigned at Not on file Legal Sex Male 4:11 PM LENS GRINDER ROUGH Gender Identity Not on file Sexual Orientation Not on file documented as of this encounter Plan of Treatment Not on file documented as of this encounter Procedures Procedure Name Priority Date/Time Associated Diagnosis Comments SARS-COV-2 BY MOLECULAR Routine 01/26/2022 7:12 AM CDT Encounter for screening for COVID-19 documented in this encounter Results * SARS-COV-2 BY MOLECULAR (01/26/2022 7:12 AM CDT) SARSCOV2 NOT DETECTED (Referen ce Range for this test is Not Detected ) [facility] THERMOFISHER FAST DX 01/27/2022 12:15 AM CDT [facility] Comment:This test was perfor med by a RT-PCR method. Other Non-Phlebotomy Collection / Unknown 01/26/2022 7:12 AM CDT 01/26/2022 11:38 AM CDT Narrative [facility] - 01/27/2022 12:15 AM CDT Authorized Fact Sheets about this test for providers and patients are available at: https://www.fda.gov/medical-devices/wgpcvudft-mpxnzusbvs-mzaynzx-devices/emergen cy-us e-authorizations us Sher Nuñez MD MICROBIOLOGY - GENERAL ORDERAB LES Final Result [facility] [address] [place] [address], documented in this encounter Visit Diagnoses Diagnosis [...] - 19 06/09/2024 06/09/2024 06/09/2024 1:18 AM LENS GRINDER ROUGH Respiratory Rule-Out 08/27/2024 08/27/2024 025 12:16 AM LENS GRINDER ROUGH documented as of this encounter Care Teams Summer Law Associate Relationship Specialty Start Date End Date Chris Bourgeois MD [address] [facility] [address] [place] [address] PCP - General Internal Medicine 07/03/19 Leopoldo Rodriguez MD Consulting Physician Neurology 09/14/17 06/09/24 documented as of this encounter
--- OUTSIDE RECORDS SUMMARY | 2024-10-02 08:39 | XMS_ITS | Encounter Summary ---
Author Organization [facility] Address [address] [place] [address] Phone Care Team Providers Care Teacher Of The Visually Impaired Name Role Phone Leopoldo Rodriguez MD Unavailable [phone] Chris Bourgeois MD Primary Care Provider [phone] Encounter Details Date Type Department Care Team (Late st Contact Info) Description 03/02/2022 Lab Requisition [facility] Laboratory Services 1 [place] [address] Sher Nuñez MD [address] [place] [address] [facility] [address] [place] [address] Encounter for screening for COVID-19 Social History Tobacco Use Types Packs/Day Years Used Date Smoking Tobacco: Never Smokeless Tobacco: Never Alcohol Use Standard Drinks/Week Comments Not Currently 0 (1 standard drink = 0.6 oz pur e alcohol) Sexually Active Control Partners Comments Never Sex and Gender Information Value Date Recorded Sex Assigned at Not on file Legal Sex Male 4:11 PM DIRECTOR OF STRATEGIC SOURCING Gender Identity Not on file Sexual Orientation Not on file documented as of this encounter Plan of Treatment Not on file documented as of this encounter Procedures Procedure Name Priority Date/Time Associated Diagnosis Comments SARS-COV-2 BY MOLECULAR Routine 03/02/2022 7:17 AM CDT Encounter for screening for COVID-19 documented in this encounter Results * SARS-COV-2 BY MOLECULAR (03/02/2022 7:17 AM CDT) SARSCOV2 NOT DETECTED (Referen ce Range for this test is Not Detected ) [facility] THERMOFISHER FAST DX 03/03/2022 10:30 AM CDT [facility] Comment:This test was perfor med by a RT-PCR method. Other Non-Phlebotomy Collection / Unknown 03/02/2022 7:17 AM CDT 03/02/2022 12:20 PM CDT Narrative [facility] - 03/03/2022 10:30 AM CDT Authorized Fact Sheets about this test for providers and patients are available at: https://www.fda.gov/medical-devices/caxodjpuf-kjzetonmdx-vevpkfi-devices/emergen cy-us e-authorizations us Sher Nuñez MD MICROBIOLOGY - GENERAL ORDERAB LES Final Result [facility] [address] [place] [address], documented in this encounter Visit Diagnoses Diagnosis [...] - 19 06/09/2024 06/09/2024 06/09/2024 1:18 AM DIRECTOR OF STRATEGIC SOURCING Respiratory Rule-Out 08/27/2024 08/27/2024 025 12:16 AM DIRECTOR OF STRATEGIC SOURCING documented as of this encounter Care Teams Teacher Of The Visually Impaired Relationship Specialty Start Date End Date Chris Bourgeois MD [address] [facility] [address] [place] [address] PCP - General Internal Medicine 07/03/19 Leopoldo Rodriguez MD Consulting Physician Neurology 09/14/17 06/09/24 documented as of this encounter
--- OUTSIDE RECORDS SUMMARY | 2024-10-02 08:39 | XMS_ITS | Encounter Summary ---
Author Organization [facility] Address [address] [place] [address] Phone Care Team Providers Care Optical Laboratory Technician Name Role Phone Leopoldo Rodriguez MD Unavailable Chris Bourgeois MD Primary Care Provider [phone] Encounter Details Date Type Department Care Team (Late st Contact Info) Description 09/01/2021 Lab Requisition [facility] Laboratory Services 1 [place] [address] Sher Nuñez MD [address] [place] [address] [facility] [address] [place] [address] Encounter for screening for COVID-19 Social History Tobacco Use Types Packs/Day Years Used Date Smoking Tobacco: Never Smokeless Tobacco: Never Alcohol Use Standard Drinks/Week Comments Not Currently 0 (1 standard drink = 0.6 oz pur e alcohol) Sexually Active Control Partners Comments Never Sex and Gender Information Value Date Recorded Sex Assigned at Not on file Legal Sex Male 4:11 PM PARTS DELIVERY DRIVER Gender Identity Not on file Sexual Orientation Not on file documented as of this encounter Plan of Treatment Not on file documented as of this encounter Procedures Procedure Name Priority Date/Time Associated Diagnosis Comments SARS-COV-2 BY MOLECULAR Routine 09/01/2021 6:33 AM PARTS DELIVERY DRIVER Encounter for screening for COVID-19 documented in this encounter Results * SARS-COV-2 BY MOLECULAR (09/01/2021 6:33 AM PARTS DELIVERY DRIVER) SARSCOV2 NOT DETECTED (Referen ce Range for this test is Not Detected ) [facility] THERMOFISHER FAST DX 09/01/2021 11:49 PM PARTS DELIVERY DRIVER [facility] Comment:This test was perfor med by a RT-PCR method. Other Non-Phlebotomy Collection / Unknown 09/01/2021 6:33 AM PARTS DELIVERY DRIVER 09/01/2021 10:54 AM PARTS DELIVERY DRIVER Narrative [facility] - 09/01/2021 11:49 PM PARTS DELIVERY DRIVER Authorized Fact Sheets about this test for providers and patients are available at: https://www.fda.gov/medical-devices/zofpoovti-refzvaiush-oimotsg-devices/emergen cy-us e-authorizations us Sher Nuñez MD MICROBIOLOGY - GENERAL ORDERAB LES Final Result [facility] [address] [place] [address], documented in this encounter Visit Diagnoses Diagnosis Encounter for screening for COVID-19 documented in this encounter Additional Health Concerns Infection Onset Date Last Indicated Resolved Time COVID - 19 09/01/2021 09/01/2021 09/21/2021 12:1 6 AM PARTS DELIVERY DRIVER COVID - 19 09/29/2021 10/06/2021 10/26/2021 12:1 7 AM CDT COVID - 19 11/03/2021 05/04/2022 05/05/2022 12:1 8 AM CDT COVID - 19 Confirmed 05/04/2022 05/04/2022 022 12:16 AM CDT COVID - 19 07/20/2022 10/05/2022 10/15/2022 12:1 6 AM CDT COVID - 19 06/09/2024 06/09/2024 06/09/2024 1:18 AM PARTS DELIVERY DRIVER Respiratory Rule-Out 08/27/2024 08/27/2024 025 12:16 AM PARTS DELIVERY DRIVER documented as of this encounter Care Teams Optical Laboratory Technician Relationship Specialty Start Date End Date Chris Bourgeois MD [address] [place] [address] PCP - General Internal Medicine 07/03/19 Leopoldo Rodriguez MD Consulting Physician Neurology 09/14/17 06/09/24 documented as of this encounter
--- OUTSIDE RECORDS SUMMARY | 2024-10-02 08:39 | XMS_ITS | Encounter Summary ---
Author Organization [facility] Address [address] 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 Encounter Details Date Type Department Care Team (Late st Contact Info) Description 04/05/2022 Nursing Facility [facility] [address] [place] [id number] Leopoldo Rodriguez MD [address] [place] [address] Social History Tobacco Use Types Packs/Day Years Used Date Smoking Tobacco: Never Smokeless Tobacco: Never Alcohol Use Standard Drinks/Week Comments Not Currently 0 (1 standard drink = 0.6 oz pur e alcohol) Sexually Active Control Partners Comments Never Sex and Gender Information Value Date Recorded Sex Assigned at Not on file Legal Sex Male 4:11 PM CHILD WELFARE SPECIALIST Gender Identity Not on file Sexual Orientation Not on file COVID-19 Exposure Response Date Recorded In the last 10 days, have yo u been in contact with someone who was confirmed or suspected to have Coronavirus/COVID-19? No / Unsure 04/05/2022 3:26 PM CDT documented as of this encounter Last Filed Vital Signs Vital Sign Reading Time Taken Comments Blood Pressure 189/98 04/05/2022 10:09 AM CDT Pulse 97 04/05/2022 10:09 AM CDT Temperature 36.7 C (98 F) 04/05/2022 10:09 AM CDT Respiratory Rate 16 04/05/2022 10:09 AM CDT Oxygen Saturation 97% 04/05/2022 10:09 AM CDT Inhaled Oxygen Concentration - - Weight - - Height - - Body Mass Index - - documented in this encounter Plan of Treatment [...] - 19 06/09/2024 06/09/2024 06/09/2024 1:18 AM CHILD WELFARE SPECIALIST Respiratory Rule-Out 08/27/2024 08/27/2024 025 12:16 AM CHILD WELFARE SPECIALIST documented as of this encounter Care Teams Systems Design Engineer Relationship Specialty Start Date End Date Chris Bourgeois MD [address] [facility] [address] [place] [address] PCP - General Internal Medicine 07/03/19 Leopoldo Rodriguez MD Consulting Physician Neurology 09/14/17 06/09/24 documented as of this encounter
--- OUTSIDE RECORDS SUMMARY | 2024-10-02 08:39 | XMS_ITS | Encounter Summary ---
Author Organization [facility] Address [address] [place] [address] Phone Care Team Providers Care Transcriber Name Role Phone Leopoldo Rodriguez MD Unavailable [phone] Chris Bourgeois MD Primary Care Provider [phone] Encounter Details Date Type Department Care Team (Late st Contact Info) Description 08/11/2021 Lab Requisition [facility] Laboratory Services 1 [place] [address] Sher Nuñez MD [address] [place] [address] [facility] [address] [place] [address] Encounter for screening for COVID-19 Social History Tobacco Use Types Packs/Day Years Used Date Smoking Tobacco: Never Smokeless Tobacco: Never Alcohol Use Standard Drinks/Week Comments Not Currently 0 (1 standard drink = 0.6 oz pur e alcohol) Sexually Active Control Partners Comments Never Sex and Gender Information Value Date Recorded Sex Assigned at Not on file Legal Sex Male 4:11 PM BUSINESS LIAISON MANAGER Gender Identity Not on file Sexual Orientation Not on file documented as of this encounter Plan of Treatment Not on file documented as of this encounter Procedures Procedure Name Priority Date/Time Associated Diagnosis Comments SARS-COV-2 BY MOLECULAR Routine 08/11/2021 9:00 AM BUSINESS LIAISON MANAGER Encounter for screening for COVID-19 documented in this encounter Results * (ABNORMAL) SARS-COV-2 BY MOLECULAR (08/11/2021 9:00 AM BUSINESS LIAISON MANAGER) SARSCOV2 DETECTED( A) (Referenc e Range for this test is Not Detected) [facility] THERMOFISHER FAST DX 08/13/2021 9:45 AM BUSINESS LIAISON MANAGER [facility] Comment:This test was perfor med by a RT-PCR method. Other Non-Phlebotomy Collection / Unknown 08/11/2021 9:00 AM BUSINESS LIAISON MANAGER 08/11/2021 2:15 PM BUSINESS LIAISON MANAGER Narrative [facility] - 08/13/2021 9:45 AM BUSINESS LIAISON MANAGER Authorized Fact Sheets about this test for providers and patients are available at: https://www.fda.gov/medical-devices/ogtsdcuow-wnlpxhrfcr-iytmiqe-devices/emergen cy-us e-authorizations us Sher Nuñez MD MICROBIOLOGY - GENERAL ORDERAB LES Final Result [facility] [address] [place] [address], documented in this encounter Visit Diagnoses Diagnosis Encounter for screening for COVID-19 documented in this encounter Additional Health Concerns Infection Onset Date Last Indicated Resolved Time COVID - 19 04/14/2021 08/11/2021 08/13/2021 9:45 AM BUSINESS LIAISON MANAGER COVID - 19 Confirmed 08/11/2021 08/11/2021 022 12:16 AM BUSINESS LIAISON MANAGER COVID - 19 09/01/2021 09/01/2021 09/21/2021 12:1 6 AM BUSINESS LIAISON MANAGER COVID - 19 09/29/2021 10/06/2021 10/26/2021 12:1 7 AM CDT COVID - 19 11/03/2021 05/04/2022 05/05/2022 12:1 8 AM CDT COVID - 19 Confirmed 05/04/2022 05/04/2022 022 12:16 AM CDT COVID - 19 07/20/2022 10/05/2022 10/15/2022 12:1 6 AM CDT COVID - 19 06/09/2024 06/09/2024 06/09/2024 1:18 AM BUSINESS LIAISON MANAGER Respiratory Rule-Out 08/27/2024 08/27/2024 025 12:16 AM BUSINESS LIAISON MANAGER documented as of this encounter Care Teams Transcriber Relationship Specialty Start Date End Date Chris Bourgeois MD [address] [facility] [address] [place] [address] PCP - General Internal Medicine 07/03/19 Leopoldo Rodriguez MD Consulting Physician Neurology 09/14/17 06/09/24 documented as of this encounter
--- OUTSIDE RECORDS SUMMARY | 2024-10-02 08:39 | XMS_ITS | Encounter Summary ---
Author Organization [facility] Address [address] [place] [address] Phone Care Team Providers Care Crown Assembly Machine Operator Name Role Phone Leopoldo Rodriguez MD Unavailable [phone] Chris Bourgeois MD Primary Care Provider [phone] Encounter Details Date Type Department Care Team (Late st Contact Info) Description 02/16/2022 Lab Requisition [facility] Laboratory Services 1 [place] [address] Sher Nuñez MD [address] [place] [address] [facility] [address] [place] [address] Encounter for screening for COVID-19 Social History Tobacco Use Types Packs/Day Years Used Date Smoking Tobacco: Never Smokeless Tobacco: Never Alcohol Use Standard Drinks/Week Comments Not Currently 0 (1 standard drink = 0.6 oz pur e alcohol) Sexually Active Control Partners Comments Never Sex and Gender Information Value Date Recorded Sex Assigned at Not on file Legal Sex Male 4:11 PM HYDRAULIC CHAIR ASSEMBLER Gender Identity Not on file Sexual Orientation Not on file documented as of this encounter Plan of Treatment Not on file documented as of this encounter Procedures Procedure Name Priority Date/Time Associated Diagnosis Comments SARS-COV-2 BY MOLECULAR Routine 02/16/2022 7:41 AM CDT Encounter for screening for COVID-19 documented in this encounter Results * SARS-COV-2 BY MOLECULAR (02/16/2022 7:41 AM CDT) SARSCOV2 NOT DETECTED (Referen ce Range for this test is Not Detected ) [facility] THERMOFISHER FAST DX 02/17/2022 12:23 AM CDT [facility] Comment:This test was perfor med by a RT-PCR method. Other Non-Phlebotomy Collection / Unknown 02/16/2022 7:41 AM CDT 02/16/2022 1:46 PM CDT Narrative [facility] - 02/17/2022 12:23 AM CDT Authorized Fact Sheets about this test for providers and patients are available at: https://www.fda.gov/medical-devices/uofmgtsjk-dmwsmrtyaj-wyyulew-devices/emergen cy-us e-authorizations us Sher Nuñez MD MICROBIOLOGY - GENERAL ORDERAB LES Final Result [facility] [address] [place] [address], documented in this encounter Visit Diagnoses Diagnosis [...] - 19 06/09/2024 06/09/2024 06/09/2024 1:18 AM HYDRAULIC CHAIR ASSEMBLER Respiratory Rule-Out 08/27/2024 08/27/2024 025 12:16 AM HYDRAULIC CHAIR ASSEMBLER documented as of this encounter Care Teams Crown Assembly Machine Operator Relationship Specialty Start Date End Date Chris Bourgeois MD [address] [facility] [address] [place] [address] PCP - General Internal Medicine 07/03/19 Leopoldo Rodriguez MD Consulting Physician Neurology 09/14/17 06/09/24 documented as of this encounter
--- OUTSIDE RECORDS SUMMARY | 2024-10-02 08:39 | XMS_ITS | Encounter Summary ---
Author Organization [facility] Address [address] [place] [address] Phone Care Team Providers Care Personal Companion Name Role Phone Leopoldo Rodriguez MD Unavailable [phone] Chris Bourgeois MD Primary Care Provider [phone] Encounter Details Date Type Department Care Team (Late st Contact Info) Description 12/15/2021 Lab Requisition [facility] Laboratory Services 1 [place] [address] Sher Nuñez MD [address] [place] [address] [address] [place] [address] Encounter for screening for COVID-19 Social History Tobacco Use Types Packs/Day Years Used Date Smoking Tobacco: Never Smokeless Tobacco: Never Alcohol Use Standard Drinks/Week Comments Not Currently 0 (1 standard drink = 0.6 oz pur e alcohol) Sexually Active Control Partners Comments Never Sex and Gender Information Value Date Recorded Sex Assigned at Not on file Legal Sex Male 4:11 PM HAMMERSMITH HELPER Gender Identity Not on file Sexual Orientation Not on file documented as of this encounter Plan of Treatment Not on file documented as of this encounter Procedures Procedure Name Priority Date/Time Associated Diagnosis Comments SARS-COV-2 BY MOLECULAR Routine 12/15/2021 6:59 AM CDT Encounter for screening for COVID-19 documented in this encounter Results * SARS-COV-2 BY MOLECULAR (12/15/2021 6:59 AM CDT) SARSCOV2 NOT DETECTED (Referen ce Range for this test is Not Detected ) [facility] THERMOFISHER FAST DX 12/16/2021 2:01 PM CDT [facility] Comment:This test was perfor med by a RT-PCR method. Other Non-Phlebotomy Collection / Unknown 12/15/2021 6:59 AM CDT 12/15/2021 10:01 AM CDT Narrative [facility] - 12/16/2021 2:01 PM CDT Authorized Fact Sheets about this test for providers and patients are available at: https://www.fda.gov/medical-devices/mwafepdec-udpytlwkso-tessvyx-devices/emergen cy-us e-authorizations us Sher Nuñez MD MICROBIOLOGY - GENERAL ORDERAB LES Final Result [facility] [address] [place] [address], documented in this encounter Visit Diagnoses Diagnosis [...] - 19 06/09/2024 06/09/2024 06/09/2024 1:18 AM HAMMERSMITH HELPER Respiratory Rule-Out 08/27/2024 08/27/2024 025 12:16 AM HAMMERSMITH HELPER documented as of this encounter Care Teams Personal Companion Relationship Specialty Start Date End Date Chris Bourgeois MD [address] [facility] [address] [place] [address] PCP - General Internal Medicine 07/03/19 Leopoldo Rodriguez MD Consulting Physician Neurology 09/14/17 06/09/24 documented as of this encounter
--- OUTSIDE RECORDS SUMMARY | 2024-10-02 08:39 | XMS_ITS | Encounter Summary ---
Author Organization [facility] Address [address] [place] [address] Phone Care Team Providers Care Auto Specialty Services Manager Name Role Phone Leopoldo Rodriguez MD Unavailable [phone] Chris Bourgeois MD Primary Care Provider [phone] Encounter Details Date Type Department Care Team (Late st Contact Info) Description 11/10/2021 Lab Requisition [facility] Laboratory Services 1 [place] [address] Sher Nuñez MD [address] [place] [address] [address] [place] [address] Encounter for screening for COVID-19 Social History Tobacco Use Types Packs/Day Years Used Date Smoking Tobacco: Never Smokeless Tobacco: Never Alcohol Use Standard Drinks/Week Comments Not Currently 0 (1 standard drink = 0.6 oz pur e alcohol) Sexually Active Control Partners Comments Never Sex and Gender Information Value Date Recorded Sex Assigned at Not on file Legal Sex Male 4:11 PM PRUNER Gender Identity Not on file Sexual Orientation Not on file documented as of this encounter Plan of Treatment Not on file documented as of this encounter Procedures Procedure Name Priority Date/Time Associated Diagnosis Comments SARS-COV-2 BY MOLECULAR Routine 11/10/2021 7:33 AM CDT Encounter for screening for COVID-19 documented in this encounter Results * SARS-COV-2 BY MOLECULAR (11/10/2021 7:33 AM CDT) SARSCOV2 NOT DETECTED (Referen ce Range for this test is Not Detected ) [facility] THERMOFISHER FAST DX 11/10/2021 11:11 PM CDT [facility] Comment:This test was perfor med by a RT-PCR method. Other No Phlebotomy Charged / Unknown 11/10/2021 7:33 AM CDT 11/10/2021 1:09 PM CDT Narrative [facility] - 11/10/2021 11:11 PM CDT Authorized Fact Sheets about this test for providers and patients are available at: https://www.fda.gov/medical-devices/ylwttepyu-nibzueewif-bmlyadz-devices/emergen cy-us e-authorizations us Sher Nuñez MD MICROBIOLOGY - GENERAL ORDERAB LES Final Result [facility] [address] [place] [address], documented in this encounter Visit Diagnoses Diagnosis [...] - 19 06/09/2024 06/09/2024 06/09/2024 1:18 AM PRUNER Respiratory Rule-Out 08/27/2024 08/27/2024 025 12:16 AM PRUNER documented as of this encounter Care Teams Auto Specialty Services Manager Relationship Specialty Start Date End Date Chris Bourgeois MD [address] [facility] [address] [place] [address] PCP - General Internal Medicine 07/03/19 Leopoldo Rodriguez MD Consulting Physician Neurology 09/14/17 06/09/24 documented as of this encounter
--- OUTSIDE RECORDS SUMMARY | 2024-10-02 08:39 | XMS_ITS | Encounter Summary ---
Author Organization [facility] Address [address] [place] [address] Phone Care Team Providers Care Polymer Tester Name Role Phone Leopoldo Rodriguez MD Unavailable [phone] Chris Bourgeois MD Primary Care Provider [phone] Encounter Details Date Type Department Care Team (Late st Contact Info) Description 11/03/2021 Lab Requisition [facility] Laboratory Services 1 [place] [address] Sher Nuñez MD [address] [place] [address] [address] [place] [address] Encounter for screening for COVID-19 Social History Tobacco Use Types Packs/Day Years Used Date Smoking Tobacco: Never Smokeless Tobacco: Never Alcohol Use Standard Drinks/Week Comments Not Currently 0 (1 standard drink = 0.6 oz pur e alcohol) Sexually Active Control Partners Comments Never Sex and Gender Information Value Date Recorded Sex Assigned at Not on file Legal Sex Male 4:11 PM FINAL FINISHER Gender Identity Not on file Sexual Orientation Not on file documented as of this encounter Plan of Treatment Not on file documented as of this encounter Procedures Procedure Name Priority Date/Time Associated Diagnosis Comments SARS-COV-2 BY MOLECULAR Routine 11/03/2021 7:26 AM CDT Encounter for screening for COVID-19 documented in this encounter Results * SARS-COV-2 BY MOLECULAR (11/03/2021 7:26 AM CDT) SARSCOV2 NOT DETECTED (Referen ce Range for this test is Not Detected ) [facility] THERMOFISHER FAST DX 11/04/2021 6:24 AM CDT [facility] Comment:This test was perfor med by a RT-PCR method. Other No Phlebotomy Charged / Unknown 11/03/2021 7:26 AM CDT 11/03/2021 11:36 AM CDT Narrative [facility] - 11/04/2021 6:24 AM CDT Authorized Fact Sheets about this test for providers and patients are available at: https://www.fda.gov/medical-devices/syoedjsld-ptybqucais-cyfoipr-devices/emergen cy-us e-authorizations us Sher Nuñez MD MICROBIOLOGY - GENERAL ORDERAB LES Final Result [facility] [address] [place] [address], documented in this encounter Visit Diagnoses Diagnosis [...] - 19 06/09/2024 06/09/2024 06/09/2024 1:18 AM FINAL FINISHER Respiratory Rule-Out 08/27/2024 08/27/2024 025 12:16 AM FINAL FINISHER documented as of this encounter Care Teams Polymer Tester Relationship Specialty Start Date End Date Chris Bourgeois MD [address] [facility] [address] [place] [address] PCP - General Internal Medicine 07/03/19 Leopoldo Rodriguez MD Consulting Physician Neurology 09/14/17 06/09/24 documented as of this encounter
--- OUTSIDE RECORDS SUMMARY | 2024-10-02 08:39 | XMS_ITS | Encounter Summary ---
Author Organization [facility] Address [address] [place] [address] Phone Care Team Providers Care Pick Pack Worker Name Role Phone Leopoldo Rodriguez MD Unavailable Chris Bourgeois MD Primary Care Provider [phone] Encounter Details Date Type Department Care Team (Late st Contact Info) Description 04/06/2022 Lab Requisition [facility] Laboratory Services 1 [place] [address] Sher Nuñez MD [address] [place] [address] [address] [place] [address] Encounter for screening for COVID-19 Social History Tobacco Use Types Packs/Day Years Used Date Smoking Tobacco: Never Smokeless Tobacco: Never Alcohol Use Standard Drinks/Week Comments Not Currently 0 (1 standard drink = 0.6 oz pur e alcohol) Sexually Active Control Partners Comments Never Sex and Gender Information Value Date Recorded Sex Assigned at Not on file Legal Sex Male 4:11 PM ASSOCIATE PROFESSOR OF KINESIOLOGY Gender Identity Not on file Sexual Orientation [...] Associated Diagnosis Comments SARS-COV-2 BY MOLECULAR Routine 04/06/2022 7:24 AM CDT Encounter for screening for COVID-19 documented in this encounter Results * SARS-COV-2 BY MOLECULAR (04/06/2022 7:24 AM CDT) SARSCOV2 NOT DETECTED (Referen ce Range for this test is Not Detected ) [facility] THERMOFISHER FAST DX 04/06/2022 6:16 PM CDT [facility] Comment:This test was perfor med by a RT-PCR method. Other COVID 19 Collection / Unknown 04/06/2022 7:24 AM CDT 04/06/2022 9:28 AM CDT Narrative [facility] - 04/06/2022 6:16 PM CDT Authorized Fact Sheets about this test for providers and patients are available at: https://www.fda.gov/medical-devices/svwbhnryt-zecmmbghxj-zwwdtjv-devices/emergen cy-us e-authorizations us Sher Nuñez MD MICROBIOLOGY - GENERAL ORDERAB LES Final Result Performing Organization Address City/State/[facility] Co de Phone Number [facility] [address] [place] [address], documented in this encounter Visit Diagnoses Diagnosis [...] - 19 06/09/2024 06/09/2024 06/09/2024 1:18 AM ASSOCIATE PROFESSOR OF KINESIOLOGY Respiratory Rule-Out 08/27/2024 08/27/2024 025 12:16 AM ASSOCIATE PROFESSOR OF KINESIOLOGY documented as of this encounter Care Teams Pick Pack Worker Relationship Specialty Start Date End Date Chris Bourgeois MD [address] [place] [address] [place] [address] PCP - General Internal Medicine 07/03/19 Leopoldo Rodriguez MD Consulting Physician Neurology 09/14/17 06/09/24 documented as of this encounter
--- OUTSIDE RECORDS SUMMARY | 2024-10-02 08:39 | XMS_ITS | Encounter Summary ---
Author Organization [facility] Address [address] [place] [address] Phone Care Team Providers Care Office Associate Name Role Phone Leopoldo Rodriguez MD Unavailable [phone] Chris Bourgeois MD Primary Care Provider [phone] Encounter Details Date Type Department Care Team (Late st Contact Info) Description 12/22/2021 Lab Requisition [facility] Laboratory Services 1 [place] [address] Sher Nuñez MD [address] [place] [address] [facility] [address] [place] [address] Encounter for screening for COVID-19 Social History Tobacco Use Types Packs/Day Years Used Date Smoking Tobacco: Never Smokeless Tobacco: Never Alcohol Use Standard Drinks/Week Comments Not Currently 0 (1 standard drink = 0.6 oz pur e alcohol) Sexually Active Control Partners Comments Never Sex and Gender Information Value Date Recorded Sex Assigned at Not on file Legal Sex Male 4:11 PM SAP SPECIALIST Gender Identity Not on file Sexual Orientation Not on file documented as of this encounter Plan of Treatment Not on file documented as of this encounter Procedures Procedure Name Priority Date/Time Associated Diagnosis Comments SARS-COV-2 BY MOLECULAR Routine 12/22/2021 7:11 AM CDT Encounter for screening for COVID-19 documented in this encounter Results * SARS-COV-2 BY MOLECULAR (12/22/2021 7:11 AM CDT) SARSCOV2 NOT DETECTED (Referen ce Range for this test is Not Detected ) [facility] THERMOFISHER FAST DX 12/23/2021 8:04 AM CDT [facility] Comment:This test was perfor med by a RT-PCR method. Other Non-Phlebotomy Collection / Unknown 12/22/2021 7:11 AM CDT 12/22/2021 12:43 PM CDT Narrative [facility] - 12/23/2021 8:04 AM CDT Authorized Fact Sheets about this test for providers and patients are available at: https://www.fda.gov/medical-devices/cmuenkhmt-kswaacjzes-pigftpc-devices/emergen cy-us e-authorizations us Sher Nuñez MD MICROBIOLOGY - GENERAL ORDERAB LES Final Result [facility] [address] [place] [address], documented in this encounter Visit Diagnoses Diagnosis [...] - 19 06/09/2024 06/09/2024 06/09/2024 1:18 AM SAP SPECIALIST Respiratory Rule-Out 08/27/2024 08/27/2024 025 12:16 AM SAP SPECIALIST documented as of this encounter Care Teams Office Associate Relationship Specialty Start Date End Date Chris Bourgeois MD [address] [facility] [address] [place] [address] PCP - General Internal Medicine 07/03/19 Leopoldo Rodriguez MD Consulting Physician Neurology 09/14/17 06/09/24 documented as of this encounter
--- OUTSIDE RECORDS SUMMARY | 2024-10-02 08:39 | XMS_ITS | Encounter Summary ---
Author Organization [facility] Address [address] [place] [address] Phone Care Team Providers Care Dye House Helper Name Role Phone Leopoldo Rodriguez MD Unavailable [phone] Chris Bourgeois MD Primary Care Provider [phone] Encounter Details Date Type Department Care Team (Late st Contact Info) Description 01/12/2022 Lab Requisition [facility] Laboratory Services 1 [place] [address] Sher Nuñez MD [address] [place] [address] [facility] [address] [place] [address] Encounter for screening for COVID-19 Social History Tobacco Use Types Packs/Day Years Used Date Smoking Tobacco: Never Smokeless Tobacco: Never Alcohol Use Standard Drinks/Week Comments Not Currently 0 (1 standard drink = 0.6 oz pur e alcohol) Sexually Active Control Partners Comments Never Sex and Gender Information Value Date Recorded Sex Assigned at Not on file 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 Gender Identity Not on file Sexual Orientation Not on file documented as of this encounter Plan of Treatment Not on file documented as of this encounter Procedures Procedure Name Priority Date/Time Associated Diagnosis Comments SARS-COV-2 BY MOLECULAR Routine 01/12/2022 7:23 AM CDT Encounter for screening for COVID-19 documented in this encounter Results * SARS-COV-2 BY MOLECULAR (01/12/2022 7:23 AM CDT) SARSCOV2 NOT DETECTED (Referen ce Range for this test is Not Detected ) [facility] THERMOFISHER FAST DX 01/12/2022 10:13 PM CDT [facility] Comment:This test was perfor med by a RT-PCR method. Other Non-Phlebotomy Collection / Unknown 01/12/2022 7:23 AM CDT 01/12/2022 9:18 AM CDT Narrative [facility] - 01/12/2022 10:13 PM CDT Authorized Fact Sheets about this test for providers and patients are available at: https://www.fda.gov/medical-devices/ymcjnrpwx-phqssymxjh-lvzxcqq-devices/emergen cy-us e-authorizations us Sher Nuñez MD MICROBIOLOGY - GENERAL ORDERAB LES Final Result [facility] [address] [place] [address], documented in this encounter Visit Diagnoses Diagnosis [...] 06/09/2024 06/09/2024 06/09/2024 1:18 AM FOOD SERVICE SUPERVISOR Respiratory Rule-Out 08/27/2024 08/27/2024 025 12:16 AM FOOD SERVICE SUPERVISOR documented as of this encounter Care Teams Dye House Helper Relationship Specialty Start Date End Date Chris Bourgeois MD [address] [facility] [address] [place] [address] PCP - General Internal Medicine 07/03/19 Leopoldo Rodriguez MD Consulting Physician Neurology 09/14/17 06/09/24 documented as of this encounter
--- OUTSIDE RECORDS SUMMARY | 2024-10-02 08:39 | XMS_ITS | Encounter Summary ---
Author Organization [facility] Address [address] [place] [address] Phone Care Team Providers Care Squirrel Man Name Role Phone Leopoldo Rodriguez MD Unavailable [phone] Chris Bourgeois MD Primary Care Provider [phone] Encounter Details Date Type Department Care Team (Late st Contact Info) Description 01/19/2022 Lab Requisition [facility] Laboratory Services 1 [place] [address] Sher Nuñez MD [address] [place] [address] [address] [place] [address] Encounter for screening for COVID-19 Social History Tobacco Use Types Packs/Day Years Used Date Smoking Tobacco: Never Smokeless Tobacco: Never Alcohol Use Standard Drinks/Week Comments Not Currently 0 (1 standard drink = 0.6 oz pur e alcohol) Sexually Active Control Partners Comments Never Sex and Gender Information Value Date Recorded Sex Assigned at Not on file Legal Sex Male 4:11 PM REGISTERED DIETITIAN Gender Identity Not on file Sexual Orientation Not on file documented as of this encounter Plan of Treatment Not on file documented as of this encounter Procedures Procedure Name Priority Date/Time Associated Diagnosis Comments SARS-COV-2 BY MOLECULAR Routine 01/19/2022 7:24 AM CDT Encounter for screening for COVID-19 documented in this encounter Results * SARS-COV-2 BY MOLECULAR (01/19/2022 7:24 AM CDT) SARSCOV2 NOT DETECTED (Referen ce Range for this test is Not Detected ) [facility] THERMOFISHER FAST DX 01/19/2022 11:45 PM CDT [facility] Comment:This test was perfor med by a RT-PCR method. Other Non-Phlebotomy Collection / Unknown 01/19/2022 7:24 AM CDT 01/19/2022 9:32 AM CDT Narrative [facility] - 01/19/2022 11:45 PM CDT Authorized Fact Sheets about this test for providers and patients are available at: https://www.fda.gov/medical-devices/wcbpvxpuy-mzzqjhovme-pzphaag-devices/emergen cy-us e-authorizations us Sher Nuñez MD MICROBIOLOGY - GENERAL ORDERAB LES Final Result [facility] [address] [place] [address], documented in this encounter Visit Diagnoses Diagnosis [...] - 19 06/09/2024 06/09/2024 06/09/2024 1:18 AM REGISTERED DIETITIAN Respiratory Rule-Out 08/27/2024 08/27/2024 025 12:16 AM REGISTERED DIETITIAN documented as of this encounter Care Teams Squirrel Man Relationship Specialty Start Date End Date Chris Bourgeois MD [address] [facility] [address] [place] [address] PCP - General Internal Medicine 07/03/19 Leopoldo Rodriguez MD Consulting Physician Neurology 09/14/17 06/09/24 documented as of this encounter
--- OUTSIDE RECORDS SUMMARY | 2024-10-02 08:40 | XMS_ITS | Encounter Summary ---
Author Organization [facility] Address [address] [place] [address] Phone Care Team Providers Care Aerodynamics Engineer Name Role Phone Leopoldo Rodriguez MD Unavailable [phone] Chris Bourgeois MD Primary Care Provider [phone] Encounter Details Date Type Department Care Team (Late st Contact Info) Description 10/06/2021 Lab Requisition [facility] Laboratory Services [address] [place] [address] Sher Nuñez MD [address] [place] [address] [facility] [address] [place] [address] Encounter for screening for COVID-19 Social History Tobacco Use Types Packs/Day Years Used Date Smoking Tobacco: Never Smokeless Tobacco: Never Alcohol Use Standard Drinks/Week Comments Not Currently 0 (1 standard drink = 0.6 oz pur e alcohol) Sexually Active Control Partners Comments Never Sex and Gender Information Value Date Recorded Sex Assigned at Not on file 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 Gender Identity Not on file Sexual Orientation Not on file documented as of this encounter Plan of Treatment Not on file documented as of this encounter Procedures Procedure Name Priority Date/Time Associated Diagnosis Comments SARS-COV-2 BY MOLECULAR Routine 10/06/2021 6:59 AM CDT Encounter for screening for COVID-19 documented in this encounter Results * SARS-COV-2 BY MOLECULAR (10/06/2021 6:59 AM CDT) SARSCOV2 NOT DETECTED (Referen ce Range for this test is Not Detected ) [facility] THERMOFISHER FAST DX 10/06/2021 11:53 PM CDT [facility] Comment:This test was perfor med by a RT-PCR method. Other Non-Phlebotomy Collection / Unknown 10/06/2021 6:59 AM CDT 10/06/2021 12:20 PM CDT Narrative [facility] - 10/06/2021 11:53 PM CDT Authorized Fact Sheets about this test for providers and patients are available at: https://www.fda.gov/medical-devices/hjjdlsjry-bmfpjhypbt-nkmpnoo-devices/emergen cy-us e-authorizations us Sher Nuñez MD MICROBIOLOGY - GENERAL ORDERAB LES Final Result [facility] [address] [place] [address], documented in this encounter Visit Diagnoses Diagnosis Encounter for screening for COVID-19 documented in this encounter Additional Health Concerns Infection Onset Date Last Indicated Resolved Time COVID - 19 09/29/2021 10/06/2021 10/26/2021 12:1 7 AM CDT COVID - 19 11/03/2021 05/04/2022 05/05/2022 12:1 8 AM CDT COVID - 19 Confirmed 05/04/2022 05/04/2022 022 12:16 AM CDT COVID - 19 07/20/2022 10/05/2022 10/15/2022 12:1 6 AM CDT COVID - 19 06/09/2024 06/09/2024 06/09/2024 1:18 AM LINK TRAINER OPERATOR Respiratory Rule-Out 08/27/2024 08/27/2024 025 12:16 AM LINK TRAINER OPERATOR documented as of this encounter Care Teams Aerodynamics Engineer Relationship Specialty Start Date End Date Chris Bourgeois MD [address] [facility] [address] [place] [address] PCP - General Internal Medicine 07/03/19 Leopoldo Rodriguez MD Consulting Physician Neurology 09/14/17 06/09/24 documented as of this encounter
--- OUTSIDE RECORDS SUMMARY | 2024-10-02 08:40 | XMS_ITS | Encounter Summary ---
Author Organization [facility] Address [address] [place] [address] Phone Care Team Providers Care [employer] Physical Education Teacher Name Role Phone Leopoldo Rodriguez MD Unavailable [phone] Chris Bourgeois MD Primary Care Provider [phone] Encounter Details Date Type Department Care Team (Late st Contact Info) Description 09/29/2021 [facility] [address] [place] [address] Sher Nuñez MD [address] [place] [address] 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 Gender Identity Not on file Sexual Orientation Not on file documented as of this encounter Plan of Treatment Not on file documented as of this encounter Procedures Procedure Name Priority Date/Time Associated Diagnosis Comments SARS-COV-2 BY MOLECULAR Routine 09/29/2021 6:50 AM ARCHITECTURAL DRAFTSMAN documented in this encounter Results * SARS-COV-2 BY MOLECULAR (09/29/2021 6:50 AM ARCHITECTURAL DRAFTSMAN) SARSCOV2 NOT DETECTED (Referen ce Range for this test is Not Detected ) [facility] THERMOFISHER FAST DX 09/30/2021 10:22 AM ARCHITECTURAL DRAFTSMAN [facility] Comment:This test was perfor med by a RT-PCR method. Other Non-Phlebotomy Collection / Unknown 09/29/2021 6:50 AM ARCHITECTURAL DRAFTSMAN 09/29/2021 11:43 AM ARCHITECTURAL DRAFTSMAN Narrative [facility] - 09/30/2021 10:22 AM ARCHITECTURAL DRAFTSMAN Authorized Fact Sheets about this test for providers and patients are available at: https://www.fda.gov/medical-devices/hyahnueqe-rolcqinjaf-jtwzzwd-devices/emergen -us e-authorizations us Sher Nuñez MD MICROBIOLOGY - GENERAL ORDERAB LES Final Result [facility] [address] [place] [address], documented in this encounter Visit Diagnoses Diagnosis [...] - 19 06/09/2024 06/09/2024 06/09/2024 1:18 AM ARCHITECTURAL DRAFTSMAN Respiratory Rule-Out 08/27/2024 08/27/2024 025 12:16 AM ARCHITECTURAL DRAFTSMAN documented as of this encounter Care Teams High [employer] Physical Education Teacher Relationship Specialty Start Date End Date Chris Bourgeois MD [address] [facility] [address] [place] [address] PCP - General Internal Medicine 07/03/19 Leopoldo Rodriguez MD Consulting Physician Neurology 2/22/18 11/17/24 documented as of this encounter
--- OUTSIDE RECORDS SUMMARY | 2024-10-02 08:40 | XMS_ITS | Encounter Summary ---
Author Organization [facility] Address [address] [place] [address] Phone Care Team Providers Care Sorter/Assay Tech Name Role Phone Leopoldo Rodriguez MD Unavailable [phone] Chris Bourgeois MD Primary Care Provider [phone] Encounter Details Date Type Department Care Team (Late st Contact Info) Description 11/24/2021 Lab Requisition [facility] Laboratory Services [address] [place] [address] Sher Nuñez MD [address] [place] [address] [address] [place] [address] Encounter for screening for COVID-19 Social History Tobacco Use Types Packs/Day Years Used Date Smoking Tobacco: Never Smokeless Tobacco: Never Alcohol Use Standard Drinks/Week Comments Not Currently 0 (1 standard drink = 0.6 oz pur e alcohol) Sexually Active Control Partners Comments Never Sex and Gender Information Value Date Recorded Sex Assigned at Not on file Legal Sex Male 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 Gender Identity Not on file Sexual Orientation Not on file documented as of this encounter Plan of Treatment Not on file documented as of this encounter Procedures Procedure Name Priority Date/Time Associated Diagnosis Comments SARS-COV-2 BY MOLECULAR Routine 11/24/2021 7:10 AM CDT Encounter for screening for COVID-19 documented in this encounter Results * SARS-COV-2 BY MOLECULAR (11/24/2021 7:10 AM CDT) SARSCOV2 NOT DETECTED (Referen ce Range for this test is Not Detected ) [facility] THERMOFISHER FAST DX 11/24/2021 11:40 PM CDT [facility] Comment:This test was perfor med by a RT-PCR method. Other Non-Phlebotomy Collection / Unknown 11/24/2021 7:10 AM CDT 11/24/2021 1:00 PM CDT Narrative [facility] - 11/24/2021 11:40 PM CDT Authorized Fact Sheets about this test for providers and patients are available at: https://www.fda.gov/medical-devices/gzeqolphj-jjkydfmniv-rvxevif-devices/emergen cy-us e-authorizations us Sher Nuñez MD MICROBIOLOGY - GENERAL ORDERAB LES Final Result [facility] [address] [place] [address], documented in this encounter Visit Diagnoses Diagnosis [...] - 19 06/09/2024 06/09/2024 06/09/2024 1:18 AM CERTIFIED JUVENILE PROBATION OFFICER Respiratory Rule-Out 08/27/2024 08/27/2024 025 12:16 AM CERTIFIED JUVENILE PROBATION OFFICER documented as of this encounter Care Teams Sorter/Assay Tech Relationship Specialty Start Date End Date Chris Bourgeois MD [address] [place] [address] PCP - General Internal Medicine 07/03/19 Leopoldo Rodriguez MD Consulting Physician Neurology 09/14/17 06/09/24 documented as of this encounter
== END 2024-10-02 08:20 | disposition home or self-care (01) ==
LOC: ANHBWCAUD 08:21
DX: H90.3 Sensorineural hearing loss, bilateral (principal); H93.8X2 Other specified disorders of left ear; H61.22 Impacted cerumen, left ear
CPT/HCPCS: 92557; 92567